=== PATIENT | male | born 1945 | race Caucasian/White ===

== ENCOUNTER 2016-12-09 11:00 | Emergency (ER) | payer MEDICARE, OTHER ==
--- NOTE | 2016-12-09 11:47 | EDM.PDOC ---
ED HPI GENERAL MEDICAL PROBLEM - General Chief Complaint: Chest Pain Stated Complaint: DIABETIC ISSUES Time Seen by Provider: 12/09/16 11:02 Source of Information: Reports: Patient, Provider History Limitations: Reports: No Limitations - History of Present Illness INITIAL COMMENTS - FREE TEXT/NARRATIVE: The patient presents from [facility] with chest pain. He says he woke up with the pain. It was sharp and in the middle of his chest to the left chest. He was short of breath with it. He took aspirin this morning. He went to see his doctor Dr Holguin and Dr Holguin did an EKG that showed a NSR with a nonspecific interventricular conduction delay but no acute changes. His CXR looked good. His WBC was elevated at 16. His glucose was elevated at 339. His creatinine was 1.3. His troponin was elevated at 0.29. He is pain free when he arrives. He denies fever, chills, cough, congestion, runny nose, abdominal pain, nausea or vomiting. He has no history of stents or PA. He had a stress test back in 2014 that was negative. Onset: Sudden Duration: Hour(s): (this morning) Location: Reports: Chest Quality: Reports: Sharp Severity: Moderate (Gone now) Improves with: Reports: None Worsens with: Reports: None Context: Reports: Activity (He woke up with it) Associated Symptoms: Reports: Chest Pain, Shortness of Breath. Denies: Cough, Fever/Chills, Headaches, Nausea/Vomiting Left Chest Pain Score (Numeric/FACES): 4 - Related Data Allergies Allergy/AdvReac Type Severity Reaction Status Date / Time No Known Allergies Allergy Verified 05/12/14 07:09 Home Meds: Home Meds Albuterol Sulfate [Proair Hfa] 2 puff IH Q4H PRN 12/09/16 [History] Allopurinol [Zyloprim] 150 mg PO DAILY 12/09/16 [History] Calcium Carbonate [Calcium] 600 mg PO DAILY 12/09/16 [History] Carisoprodol [Soma] 350 mg PO QID 12/09/16 [History] Cholecalciferol (Vitamin D3) [Vitamin D3] 5,000 unit PO DAILY 12/09/16 [History] Clopidogrel [Plavix] 75 mg PO DAILY 12/09/16 [History] Diltiazem HCl [Cartia Xt] 240 mg PO DAILY 12/09/16 [History] Hydrochlorothiazide 25 mg PO DAILY 12/09/16 [History] Insulin Glarg,Human.Rec.Analog [LantUS Solostar] 37 units SUBCUT BEDTIME [History] LORazepam [Ativan] 1 mg PO BEDTIME PRN 12/09/16 [History] Multivitamin [Daily Ottoniel] 1 each PO DAILY 12/09/16 [History] Nortriptyline HCl [Pamelor] 25 mg PO BEDTIME 12/09/16 [History] Saliva Substitution Combo No.9 [Biotene] 15 ml PO BID PRN 12/09/16 [History] Sertraline HCl [Zoloft] 50 mg PO BEDTIME 12/09/16 [History] Simvastatin [Zocor] 10 mg PO BEDTIME 12/09/16 [History] Tamsulosin [Flomax] 1 cap PO BID 12/09/16 [History] Zolpidem Tartrate [Ambien] 10 mg PO BEDTIME 12/09/16 [History] metFORMIN HCl [Glucophage] 1,000 mg PO DAILY 12/09/16 [History] prednisoLONE Acetate [Pred Forte 1% Ophth Susp] 1 drop EYERT QID PRN 12/09/16 [ History] Past Medical History HEENT History: Reports: Impaired Vision, Otitis Media Cardiovascular History: Reports: Arrhythmia, High Cholesterol, Hypertension Respiratory History: Reports: COPD Gastrointestinal History: Reports: GERD Musculoskeletal History: Reports: Arthritis Endocrine/Metabolic History: Reports: Diabetes, Type II - Past Surgical History GI Surgical History: Reports: Colonoscopy Musculoskeletal Surgical History: Reports: Knee Replacement Other Musculoskeletal Surgeries/Procedures:: Left knee Social & Family History - Family History Family Medical History: Noncontributory - Tobacco Use Smoking Status *Q: Unknown Ever Smoked - Caffeine Use Caffeine Use: Reports: Coffee - Recreational Drug Use Recreational Drug Use: No ED ROS GENERAL - Review of Systems Review Of Systems: See Below Constitutional: Reports: No Symptoms HEENT: Reports: No Symptoms Respiratory: Reports: Shortness of Breath Cardiovascular: Reports: Chest Pain Endocrine: Reports: No Symptoms GI/Abdominal: Reports: No Symptoms : Reports: No Symptoms Musculoskeletal: Reports: No Symptoms Skin: Reports: No Symptoms ED EXAM, GENERAL - Physical Exam Exam: See Below Exam Limited By: No Limitations General Appearance: Alert, No Apparent Distress Ears: Normal External Exam Nose: Normal Inspection Head: Atraumatic, Normocephalic Neck: Normal Inspection Respiratory/Chest: No Respiratory Distress, Lungs Clear, Normal Breath Sounds Cardiovascular: Regular Rate, Rhythm, No Edema, No Murmur GI/Abdominal: Soft, Non-Tender, No Organomegaly, No Mass Back Exam: Normal Inspection Extremities: Normal Inspection EKG INTERPRETATION EKG Date: 12/09/16 Time: 11:23 Rhythm: NSR Rate (Beats/Min): 94 [place]: LAD-Left [place] Deviation P-Wave: Present QRS: Wide (nonspecific IVCD) ST-T: Normal QT: Normal Course - Vital Signs Last Recorded V/S: Last Vital Signs Temp 98.2 F 12/09/16 11:16 Pulse 100 12/09/16 11:16 Resp 15 12/09/16 11:16 BP 145/77 H 12/09/16 11:16 Pulse Ox 94 L 12/09/16 11:16 - Re-Assessments/Exams Free Text/Narrative Re-Assessment/Exam: 12/09/16 11:49 I ordered an IV saline lock. His troponin is elevated at 0.29. He is having a noSTEMI. I ordered a heparin bolus of 5,000 units IV and a 1,000unit per hour drip. I also will start a nitro drip. I called [facility] in [place] and talked with Dr Lim the automotive quality manager watermelon inspector and Dr Dinero the automotive quality manager and they accepted the patient. Departure - Departure Time of Disposition: 12:00 Disposition: DC/Tfer to Acute Hospital 02 Reason for Transfer *Q: Other Condition: Serious Clinical Impression: Non-STEMI (non-ST elevated myocardial infarction) Referrals: Chano Holguin Jr, MD [Primary Care Provider] -
[2016-12-09] MEDS ORDERED: Heparin Sodium 5,000 Units/ML Vial IVPUSH ONE (11:57)
[2016-12-09] MEDS ORDERED: Nitroglycerin/D5W 25 MG/250 ML BOTTLE IV SCH (12:00)
[2016-12-09] MEDS ORDERED: Heparin Sodium/D5W 25,000 UNITS/500 ML BAG IV SCH (12:00)
== END 2016-12-09 12:50 ==
LOC: JD.ED 11:00
DX: I21.4 Non-ST elevation (NSTEMI) myocardial infarction (principal); E78.00 Pure hypercholesterolemia, unspecified; I10 Essential (primary) hypertension; E11.9 Type 2 diabetes mellitus without complications; Z79.899 Other long term (current) drug therapy; K21.9 Gastro-esophageal reflux disease without esophagitis; Z79.4 Long term (current) use of insulin
CPT/HCPCS: 96365; 96368; 96376; 99285; J1644; 93010

== ENCOUNTER 2017-07-10 11:09 | Emergency (ER) | payer MEDICARE, OTHER ==
[2017-07-10] MEDS ORDERED: HYDROmorphone 0.5 MG/0.5 ML SYRINGE IVPUSH ONE (11:24)
[2017-07-10] MEDS ORDERED: Sodium Chloride 0.9% 10 ML Syringe FLUSH PRN ×2 (11:24→12:26)
[2017-07-10] MEDS ORDERED: Sodium Chloride 0.9% 1,000 ML IV SCH (11:30)
--- NOTE | 2017-07-10 11:33 | EDM.PDOC ---
ED HPI GENERAL MEDICAL PROBLEM - General Chief Complaint: Trauma Stated Complaint: FELL OFF LADDER- SOB/RIGHT SIDE PAIN Time Seen by Provider: 07/10/17 11:18 Source of Information: Reports: Patient History Limitations: Reports: No Limitations - History of Present Illness INITIAL COMMENTS - FREE TEXT/NARRATIVE: Patient is a 72-year-old male who presents to the ED complaining of some mild confusion and pain to the right lateral chest/ right mid thoracic back on the lower ribs. Patient states yesterday while working on a ladder he was standing on the third rung of a 6 foot ladder lost his balance and fell on the affected side. Does not believe he had any loss of consciousness. Developed pain to the affected area as listed above. Pain has worsened. He went to the clinic today and was advised to come to the ED for further evaluation. He is on Plavix for coronary disease. Patient had a stroke in the past but can't member when this occurred. States it happened some time ago. Does not have any permanent deficits noted. Currently patient is feeling mildly short of breath at rest which is chronic for the patient. Denies any vision changes, headache, slurred speech, difficult swallowing, chest pain, nausea vomiting, dysuria, pain to his pelvis, pain to his upper/lower extremities, N/T extremities, or any additional complaints. States he did walk into the clinic on his own accord. He lives at home by himself. Patient is a type II diabetic with history of COPD, CAD, NSTEMI with Stent Nov 2016, GERD, arthritis, arrhythmia, hypercholesteremia, and hypertension. Current medications include: See list. He's had a left knee replacement along with shoulder surgery of the right. Cardiac cath with stent placement. Right Flank Pain Score (Numeric/FACES): 7 - Related Data Allergies Allergy/AdvReac Type Severity Reaction Status Date / Time No Known Allergies Allergy Verified 07/10/17 11:24 Home Meds: Home Meds Albuterol Sulfate [Proair Hfa] 2 puff IH Q4H PRN 12/09/16 [History] Allopurinol [Zyloprim] 150 mg PO DAILY 12/09/16 [History] Calcium Carbonate [Calcium] 600 mg PO DAILY 12/09/16 [History] Carisoprodol [Soma] 350 mg PO QID 12/09/16 [History] Cholecalciferol (Vitamin D3) [Vitamin D3] 5,000 unit PO DAILY 12/09/16 [History] Clopidogrel [Plavix] 75 mg PO DAILY 12/09/16 [History] Diltiazem HCl [Cartia Xt] 240 mg PO DAILY 12/09/16 [History] Hydrochlorothiazide 25 mg PO DAILY 12/09/16 [History] Insulin Glarg,Human.Rec.Analog [LantUS Solostar] 32 units SUBCUT BEDTIME [History] LORazepam [Ativan] 1 mg PO BEDTIME PRN 12/09/16 [History] Multivitamin [Daily Ottoniel] 1 each PO DAILY 12/09/16 [History] Saliva Substitution Combo No.9 [Biotene] 15 ml PO BID PRN 12/09/16 [History] Sertraline HCl [Zoloft] 50 mg PO BEDTIME 12/09/16 [History] Tamsulosin [Flomax] 0.4 mg PO BID 12/09/16 [History] metFORMIN HCl [Glucophage] 1,500 mg PO DAILY 12/09/16 [History] prednisoLONE Acetate [Pred Forte 1% Ophth Susp] 1 drop EYEBOTH TID PRN 12/09/16 [History] Diclofenac Sodium 1 applic TOP QID 07/10/17 [History] Lisinopril [Prinivil] 10 mg PO DAILY 07/10/17 [History] Metoprolol Succinate 50 mg PO DAILY 07/10/17 [History] Nitroglycerin 0.4 mg PO ASDIRECTED PRN 07/10/17 [History] Simvastatin [Zocor] 10 mg PO DAILY 07/10/17 [History] Past Medical History HEENT History: Reports: Impaired Vision, Otitis Media Cardiovascular History: Reports: Arrhythmia, High Cholesterol, Hypertension Respiratory History: Reports: COPD Gastrointestinal History: Reports: GERD Musculoskeletal History: Reports: Arthritis Endocrine/Metabolic History: Reports: Diabetes, Type II - Past Surgical History GI Surgical History: Reports: Colonoscopy Musculoskeletal Surgical History: Reports: Knee Replacement Other Musculoskeletal Surgeries/Procedures:: Left knee Social & Family History - Family History Family Medical History: Noncontributory - Tobacco Use Smoking Status *Q: Never Smoker - Caffeine Use Caffeine Use: Reports: Coffee - Recreational Drug Use Recreational Drug Use: No Review of Systems - Review of Systems Review Of Systems: ROS reveals no pertinent complaints other than HPI. ED EXAM, GENERAL - Physical Exam Exam: See Below Exam Limited By: No Limitations General Appearance: Alert, WD/WN, No Apparent Distress Eye Exam: Bilateral Eye: EOMI, Normal Inspection, Nystagmus, PERRL Ears: Normal External Exam, Hearing Grossly Normal Nose: Normal Inspection, Normal Mucosa Throat/Mouth: Normal Oropharynx, Normal Voice, No Airway Compromise Head: Atraumatic, Normocephalic Neck: Normal Inspection, Supple, Non-Tender, Full Range of Motion Respiratory/Chest: No Respiratory Distress, Lungs Clear, Normal Breath Sounds, No Accessory Muscle Use, Other (tenderness to the right lateral chest and right mid thoracic spine with faint abrasion and bruising present. No bony abnormalities noted. ) Cardiovascular: Normal Peripheral Pulses, Regular Rate, Rhythm, No Edema GI/Abdominal: Normal Bowel Sounds, Soft, No Organomegaly, No Distention, Tender (Tenderness to the RUQ. ) Back Exam: Decreased Range of Motion. No: Muscle Spasm, Paraspinal Tenderness, Vertebral Tenderness Extremities: Normal Inspection, Normal Range of Motion, Non-Tender, No Pedal Edema Neurological: Alert, Oriented, CN II-XII Intact, Normal Cognition, Normal Gait, No Motor/Sensory Deficits, Other (Patients state he feels somewhat confused. ) Psychiatric: Normal Affect, Normal Mood Skin Exam: Warm, Dry, Intact Course - Vital Signs Last Recorded V/S: Last Vital Signs Temp 97.4 F 07/10/17 11:19 Pulse 69 07/10/17 11:19 Resp 20 07/10/17 11:19 BP 136/73 07/10/17 11:19 Pulse Ox 95 07/10/17 11:19 - Orders/Labs/Meds Orders: Active Orders 24 hr Category Date Time Status EKG 12 Lead [EKG Documentation Completion] [RC] STAT Care 07/10/17 11:27 Active Peripheral IV Care [RC] . DIRECTED Care 07/10/17 11:25 Active Peripheral IV Insertion Adult [OM.PC] Routine Oth 07/10/17 11:24 Ordered Labs: Laboratory Tests 07/10/17 07/10/17 07/10/17 Range/Units 11:25 11:25 11:25 WBC 7.07 (4.23-9.07) K/mm3 RBC 4.79 (4.63-6.08) M/mm3 Hgb 13.9 (13.7-17.5) gm/L Hct 41.7 (40.1-51.0) % MCV 87.1 (79.0-92.2) fl MCH 29.0 (25.7-32.2) pg MCHC 33.3 (32.2-35.5) g/dl RDW Std Deviation 45.2 H (35.1-43.9) fL Plt Count 196 (163-337) K/mm3 MPV 9.6 (9.4-12.3) fl Neutrophils % (Manual) 76 H (40-60) % Band Neutrophils % 1 (0-10) % Lymphocytes % (Manual) 16 L (20-40) % Atypical Lymphs % 0 % Monocytes % (Manual) 4 (2-10) % Eosinophils % (Manual) 3 (0.8-7.0) % Basophils % (Manual) 0 L (0.2-1.2) Platelet Estimate Adequate RBC Morph Comment Normal PT (9.5-12.1) SECONDS INR APTT (24-31) SECONDS Sodium 138 (136-145) mEq/L Potassium 4.2 (3.5-5.1) mEq/L Chloride 103 (98-107) mEq/L Carbon Dioxide 23 (21-32) mEq/L Anion Gap 16.2 H (5-15) BUN 29 H (7-18) mg/dL Creatinine 1.6 H (0.7-1.3) mg/dL Est Cr Clr Drug Dosing 39.78 mL/min Estimated GFR (MDRD) 43 (>60) mL/min BUN/Creatinine Ratio 18.1 H (14-18) Glucose 199 H (83-115) mg/dL Calcium 9.5 (8.5-10.1) mg/dL Total Bilirubin 0.6 (0.2-1.0) mg/dL AST 27 (15-37) U/L ALT 40 (16-63) U/L Alkaline Phosphatase 64 (46-116) U/L CK-MB (CK-2) (0-3.6) ng/ml Troponin I 0.092 H* (0.00-0.056) ng/mL Total Protein 7.3 (6.4-8.2) g/dl Albumin 4.1 (3.4-5.0) g/dl Globulin 3.2 gm/dL Albumin/Globulin Ratio 1.3 (1-2) Lipase 183 (73-393) U/L Urine Color (Yellow) Urine Appearance (Clear) Urine pH (5.0-8.0) Ur Specific [place] (1.005-1.030) Urine Protein (Negative) Urine Glucose (UA) (Negative) Urine Ketones (Negative) Urine Occult Blood (Negative) Urine Nitrite (Negative) Urine Bilirubin (Negative) Urine Urobilinogen (0.2-1.0) Ur Leukocyte Esterase (Negative) Urine RBC (0-5) /hpf Urine WBC (0-5) /hpf Ur Epithelial Cells (0-5) /hpf Urine Bacteria (FEW) /hpf Urine Mucus (FEW) /hpf 07/10/17 07/10/17 07/10/17 Range/Units 11:25 11:25 11:25 WBC (4.23-9.07) K/mm3 RBC (4.63-6.08) M/mm3 Hgb (13.7-17.5) gm/L Hct (40.1-51.0) % MCV (79.0-92.2) fl MCH (25.7-32.2) pg MCHC (32.2-35.5) g/dl RDW Std Deviation (35.1-43.9) fL Plt Count (163-337) K/mm3 MPV (9.4-12.3) fl Neutrophils % (Manual) (40-60) % Band Neutrophils % (0-10) % Lymphocytes % (Manual) (20-40) % Atypical Lymphs % % Monocytes % (Manual) (2-10) % Eosinophils % (Manual) (0.8-7.0) % Basophils % (Manual) (0.2-1.2) Platelet Estimate RBC Morph Comment PT 11.4 (9.5-12.1) SECONDS INR 1.05 APTT 30 (24-31) SECONDS Sodium (136-145) mEq/L Potassium (3.5-5.1) mEq/L Chloride (98-107) mEq/L Carbon Dioxide (21-32) mEq/L Anion Gap (5-15) BUN (7-18) mg/dL Creatinine (0.7-1.3) mg/dL Est Cr Clr Drug Dosing mL/min Estimated GFR (MDRD) (>60) mL/min BUN/Creatinine Ratio (14-18) Glucose (83-115) mg/dL Calcium (8.5-10.1) mg/dL Total Bilirubin (0.2-1.0) mg/dL AST (15-37) U/L ALT (16-63) U/L Alkaline Phosphatase (46-116) U/L CK-MB (CK-2) 3.9 H (0-3.6) ng/ml Troponin I 0.090 H* (0.00-0.056) ng/mL Total Protein (6.4-8.2) g/dl Albumin (3.4-5.0) g/dl Globulin gm/dL Albumin/Globulin Ratio (1-2) Lipase (73-393) U/L Urine Color (Yellow) Urine Appearance (Clear) Urine pH (5.0-8.0) Ur Specific [place] (1.005-1.030) Urine Protein (Negative) Urine Glucose (UA) (Negative) Urine Ketones (Negative) Urine Occult Blood (Negative) Urine Nitrite (Negative) Urine Bilirubin (Negative) Urine Urobilinogen (0.2-1.0) Ur Leukocyte Esterase (Negative) Urine RBC (0-5) /hpf Urine WBC (0-5) /hpf Ur Epithelial Cells (0-5) /hpf Urine Bacteria (FEW) /hpf Urine Mucus (FEW) /hpf //18 Range/Units 15:05 WBC (4.23-9.07) K/mm3 RBC (4.63-6.08) M/mm3 Hgb (13.7-17.5) gm/L Hct (40.1-51.0) % MCV (79.0-92.2) fl MCH (25.7-32.2) pg MCHC (32.2-35.5) g/dl RDW Std Deviation (35.1-43.9) fL Plt Count (163-337) K/mm3 MPV (9.4-12.3) fl Neutrophils % (Manual) (40-60) % Band Neutrophils % (0-10) % Lymphocytes % (Manual) (20-40) % Atypical Lymphs % % Monocytes % (Manual) (2-10) % Eosinophils % (Manual) (0.8-7.0) % Basophils % (Manual) (0.2-1.2) Platelet Estimate RBC Morph Comment PT (9.5-12.1) SECONDS INR APTT (24-31) SECONDS Sodium (136-145) mEq/L Potassium (3.5-5.1) mEq/L Chloride (98-107) mEq/L Carbon Dioxide (21-32) mEq/L Anion Gap (5-15) BUN (7-18) mg/dL Creatinine (0.7-1.3) mg/dL Est Cr Clr Drug Dosing mL/min Estimated GFR (MDRD) (>60) mL/min BUN/Creatinine Ratio (14-18) Glucose (83-115) mg/dL Calcium (8.5-10.1) mg/dL Total Bilirubin (0.2-1.0) mg/dL AST (15-37) U/L ALT (16-63) U/L Alkaline Phosphatase (46-116) U/L CK-MB (CK-2) (0-3.6) ng/ml Troponin I (0.00-0.056) ng/mL Total Protein (6.4-8.2) g/dl Albumin (3.4-5.0) g/dl Globulin gm/dL Albumin/Globulin Ratio (1-2) Lipase (73-393) U/L Urine Color Yellow (Yellow) Urine Appearance Clear (Clear) Urine pH 6.0 (5.0-8.0) Ur Specific [place] 1.020 (1.005-1.030) Urine Protein Negative (Negative) Urine Glucose (UA) Negative (Negative) Urine Ketones Negative (Negative) Urine Occult Blood Negative (Negative) Urine Nitrite Negative (Negative) Urine Bilirubin Negative (Negative) Urine Urobilinogen 0.2 (0.2-1.0) Ur Leukocyte Esterase Negative (Negative) Urine RBC Not seen (0-5) /hpf Urine WBC Not seen (0-5) /hpf Ur Epithelial Cells 0-5 (0-5) /hpf Urine Bacteria Not seen (FEW) /hpf Urine Mucus Not seen (FEW) /hpf Meds: Medications Discontinued Medications Generic Name Dose Route Start Last Admin Trade Name Freq PRN Reason Stop Dose Admin Aspirin 324 mg 07/10/17 12:25 07/10/17 12:49 Aspirin PO 07/10/17 12:26 324 mg ONETIME ONE Administration Hydromorphone HCl 0.5 mg 07/10/17 11:24 07/10/17 11:31 Dilaudid IVPUSH 07/10/17 11:25 0.5 mg ONETIME ONE Administration Sodium Chloride 1,000 mls @ 150 mls/hr 07/10/17 11:30 07/10/17 11:33 Normal Saline IV 150 mls/hr ASDIRECTED SRAVANI Administration Sodium Chloride 250 mls @ 80 mls/hr 07/10/17 12:30 07/10/17 12:33 Normal Saline IV 80 mls/hr ASDIRECTED SRAVANI Administration Sodium Chloride 250 mls @ 999 mls/hr 07/10/17 12:47 Normal Saline IV 07/10/17 13:02 .BOLUS ONE Iopamidol 100 ml 07/10/17 12:26 07/10/17 12:33 Isovue-370 (76%) IVPUSH 07/10/17 12:27 100 ml ONETIME ONE Administration Sodium Chloride 10 ml 07/10/17 11:24 07/10/17 11:31 Saline Flush FLUSH 10 ml ASDIRECTED PRN Administration Keep Vein Open Sodium Chloride 10 ml 07/10/17 12:26 07/10/17 12:33 Saline Flush FLUSH 10 ml ONETIME PRN Administration IV FLUSH - Re-Assessments/Exams Free Text/Narrative Re-Assessment/Exam: Discussed patient with Dr. Gentile. He has evaluated the patient within 20 minutes of arrival. Reviewed all labs and studies to be ordered with Dr. Gentile. Peripheral IV stared with NS 150ml/hr. Ordered dilaudid 0.5mg IVP. Initial labs and studies include: CBC, C14, Lipase, UA, EKG, CT of the chest/ abdomen/pelvis, PT/INR, PTT, and CT of the head. I will await for Cr prior to study. EKG: SR rateof 66 with LBBB. HI 161 and QTc 432. LBBB was present prior. Labs reviewed: CBC essentially normal. Sodium 130, potassium 4.2, AG 16.2, creatinine 1.6, glucose 199, GFR 43, AST ALT within normal limits, lipase 183, troponin 0.092. Ordered ASA 324 mg PO. WIll await for CT of the head prior to giving. Patient has a history of coronary disease and is on Plavix. Preliminary Reading of the head: No intracranial hemorrhage noted. Final interpretation is pending. 07/10/17 12:52 Discussed results of labs. Patient does not want to go to [place] for Cardiologists Consult. States he is not able to get a ride home and or does not want to ride in a ambulance. We have come to the shared decision to obtain 2nd troponin in 3 hrs from previous draw. If continuing to rise will discuss transfer at that time. Patient is in agreement, but states he does not want to go to [place]. I have ordered a CKMB and 2nd troponin. Patient is resting comfortably in bed. NO chest pain. Patient is on metoprolol , lisinopril, diltiazem, zocor, and hydrochlorothiazide. Discussed with Dr. Gentile about starting heparin and/or nitro. He agrees not to at this point if patient is going to leave. 07/10/17 13:[address] impression: Old right-sided infarct. No acute findings noted. CT chest Technique: Multiple axial sections were obtained from above the lung apices inferiorly through the lung bases. Intravenous contrast was utilized. Comparison: No prior chest imaging. Findings: Mediastinum and hilar regions appear unremarkable. No aneurysm is seen within the aorta. No dissection is seen within the aorta. No pericardial thickening is seen. Soft tissue density is seen next to the distal esophagus. This finding measures up to 6.8 cm. This finding is nonspecific but most likely is a congenital or developmental anomaly and is benign. Lungs are clear with no acute parenchymal densities. No lung contusions are seen. No pleural effusions or pneumothorax is seen. Bone window settings shows scattered degenerative change within the spine. No rib fracture is appreciated. No compression deformity is seen within the spine. Impression: 1. Soft tissue abnormality next to the distal esophagus measuring up to 6.8 cm. As noted above, this is felt to most likely be a developmental or congenital anomaly and is benign. 2. Nothing acute is seen on CT study of the chest. Head CT Technique: Multiple axial sections through the brain were obtained. Intravenous contrast was not utilized. Comparison: No prior intracranial imaging. Findings: Ventricles along with basal cisterns and sulci the convexities are mildly prominent. Old infarct is noted within the right temporal lobe extending into the white matter adjacent to the frontal horn. This causes some ex vacuole enlargement of the frontal horn of the lateral ventricle. No other abnormal parenchymal densities are seen. No evidence of intracranial hemorrhage. No midline shift or mass effect is seen. Atherosclerotic calcification is seen within the vertebral vessels. No acute calvarial abnormality is seen. Slight mucosal thickening is seen within the posterior right ethmoid sinus. Impression: 1. Old right-sided infarct. Nothing acute is appreciated on noncontrast head CT. 2. Incidental sinus findings. CKMB: 3.9 which is the upper limits of normal 3.6. 1402 2nd troponin: Second troponin 0.090. This is slightly trended downward. I did discuss results with the patient. Patient is adamant about not being transferred to [place] and/or admitted to the hospital here. [address] Wisdom on-call Specialty Molder at [facility]. He reviewed previous admission in November when the patient received a stent to the LAD. There is small vessel disease noted to the marginal and circumflex. Right coronary was normal. Patient also able to walk up 2 flights of stairs and 200 yards without getting short of breath. This is unchanged. Dr. Wisdom is not to concerned about the numbers if functional capacity is unchanged. Does recommend admission to the hospital for observation with 3rd troponin and echocardiogram obtained tomorrow. I discussed this with the patient. Patient again refuses to be admitted to the hospital. He wants to go home and eat [employer]. I instructed him that this is related to his heart and could potentially be quite serious. Patient again states he does not want to be admitted to the hospital. He will sign out AMA. Departure - Departure Time of Disposition: 14:47 Disposition: Against Medical Advice 07 Condition: Fair Clinical Impression: Discomfort of chest wall, Mid back pain on right side, Elevated troponin, Elevated CK-MB level, Renal insufficiency, History of heart artery stent Contusion of back Qualifiers: Encounter type: initial encounter Laterality: right Qualified Code(s): S20.221A - Contusion of right back wall of thorax, initial encounter Coronary artery disease Qualifiers: Coronary Disease-Associated Artery/Lesion type: unspecified vessel or lesion type [place] vs. transplanted heart: [place] heart Associated angina: without angina Qualified Code(s): I25.10 - Atherosclerotic heart disease of [place] coronary artery without angina pectoris - Discharge Information Instructions: Coronary Artery Disease, Male, Cardiac-Specific Troponin I and T Test, Contusion, [id number], Blunt Chest Trauma, Chest Wall Pain Referrals: Chano Holguin Jr, MD [Primary Care Provider] - Forms: ED Department Discharge, Refusal of Care AMA Additional Instructions: As discussed you have a contusion to the right lateral chest and mid right back secondary to the fall. CT of the head, chest/abdomen/pelvis did not reveal any concerning findings. Labs indicated a heart enzymes specifically. Your heart call troponin was elevated. Second testing indicated that this was decreased. You do have renal disease which may have contributed to the elevation. I did speak to Dr. Wisdom try out person Cardiologists and he suggested admission to the hospital with repeat cardiac labs and echocardiogram tomorrow. Since you do not want to be admitted I will have you sign out AMA. Outpatient order for echocardiogram has been placed. They will call you and make an appointment. Please continue taking all your home medications as prescribed. Refrain from working on any ladders. Please return to the ED if you develop any new or worsening symptoms as discussed. Please follow up with your PCP in the next 1-2 days for reevaluation. - My Orders Last 24 Hours: My Active Orders 07/10/17 11:24 Peripheral IV Insertion Adult [OM.PC] Routine 07/10/17 11:25 Peripheral IV Care [RC] . DIRECTED 07/10/17 11:27 EKG 12 Lead [EKG Documentation Completion] [RC] STAT - Assessment/Plan Last 24 Hours: My Active Orders 07/10/17 11:24 Peripheral IV Insertion Adult [OM.PC] Routine 07/10/17 11:25 Peripheral IV Care [RC] . DIRECTED 07/10/17 11:27 EKG 12 Lead [EKG Documentation Completion] [RC] STAT
[2017-07-10] MEDS ORDERED: Aspirin 81 MG Tab.Chew PO ONE (12:25)
[2017-07-10] MEDS ORDERED: Iopamidol 755 Mg/ML 100 ML Bottle IVPUSH ONE (12:26)
[2017-07-10] MEDS ORDERED: Sodium Chloride 0.9% 250 ML IV SCH (12:30)
[2017-07-10] MEDS ORDERED: Sodium Chloride 0.9% 250 ML IV ONE (12:47)
--- NOTE | 2017-07-10 12:54 | CT ---
Head CT Technique: Multiple axial sections through the brain were obtained. Intravenous contrast was not utilized. Comparison: No prior intracranial imaging. Findings: Ventricles along with basal cisterns and sulci the convexities are mildly prominent. Old infarct is noted within the right temporal lobe extending into the white matter adjacent to the frontal horn. This causes some ex vacuole enlargement of the frontal horn of the lateral ventricle. No other abnormal parenchymal densities are seen. No evidence of intracranial hemorrhage. No midline shift or mass effect is seen. Atherosclerotic calcification is seen within the vertebral vessels. No acute calvarial abnormality is seen. Slight mucosal thickening is seen within the posterior right ethmoid sinus. Impression: 1. Old right-sided infarct. Nothing acute is appreciated on noncontrast head CT. 2. Incidental sinus findings. Diagnostic code #2
--- NOTE | 2017-07-10 13:06 | CT ---
CT chest Technique: Multiple axial sections were obtained from above the lung apices inferiorly through the lung bases. Intravenous contrast was utilized. Comparison: No prior chest imaging. Findings: Mediastinum and hilar regions appear unremarkable. No aneurysm is seen within the aorta. No dissection is seen within the aorta. No pericardial thickening is seen. Soft tissue density is seen next to the distal esophagus. This finding measures up to 6.8 cm. This finding is nonspecific but most likely is a congenital or developmental anomaly and is benign. Lungs are clear with no acute parenchymal densities. No lung contusions are seen. No pleural effusions or pneumothorax is seen. Bone window settings shows scattered degenerative change within the spine. No rib fracture is appreciated. No compression deformity is seen within the spine. Impression: 1. Soft tissue abnormality next to the distal esophagus measuring up to 6.8 cm. As noted above, this is felt to most likely be a developmental or congenital anomaly and is benign. 2. Nothing acute is seen on CT study of the chest. Diagnostic code #3 CT abdomen and pelvis Technique: Multiple axial sections were obtained from above the dome of the diaphragm inferiorly through the pubic symphysis. Intravenous contrast was utilized. No oral contrast has been given. Findings: Liver shows no focal parenchymal abnormality. Spleen appears within normal limits. Adrenal glands show no nodule. Pancreas is normal. Gallbladder contains no calcified gallstones. Adrenal glands show no nodule. Kidneys show symmetric contrast enhancement without hydronephrosis or mass. Aorta shows atherosclerotic change without aneurysmal dilatation. No retroperitoneal adenopathy or mesenteric abnormalities are seen. No pelvic mass or adenopathy is seen. Delayed images shows contrast within distal ureters and within the bladder. No free fluid or inflammatory change is seen. No bowel dilatation is identified. Bone window settings were reviewed which shows disc space narrowing and vacuum phenomena within the L1-L2 through L4-L5 disc. Small amount of epidural air is seen posterior to L4 compatible with annular rupture. Vacuum phenomenon is also noted within the apophyseal joints at L4-L5. Old ununited fracture is identified within L2 on the right side involving the transverse process. Impression: 1. Incidental findings. Nothing acute is seen on CT study of the abdomen and pelvis. Diagnostic code #2
== END 2017-07-10 15:46 | disposition left against medical advice (07) ==
LOC: JD.ED 11:09
DX: S20.221A Contusion of right back wall of thorax, initial encounter (principal); M54.9 Dorsalgia, unspecified; R79.89 Other specified abnormal findings of blood chemistry; N28.9 Disorder of kidney and ureter, unspecified; I25.10 Atherosclerotic heart disease of native coronary artery without angina pectoris; E11.9 Type 2 diabetes mellitus without complications; J44.9 Chronic obstructive pulmonary disease, unspecified; I10 Essential (primary) hypertension; I25.2 Old myocardial infarction; Z79.84 Long term (current) use of oral hypoglycemic drugs; Z79.899 Other long term (current) drug therapy; Z95.5 Presence of coronary angioplasty implant and graft; W11.XXXA Fall on and from ladder, initial encounter
CPT/HCPCS: 36415; 70450; 71260; 74177; 80053; 81001; 82553; 83690; 84484; 85007; 85027; 85610; 85730; 93005; 96361; 96374; 99284; A9270; J1170; J7040; J7050; Q9967

== ENCOUNTER 2017-07-12 12:34 | Emergency (ER) | payer MEDICARE, OTHER ==
--- NOTE | 2017-07-12 13:10 | EDM.PDOC ---
ED HPI GENERAL MEDICAL PROBLEM - General Chief Complaint: Back Pain or Injury Stated Complaint: BACK PAIN NEEDS PAIN MEDS Time Seen by Provider: 07/12/17 12:50 Source of Information: Reports: Patient History Limitations: Reports: No Limitations - History of Present Illness INITIAL COMMENTS - FREE TEXT/NARRATIVE: The patient presents with right low back pain. He was seen here 2 days ago for a fall off of a ladder. He had CTs of his head, chest, abdomen and pelvis. He had no fractures or internal injuries. He has aleve at home for the pain but he says it is not cutting it. He would like something more. He has no numbness or weakness down his legs. Onset: Sudden Duration: Day(s): (2) Location: Reports: Back (low) Quality: Reports: Sharp Severity: Moderate Improves with: Reports: Immobilization Worsens with: Reports: Movement Context: Reports: Trauma (He fell 3 feet off of a ladder) Associated Symptoms: Reports: No Other Symptoms Treatments TOMBSTONE CARVER: Reports: Other (see below) Other Treatments TOMBSTONE CARVER: aleeve Right Lower Back Pain Score (Numeric/FACES): 8 - Related Data Allergies Allergy/AdvReac Type Severity Reaction Status Date / Time No Known Allergies Allergy Verified 07/10/17 11:24 Home Meds: Home Meds Albuterol Sulfate [Proair Hfa] 2 puff IH Q4H PRN 12/09/16 [History] Allopurinol [Zyloprim] 150 mg PO DAILY 12/09/16 [History] Calcium Carbonate [Calcium] 600 mg PO DAILY 12/09/16 [History] Carisoprodol [Soma] 350 mg PO QID 12/09/16 [History] Cholecalciferol (Vitamin D3) [Vitamin D3] 5,000 unit PO DAILY 12/09/16 [History] Clopidogrel [Plavix] 75 mg PO DAILY 12/09/16 [History] Diltiazem HCl [Cartia Xt] 240 mg PO DAILY 12/09/16 [History] Hydrochlorothiazide 25 mg PO DAILY 12/09/16 [History] Insulin Glarg,Human.Rec.Analog [LantUS Solostar] 32 units SUBCUT BEDTIME [History] LORazepam [Ativan] 1 mg PO BEDTIME PRN 12/09/16 [History] Multivitamin [Daily Ottoniel] 1 each PO DAILY 12/09/16 [History] Saliva Substitution Combo No.9 [Biotene] 15 ml PO BID PRN 12/09/16 [History] Sertraline HCl [Zoloft] 50 mg PO BEDTIME 12/09/16 [History] Tamsulosin [Flomax] 0.4 mg PO BID 12/09/16 [History] metFORMIN HCl [Glucophage] 1,500 mg PO DAILY 12/09/16 [History] prednisoLONE Acetate [Pred Forte 1% Ophth Susp] 1 drop EYEBOTH TID PRN 12/09/16 [History] Diclofenac Sodium 1 applic TOP QID 07/10/17 [History] Lisinopril [Prinivil] 10 mg PO DAILY 07/10/17 [History] Metoprolol Succinate 50 mg PO DAILY 07/10/17 [History] Nitroglycerin 0.4 mg PO ASDIRECTED PRN 07/10/17 [History] Simvastatin [Zocor] 10 mg PO DAILY 07/10/17 [History] Hydrocodone/Acetaminophen [Hydrocodon-Acetaminophen 5-325] 1 - 2 each PO Q6HR PRN #20 tablet 07/12/17 [Rx] Past Medical History HEENT History: Reports: Impaired Vision, Otitis Media Cardiovascular History: Reports: Arrhythmia, High Cholesterol, Hypertension Respiratory History: Reports: COPD Gastrointestinal History: Reports: GERD Musculoskeletal History: Reports: Arthritis Endocrine/Metabolic History: Reports: Diabetes, Type II - Past Surgical History GI Surgical History: Reports: Colonoscopy Musculoskeletal Surgical History: Reports: Knee Replacement Other Musculoskeletal Surgeries/Procedures:: Left knee Social & Family History - Family History Family Medical History: Noncontributory - Tobacco Use Smoking Status *Q: Never Smoker - Caffeine Use Caffeine Use: Reports: Coffee - Recreational Drug Use Recreational Drug Use: No ED ROS GENERAL - Review of Systems Review Of Systems: See Below Constitutional: Reports: No Symptoms HEENT: Reports: No Symptoms Respiratory: Reports: No Symptoms Cardiovascular: Reports: No Symptoms Endocrine: Reports: No Symptoms GI/Abdominal: Reports: No Symptoms : Reports: No Symptoms Musculoskeletal: Reports: Back Pain (Right lower) ED EXAM,LOWER BACK PAIN/INJURY - Physical Exam Exam: See Below Exam Limited By: No Limitations General Appearance: Alert, No Apparent Distress Ears: Normal External Exam Nose: Normal Inspection Head: Atraumatic, Normocephalic Neck: Normal Inspection, Supple, Non-Tender Respiratory/Chest: No Respiratory Distress, Lungs Clear, Normal Breath Sounds Cardiovascular: Regular Rate, Rhythm, No Edema, No Murmur GI/Abdominal: Soft, Non-Tender, No Organomegaly, No Mass Back Exam: Other (Pain upon palpation to the right lower back) Extremities: Normal Inspection Neurological: Alert, No Motor/Sensory Deficits, Oriented x 3 Course - Vital Signs Last Recorded V/S: Last Vital Signs Temp 97.4 F 07/12/17 12:47 Pulse 68 07/12/17 12:47 Resp 20 07/12/17 12:47 BP 170/79 H 07/12/17 12:47 Pulse Ox 96 07/12/17 12:47 Departure - Departure Time of Disposition: 13:10 Disposition: Home, Self-Care 01 Condition: Good Clinical Impression: Discomfort of chest wall, Mid back pain on right side Contusion of back Qualifiers: Encounter type: initial encounter Laterality: right Qualified Code(s): S20.221A - Contusion of right back wall of thorax, initial encounter Low back pain Qualifiers: Chronicity: acute Back pain laterality: right Sciatica presence: without sciatica Qualified Code(s): M54.5 - Low back pain - Discharge Information Prescriptions: Hydrocodone/Acetaminophen [Hydrocodon-Acetaminophen 5-325] 1 - 2 each PO Q6HR PRN #20 tablet PRN Reason: Pain Referrals: Chano Holguin Jr, MD [Primary Care Provider] - 1 Week Additional Instructions: Ice the areas that hurt for 15 minutes 3 times per day for 2 days. Take the hydrocodone as needed for pain. Please return if you are worse.
== END 2017-07-12 13:20 | disposition home or self-care (01) ==
LOC: JD.ED 12:34
DX: S20.221A Contusion of right back wall of thorax, initial encounter (principal); R07.89 Other chest pain; M54.5 Low back pain; E78.00 Pure hypercholesterolemia, unspecified; I10 Essential (primary) hypertension; J44.9 Chronic obstructive pulmonary disease, unspecified; E11.9 Type 2 diabetes mellitus without complications; Z79.899 Other long term (current) drug therapy; Z79.4 Long term (current) use of insulin; W11.XXXA Fall on and from ladder, initial encounter
CPT/HCPCS: 99283

== ENCOUNTER 2018-03-20 12:54 | Inpatient (IN) | payer MEDICARE, OTHER ==
[2018-03-20] MEDS ORDERED: Sodium Chloride 0.9% 10 ML Syringe FLUSH PRN (13:21)
[2018-03-20] MEDS ORDERED: Albuterol/Ipratropium 3.0-0.5 MG/3 ML Neb Soln NEB ONE (13:29)
[2018-03-20] MEDS ORDERED: Furosemide 40 MG/4 ML VIAL IVPUSH ONE (13:29)
[2018-03-20] MEDS ORDERED: Insulin Regular, Human 100 Units/ML 3 ML Vial IVPUSH ONE ×2 (14:17→16:12)
--- NOTE | 2018-03-20 14:25 | EDM.PDOC ---
ED HPI GENERAL MEDICAL PROBLEM - General Chief Complaint: Respiratory Problem Stated Complaint: SOB Time Seen by Provider: 03/20/18 13:20 Source of Information: Reports: Patient, RN Notes Reviewed - History of Present Illness INITIAL COMMENTS - FREE TEXT/NARRATIVE: 73-year-old male has come in with complaint of weak, dizzy, short of breath. He states this all started about a week ago. He denies chest discomfort. He has not been coughing any more than usual. He has had no fever chills nausea or vomiting. He is more short of breath with ambulation. He also is diabetic. He states "I take my insulin every night". He does not check blood sugars for himself. He states "I got out of the habit". He does not smoke. Back Pain Score (Numeric/FACES): 6 - Related Data Allergies Allergy/AdvReac Type Severity Reaction Status Date / Time No Known Allergies Allergy Verified 03/20/18 13:07 Home Meds: Home Meds Albuterol Sulfate [Proair Hfa] 2 puff IH Q4H PRN 12/09/16 [History] Allopurinol [Zyloprim] 150 mg PO DAILY 12/09/16 [History] Clopidogrel [Plavix] 75 mg PO DAILY 12/09/16 [History] Diltiazem HCl [Cartia Xt] 240 mg PO DAILY 12/09/16 [History] Hydrochlorothiazide 25 mg PO DAILY 12/09/16 [History] Insulin Glarg,Human.Rec.Analog [LantUS Solostar] 32 units SUBCUT BEDTIME [History] LORazepam [Ativan] 1 mg PO BEDTIME PRN 12/09/16 [History] Sertraline HCl [Zoloft] 50 mg PO BEDTIME 12/09/16 [History] Tamsulosin [Flomax] 0.4 mg PO BID 12/09/16 [History] metFORMIN HCl [Glucophage] 1,500 mg PO DAILY 12/09/16 [History] Metoprolol Succinate 50 mg PO DAILY 07/10/17 [History] Nitroglycerin 0.4 mg PO ASDIRECTED PRN 07/10/17 [History] Indomethacin 25 mg PO TID 03/20/18 [History] Past Medical History HEENT History: Reports: Impaired Vision, Otitis Media Cardiovascular History: Reports: Arrhythmia, High Cholesterol, Hypertension Respiratory History: Reports: COPD Gastrointestinal History: Reports: GERD Musculoskeletal History: Reports: Arthritis Endocrine/Metabolic History: Reports: Diabetes, Type II - Past Surgical History GI Surgical History: Reports: Colonoscopy Musculoskeletal Surgical History: Reports: Knee Replacement Other Musculoskeletal Surgeries/Procedures:: Left knee Social & Family History - Family History Family Medical History: Noncontributory - Tobacco Use Smoking Status *Q: Never Smoker Second Hand Smoke Exposure: No - Caffeine Use Caffeine Use: Reports: Coffee - Recreational Drug Use Recreational Drug Use: No ED ROS GENERAL - Review of Systems Review Of Systems: See Below Constitutional: Denies: Fever, Chills, Diaphoresis HEENT: Denies: Throat Pain Respiratory: Reports: Shortness of Breath, Cough. Denies: Sputum (Area occasional) Cardiovascular: Reports: Dyspnea on Exertion, Lightheadedness. Denies: Chest Pain Endocrine: Reports: Fatigue GI/Abdominal: Denies: Abdominal Pain, Diarrhea, Nausea, Vomiting Musculoskeletal: Reports: No Symptoms Skin: Reports: No Symptoms Neurological: Reports: Dizziness. Denies: Numbness, Tingling, Trouble Speaking ED EXAM, GENERAL - Physical Exam Exam: See Below General Appearance: Alert, Other (Moderately short of breath) Eye Exam: Bilateral Eye: PERRL Throat/Mouth: Normal Inspection Head: Atraumatic (On mucosa mildly dry). No: Facial Swelling Neck: Supple, Full Range of Motion, Other (No JVD) Respiratory/Chest: Respiratory Distress, Rales (Water tachypnea). No: Rhonchi ( mild bilateral), Wheezing Cardiovascular: Tachycardia GI/Abdominal: Soft, Non-Tender. No: Guarding Back Exam: No: CVA Tenderness (L), CVA Tenderness (R) Extremities: No: Pedal Edema, Leg Pain Neurological: Alert, Oriented, No Motor/Sensory Deficits Skin Exam: Warm, Dry, Normal Color EKG INTERPRETATION EKG Date: 03/20/18 Rhythm: Other (Sinus tach) P-Wave: Present QRS: Other (Borderline Q waves inferior and anterior leads, left anterior fascicular block) ST-T: Normal Course - Vital Signs Last Recorded V/S: Last Vital Signs Temp 97.9 F 03/22/18 11:22 Pulse 96 03/22/18 08:10 Resp 16 03/22/18 11:22 BP 149/68 H 03/22/18 11:22 Pulse Ox 95 03/22/18 11:22 - Orders/Labs/Meds Orders: Medication Orders Acetaminophen (Tylenol) 650 mg PO Q4H PRN PRN Reason: Pain (Mild 1-3)/fever Hydrocodone Bitart/Acetaminophen ([place] 325-5 Mg) 1 tab PO Q4H PRN PRN Reason: Pain (moderate 4-6) Last Admin: 03/21/18 20:38 Dose: 1 tab Albuterol (Proventil Neb Soln) 2.5 mg NEB Q2H PRN PRN Reason: Shortness Of Breath/wheezing Albuterol (Proventil Hfa) 0 gm INH Q4H PRN PRN Reason: Wheezing Last Admin: 03/21/18 18:19 Dose: 2 puff Albuterol/Ipratropium (Duoneb 3.0-0.5 Mg/3 Ml) 3 ml NEB Q4H PRN PRN Reason: Shortness Of Breath/wheezing Allopurinol (Zyloprim) 150 mg PO DAILY [facility] Last Admin: 03/22/18 08:11 Dose: 150 mg Bisacodyl (Dulcolax) 5 mg PO DAILY PRN PRN Reason: Constipation Clopidogrel Bisulfate (Plavix) 75 mg PO DAILY [facility] Last Admin: 03/22/18 08:10 Dose: 75 mg Dextrose/Water (Dextrose 50% In Water) 50 ml IVPUSH ASDIRECTED PRN PRN Reason: Hypoglycemia Diltiazem HCl (Dilacor Xr) 240 mg PO DAILY [facility] Last Admin: 03/22/18 08:11 Dose: 240 mg Admin: 03/21/18 11:52 Dose: 240 mg Docusate Sodium (Colace) 100 mg PO BID PRN PRN Reason: Constipation Enoxaparin Sodium (Lovenox) 80 mg SUBCUT DAILY [facility] Last Admin: 03/22/18 08:09 Dose: 80 mg Famotidine (Pepcid) 20 mg PO DAILY [facility] Last Admin: 03/22/18 08:10 Dose: 20 mg Doxycycline Hyclate 100 mg/ (Sodium Chloride) 100 mls @ 100 mls/hr IV Q12HR [facility] Last Admin: 03/22/18 08:35 Dose: 100 mls/hr Infusion: 03/21/18 22:31 Dose: 100 mls/hr Admin: 03/21/18 21:31 Dose: 100 mls/hr Insulin Human Lispro (Humalog) 0 unit SUBCUT QIDACANDBED [facility]; Protocol Last Admin: 03/22/18 11:34 Dose: 9 units Magnesium Hydroxide (Milk Of Magnesia) 30 ml PO Q12H PRN PRN Reason: Constipation Metoprolol Tartrate (Lopressor) 50 mg PO Q12H [facility] Last Admin: 03/22/18 08:10 Dose: 50 mg Admin: 03/21/18 20:40 Dose: 50 mg Nitroglycerin (Nitrostat) 0.4 mg SL ASDIRECTED PRN PRN Reason: Chest Pain Ondansetron HCl (Zofran Odt) 4 mg PO Q4H PRN PRN Reason: nausea, able to take PO Ondansetron HCl (Zofran) 4 mg IV Q4H PRN PRN Reason: Nausea/Vomiting Polyethylene Glycol (Miralax) 17 gm PO DAILY PRN PRN Reason: Constipation Senna/Docusate Sodium (Senna Plus) 1 tab PO BID PRN PRN Reason: Constipation Sertraline HCl (Zoloft) 50 mg PO BEDTIME [facility] Last Admin: 03/21/18 20:40 Dose: 50 mg Sodium Chloride (Saline Flush) 10 ml FLUSH ASDIRECTED PRN PRN Reason: Keep Vein Open Last Admin: 03/20/18 14:04 Dose: 10 ml Tamsulosin HCl (Flomax) 0.4 mg PO BID [facility] Last Admin: 03/22/18 08:11 Dose: 0.4 mg Admin: 03/21/18 20:40 Dose: 0.4 mg Temazepam (Restoril) 7.5 mg PO BEDTIME PRN PRN Reason: Sleep Last Admin: 03/21/18 20:40 Dose: 7.5 mg Admin: 03/20/18 21:19 Dose: 7.5 mg Labs: Laboratory Tests 03/20/18 03/20/18 03/20/18 Range/Units 13:35 13:35 13:35 WBC 13.46 H (4.23-9.07) K/mm3 RBC 5.21 (4.63-6.08) M/mm3 Hgb 15.1 (13.7-17.5) gm/L Hct 44.8 (40.1-51.0) % MCV 86.0 (79.0-92.2) fl MCH 29.0 (25.7-32.2) pg MCHC 33.7 (32.2-35.5) g/dl RDW Std Deviation 41.3 (35.1-43.9) fL Plt Count 228 (163-337) K/mm3 MPV 11.2 (9.4-12.3) fl Neut % (Auto) 83.2 H (34.0-67.9) % Lymph % (Auto) 9.1 L (21.8-53.1) % [place] % (Auto) 5.9 (5.3-12.2) % Eos % (Auto) 0.4 L (0.8-7.0) Baso % (Auto) 0.1 (0.1-1.2) % Neut # (Auto) 11.19 H (1.78-5.38) K/mm3 Lymph # (Auto) 1.23 L (1.32-3.57) K/mm3 [place] # (Auto) 0.80 (0.30-0.82) K/mm3 Eos # (Auto) 0.05 (0.04-0.54) K/mm3 Baso # (Auto) 0.02 (0.01-0.08) K/mm3 Manual Slide Review Abnormal smear Puncture Site ABG pH (7.35-7.45) ABG pCO2 (35.0-45.0) mmHg ABG pO2 (80.0-100.0) mmHg ABG HCO3 (22.0-26.0) meq/L ABG O2 Saturation (96.0-97.0) % ABG Base Excess (-2-2.0) Kaz Test A-a Gradient mmHg Sodium 130 L (136-145) mEq/L Potassium 4.9 (3.5-5.1) mEq/L Chloride 96 L (98-107) mEq/L Carbon Dioxide 21 (21-32) mEq/L Anion Gap 17.9 H (5-15) BUN 49 H (7-18) mg/dL Creatinine 2.7 H (0.7-1.3) mg/dL Est Cr Clr Drug Dosing 24.78 mL/min Estimated GFR (MDRD) 23 (>60) mL/min BUN/Creatinine Ratio 18.1 H (14-18) Glucose 663 H* (83-115) mg/dL Lactic Acid (0.4-2.0) mmol/L Calcium 8.9 (8.5-10.1) mg/dL Total Bilirubin 0.8 (0.2-1.0) mg/dL AST 27 (15-37) U/L ALT 42 (16-63) U/L Alkaline Phosphatase 59 (46-116) U/L Troponin I 0.182 H* (0.00-0.056) ng/mL C-Reactive Protein 0.5 (<1.0) mg/dL NT-Pro-B Natriuret Pep (0-125) pg/mL Total Protein 6.7 (6.4-8.2) g/dl Albumin 3.6 (3.4-5.0) g/dl Globulin 3.1 gm/dL Albumin/Globulin Ratio 1.2 (1-2) Mycoplasma pneumon IgM (NEGATIVE) 03/20/18 03/20/18 03/20/18 Range/Units 13:35 13:35 14:20 WBC (4.23-9.07) K/mm3 RBC (4.63-6.08) M/mm3 Hgb (13.7-17.5) gm/L Hct (40.1-51.0) % MCV (79.0-92.2) fl MCH (25.7-32.2) pg MCHC (32.2-35.5) g/dl RDW Std Deviation (35.1-43.9) fL Plt Count (163-337) K/mm3 MPV (9.4-12.3) fl Neut % (Auto) (34.0-67.9) % Lymph % (Auto) (21.8-53.1) % [place] % (Auto) (5.3-12.2) % Eos % (Auto) (0.8-7.0) Baso % (Auto) (0.1-1.2) % Neut # (Auto) (1.78-5.38) K/mm3 Lymph # (Auto) (1.32-3.57) K/mm3 [place] # (Auto) (0.30-0.82) K/mm3 Eos # (Auto) (0.04-0.54) K/mm3 Baso # (Auto) (0.01-0.08) K/mm3 Manual Slide Review Puncture Site Rt radial ABG pH 7.40 (7.35-7.45) ABG pCO2 31.8 L (35.0-45.0) mmHg ABG pO2 61.0 L (80.0-100.0) mmHg ABG HCO3 19.4 L (22.0-26.0) meq/L ABG O2 Saturation 89.2 L (96.0-97.0) % ABG Base Excess -3.8 L (-2-2.0) Kaz Test Positive A-a Gradient 33 mmHg Sodium (136-145) mEq/L Potassium (3.5-5.1) mEq/L Chloride (98-107) mEq/L Carbon Dioxide (21-32) mEq/L Anion Gap (5-15) BUN (7-18) mg/dL Creatinine (0.7-1.3) mg/dL Est Cr Clr Drug Dosing mL/min Estimated GFR (MDRD) (>60) mL/min BUN/Creatinine Ratio (14-18) Glucose (83-115) mg/dL Lactic Acid (0.4-2.0) mmol/L Calcium (8.5-10.1) mg/dL Total Bilirubin (0.2-1.0) mg/dL AST (15-37) U/L ALT (16-63) U/L Alkaline Phosphatase (46-116) U/L Troponin I (0.00-0.056) ng/mL C-Reactive Protein (<1.0) mg/dL NT-Pro-B Natriuret Pep 336 H (0-125) pg/mL Total Protein (6.4-8.2) g/dl Albumin (3.4-5.0) g/dl Globulin gm/dL Albumin/Globulin Ratio (1-2) Mycoplasma pneumon IgM Negative (NEGATIVE) 03/20/18 03/20/18 03/20/18 Range/Units 15:30 15:30 16:48 WBC (4.23-9.07) K/mm3 RBC (4.63-6.08) M/mm3 Hgb (13.7-17.5) gm/L Hct (40.1-51.0) % MCV (79.0-92.2) fl MCH (25.7-32.2) pg MCHC (32.2-35.5) g/dl RDW Std Deviation (35.1-43.9) fL Plt Count (163-337) K/mm3 MPV (9.4-12.3) fl Neut % (Auto) (34.0-67.9) % Lymph % (Auto) (21.8-53.1) % [place] % (Auto) (5.3-12.2) % Eos % (Auto) (0.8-7.0) Baso % (Auto) (0.1-1.2) % Neut # (Auto) (1.78-5.38) K/mm3 Lymph # (Auto) (1.32-3.57) K/mm3 [place] # (Auto) (0.30-0.82) K/mm3 Eos # (Auto) (0.04-0.54) K/mm3 Baso # (Auto) (0.01-0.08) K/mm3 Manual Slide Review Puncture Site ABG pH (7.35-7.45) ABG pCO2 (35.0-45.0) mmHg ABG pO2 (80.0-100.0) mmHg ABG HCO3 (22.0-26.0) meq/L ABG O2 Saturation (96.0-97.0) % ABG Base Excess (-2-2.0) Kaz Test A-a Gradient mmHg Sodium (136-145) mEq/L Potassium (3.5-5.1) mEq/L Chloride (98-107) mEq/L Carbon Dioxide (21-32) mEq/L Anion Gap (5-15) BUN (7-18) mg/dL Creatinine (0.7-1.3) mg/dL Est Cr Clr Drug Dosing mL/min Estimated GFR (MDRD) (>60) mL/min BUN/Creatinine Ratio (14-18) Glucose 630 H* 477 H (83-115) mg/dL Lactic Acid 2.3 H (0.4-2.0) mmol/L Calcium (8.5-10.1) mg/dL Total Bilirubin (0.2-1.0) mg/dL AST (15-37) U/L ALT (16-63) U/L Alkaline Phosphatase (46-116) U/L Troponin I (0.00-0.056) ng/mL C-Reactive Protein (<1.0) mg/dL NT-Pro-B Natriuret Pep (0-125) pg/mL Total Protein (6.4-8.2) g/dl Albumin (3.4-5.0) g/dl Globulin gm/dL Albumin/Globulin Ratio (1-2) Mycoplasma pneumon IgM (NEGATIVE) 03/20/18 03/20/18 Range/Units 16:48 17:45 WBC (4.23-9.07) K/mm3 RBC (4.63-6.08) M/mm3 Hgb (13.7-17.5) gm/L Hct (40.1-51.0) % MCV (79.0-92.2) fl MCH (25.7-32.2) pg MCHC (32.2-35.5) g/dl RDW Std Deviation (35.1-43.9) fL Plt Count (163-337) K/mm3 MPV (9.4-12.3) fl Neut % (Auto) (34.0-67.9) % Lymph % (Auto) (21.8-53.1) % [place] % (Auto) (5.3-12.2) % Eos % (Auto) (0.8-7.0) Baso % (Auto) (0.1-1.2) % Neut # (Auto) (1.78-5.38) K/mm3 Lymph # (Auto) (1.32-3.57) K/mm3 [place] # (Auto) (0.30-0.82) K/mm3 Eos # (Auto) (0.04-0.54) K/mm3 Baso # (Auto) (0.01-0.08) K/mm3 Manual Slide Review Puncture Site ABG pH (7.35-7.45) ABG pCO2 (35.0-45.0) mmHg ABG pO2 (80.0-100.0) mmHg ABG HCO3 (22.0-26.0) meq/L ABG O2 Saturation (96.0-97.0) % ABG Base Excess (-2-2.0) Kaz Test A-a Gradient mmHg Sodium (136-145) mEq/L Potassium (3.5-5.1) mEq/L Chloride (98-107) mEq/L Carbon Dioxide (21-32) mEq/L Anion Gap (5-15) BUN (7-18) mg/dL Creatinine (0.7-1.3) mg/dL Est Cr Clr Drug Dosing mL/min Estimated GFR (MDRD) (>60) mL/min BUN/Creatinine Ratio (14-18) Glucose 381 H (83-115) mg/dL Lactic Acid (0.4-2.0) mmol/L Calcium (8.5-10.1) mg/dL Total Bilirubin (0.2-1.0) mg/dL AST (15-37) U/L ALT (16-63) U/L Alkaline Phosphatase (46-116) U/L Troponin I 0.174 H* (0.00-0.056) ng/mL C-Reactive Protein (<1.0) mg/dL NT-Pro-B Natriuret Pep (0-125) pg/mL Total Protein (6.4-8.2) g/dl Albumin (3.4-5.0) g/dl Globulin gm/dL Albumin/Globulin Ratio (1-2) Mycoplasma pneumon IgM (NEGATIVE) Meds: Medications Generic Name Dose Route Start Last Admin Trade Name Freq PRN Reason Stop Dose Admin Acetaminophen 650 mg 03/20/18 19:13 Tylenol PO Q4H PRN Pain (Mild 1-3)/fever Hydrocodone Bitart/Acetaminophen 1 tab 03/20/18 19:13 03/21/18 20:38 Hadley 325-5 Mg PO 1 tab Q4H PRN Administration Pain (moderate 4-6) Albuterol 2.5 mg 03/20/18 19:13 Proventil Neb Soln NEB Q2H PRN Shortness Of Breath/wheezing Albuterol 0 gm 03/21/18 10:05 03/21/18 18:19 Proventil Hfa INH 2 puff Q4H PRN Administration Wheezing Albuterol/Ipratropium 3 ml 03/20/18 19:13 Duoneb 3.0-0.5 Mg/3 Ml NEB Q4H PRN Shortness Of Breath/wheezing Allopurinol 150 mg 03/22/18 09:00 03/22/18 08:11 Zyloprim PO 150 mg DAILY [facility] Administration Bisacodyl 5 mg 03/20/18 19:13 Dulcolax PO DAILY PRN Constipation Clopidogrel Bisulfate 75 mg 03/22/18 09:00 03/22/18 08:10 Plavix PO 75 mg DAILY [facility] Administration Dextrose/Water 50 ml 03/20/18 18:42 Dextrose 50% In Water IVPUSH ASDIRECTED PRN Hypoglycemia Diltiazem HCl 240 mg 03/21/18 10:15 03/22/18 08:11 Dilacor Xr PO 240 mg DAILY [facility] Administration Docusate Sodium 100 mg 03/20/18 19:13 Colace PO BID PRN Constipation Enoxaparin Sodium 80 mg 03/22/18 09:00 03/22/18 08:09 Lovenox SUBCUT 80 mg DAILY [facility] Administration Famotidine 20 mg 03/22/18 09:00 03/22/18 08:10 Pepcid PO 20 mg DAILY [facility] Administration Doxycycline Hyclate 100 mg/ 100 mls @ 100 mls/hr 03/21/18 21:00 03/22/18 08: 35 Sodium Chloride IV 100 mls/hr Q12HR [facility] Administration Insulin Human Lispro 0 unit 03/22/18 11:33 03/22/18 11:34 Humalog SUBCUT 9 units QIDACANDBED [facility] Administration Protocol Magnesium Hydroxide 30 ml 03/20/18 19:13 Milk Of Magnesia PO Q12H PRN Constipation Metoprolol Tartrate 50 mg 03/21/18 21:00 03/22/18 08:10 Lopressor PO 50 mg Q12H [facility] Administration Nitroglycerin 0.4 mg 03/21/18 10:03 Nitrostat SL ASDIRECTED PRN Chest Pain Ondansetron HCl 4 mg 03/20/18 19:13 Zofran Odt PO Q4H PRN nausea, able to take PO Ondansetron HCl 4 mg 03/20/18 19:13 Zofran IV Q4H PRN Nausea/Vomiting Polyethylene Glycol 17 gm 03/20/18 19:13 Miralax PO DAILY PRN Constipation Senna/Docusate Sodium 1 tab 03/20/18 19:13 Senna Plus PO BID PRN Constipation Sertraline HCl 50 mg 03/21/18 21:00 03/21/18 20:40 Zoloft PO 50 mg BEDTIME [facility] Administration Sodium Chloride 10 ml 03/20/18 13:21 03/20/18 14:04 Saline Flush FLUSH 10 ml ASDIRECTED PRN Administration Keep Vein Open Tamsulosin HCl 0.4 mg 03/21/18 21:00 03/22/18 08:11 Flomax PO 0.4 mg BID [facility] Administration Temazepam 7.5 mg 03/20/18 19:13 03/21/18 20:40 Restoril PO 7.5 mg BEDTIME PRN Administration Sleep Discontinued Medications Generic Name Dose Route Start Last Admin Trade Name Dutch PRN Reason Stop Dose Admin Albuterol/Ipratropium 3 ml 03/20/18 13:29 03/20/18 14:11 Duoneb 3.0-0.5 Mg/3 Ml NEB 03/20/18 13:30 3 ml ONETIME ONE Administration Enoxaparin Sodium 30 mg 03/21/18 09:00 03/21/18 08:21 Lovenox SUBCUT 30 mg DAILY [facility] Administration Enoxaparin Sodium 50 mg 03/21/18 10:30 03/21/18 11:51 Lovenox SUBCUT 03/21/18 10:31 50 mg ONETIME ONE Administration Famotidine 20 mg 03/21/18 09:00 03/21/18 20:40 Pepcid PO Not Given BID [facility] Furosemide 20 mg 03/20/18 13:29 03/20/18 14:04 Lasix IVPUSH 03/20/18 13:30 20 mg NOW ONE Administration Furosemide 20 mg 03/22/18 10:35 03/22/18 10:38 Lasix IVPUSH 03/22/18 10:36 20 mg NOW ONE Administration Sodium Chloride 1,000 mls @ 999 mls/hr 03/20/18 14:30 03/20/18 14:43 Normal Saline IV 999 mls/hr ONETIME [facility] Administration Sodium Chloride 1,000 mls @ 999 mls/hr 03/20/18 15:51 03/20/18 15:57 Normal Saline IV 03/20/18 16:51 999 mls/hr ONETIME ONE Administration Insulin Human Regular 100 unit 100 mls @ 0.5 mls/hr 03/20/18 17:00 03/20/18 19:05 / Sodium Chloride IV 6 units/hr TITRATE [facility] 6 mls/hr Titration Protocol 0.5 UNITS/HR Sodium Chloride Confirm 03/20/18 17:03 03/20/18 17:25 Normal Saline Administered 03/20/18 17:04 Not Given Dose 100 mls @ as directed .ROUTE .STK-MED ONE Sodium Chloride 1,000 mls @ 999 mls/hr 03/20/18 17:22 03/20/18 17:39 Normal Saline IV 03/20/18 18:22 999 mls/hr ONETIME ONE Administration Sodium Chloride 1,000 mls @ 100 mls/hr 03/20/18 18:45 03/21/18 06:45 Normal Saline IV 100 mls/hr ASDIRECTED [facility] Administration Magnesium Sulfate 2 gm/ Premix 50 mls @ 25 mls/hr 03/21/18 10:15 03/21/18 11: 52 IV 03/21/18 12:14 25 mls/hr ONETIME ONE Administration Insulin Human Lispro 0 unit 03/20/18 22:00 03/22/18 11:38 Humalog SUBCUT Not Given QIDACANDBED [facility] Protocol Insulin Human Lispro 0 unit 03/22/18 11:30 03/22/18 11:38 Humalog SUBCUT Not Given QIDACANDBED [facility] Protocol Insulin Human Regular 5 unit 03/20/18 14:17 03/20/18 14:45 Humulin R IVPUSH 03/20/18 14:18 5 units ONETIME ONE Administration Protocol Insulin Human Regular 5 unit 03/20/18 16:12 03/20/18 16:17 Humulin R IVPUSH 03/20/18 16:13 5 units ONETIME ONE Administration Protocol Metoprolol Succinate 50 mg 03/22/18 09:00 Toprol Xl PO DAILY [facility] Morphine Sulfate 2 mg 03/20/18 19:13 Morphine IVPUSH 03/21/18 19:14 Q2H PRN Pain (severe 7-10) - Re-Assessments/Exams Free Text/Narrative Re-Assessment/Exam: 03/20/18 14:25 Blood sugar has come back quite elevated at 663, chest x-ray is normal, no evidence for failure whatsoever. Have ordered insulin 5 units IV. Have ordered IV normal saline wide open. Will check ABGs. 16:05 repeat glucose came back at around 630 after IV insulin, over 1 liter over fluid, 2nd liter infusing. He is not a candidate to go home, has renal insufficiency, dehydration, failing to take care of himself, does not express any interest or concern about not checking blood sugars, managing his diabetes. Will admit for further treatment. Departure - Departure Time of Disposition: 17:20 Disposition: Admitted As Inpatient 65 Condition: Serious Clinical Impression: Hyperglycemia, Dehydration, Renal insufficiency - Discharge Information ED Communication - Discussed Case With (1) Discussed Case With (1): Admitting Provider (Dr Zarco, decison to admit at about 17:30)
[2018-03-20] MEDS ORDERED: Sodium Chloride 0.9% 1,000 ML IV SCH (14:30)
[2018-03-20] MEDS ORDERED: Sodium Chloride 0.9% 1,000 ML IV ONE ×2 (15:51→17:22)
[2018-03-20] MEDS ORDERED: Sodium Chloride 0.9% 100 ML ONE (17:03)
[2018-03-20] MEDS ORDERED: 50% Dextrose in Water 50 ML Syringe IVPUSH PRN (18:42)
[2018-03-20] MEDS ORDERED: Ondansetron 4 MG Tab.DIS PO PRN (19:13)
[2018-03-20] MEDS ORDERED: Acetaminophen/HYDROcodone 325-5 MG Tab PO PRN (19:13)
[2018-03-20] MEDS ORDERED: Acetaminophen 325 MG Tab PO PRN (19:13)
[2018-03-20] MEDS ORDERED: Bisacodyl 5 MG Tab PO PRN (19:13)
[2018-03-20] MEDS ORDERED: Morphine 2 MG/ML Syringe IVPUSH PRN (19:13)
[2018-03-20] MEDS ORDERED: Docusate Sodium 100 MG Cap PO PRN (19:13)
[2018-03-20] MEDS ORDERED: Albuterol/Ipratropium 3.0-0.5 MG/3 ML Neb Soln NEB PRN (19:13)
[2018-03-20] MEDS ORDERED: Albuterol 0.083% 2.5 MG/3 ML Neb Soln NEB PRN (19:13)
[2018-03-20] MEDS ORDERED: Polyethylene Glycol 3350 Powder 17 GM Packet PO PRN (19:13)
[2018-03-20] MEDS ORDERED: Ondansetron 4 MG/2 ML SDV IV PRN (19:13)
[2018-03-20] MEDS ORDERED: Magnesium Hydroxide 400 MG/5 ML Susp 30 ML Cup PO PRN (19:13)
--- NOTE | 2018-03-20 19:27 | PCM.HP ---
<Shira Acevedo - Last Filed: 03/20/18 20:21> H&P History of Present Illness - General Date of Service: 03/20/18 Admit Problem/Dx: Admission Diagnosis/Problem Admission Diagnosis/Problem Hyperglycemia Source of Information: Patient, Old Records, Provider History Limitations: Reports: No Limitations - History of Present Illness Initial Comments - Free Text/Narative: This is a 73 yo male with past medical h/o HTN, HLD, CHF, Arrhythmia, COPD, CKD III, GERD, Arthritis, DM2, overweight who comes in for Dehydration, Hyperglycemia, GRETA, persistent dry cough. He was seen in walk-in clinic 3x since mid January for cough/SOB and was given numerous Abx without relief. Pt currently c/o weakness, dizziness, shortness of breath, dyspnea with exertion x 1 week. He denies F/C, Chest Pain, Abdominal Pain, N/V/D, or other GI/ complaints. No recent sick contacts. His initial workup in the ED showed a CBC remarkable for WBC 13.46, Neut 83.2%, Lymph 9.1%, Eos 0.4%. His chemistry is remarkable for Na 130, Cl 96, AGap 17.9, BUN 49, Cr 2.7, GFR 23, Glu 630, Lactic Acid 2.3, Troponin 0.182, BNP 336. Mycoplasma negative. CXR pending formal read, but per ED nothing acute seen. EKG shows sinus tach, borderline Q waves inferior and anterior leads, left anterior fascicular block, no ST elevation. He is subsequently admitted to the medical floor. He is a Full Code. PCP is Dr. Chano Holguin. Back Pain Score (Numeric/FACES): 6 - Related Data Allergies/Adverse Reactions: Allergies Allergy/AdvReac Type Severity Reaction Status Date / Time No Known Allergies Allergy Verified 03/20/18 13:07 Home Medications: Home Meds Albuterol Sulfate [Proair Hfa] 2 puff IH Q4H PRN 12/09/16 [History] Allopurinol [Zyloprim] 150 mg PO DAILY 12/09/16 [History] Clopidogrel [Plavix] 75 mg PO DAILY 12/09/16 [History] Diltiazem HCl [Cartia Xt] 240 mg PO DAILY 12/09/16 [History] Hydrochlorothiazide 25 mg PO DAILY 12/09/16 [History] Insulin Glarg,Human.Rec.Analog [LantUS Solostar] 32 units SUBCUT BEDTIME [History] LORazepam [Ativan] 1 mg PO BEDTIME PRN 12/09/16 [History] Sertraline HCl [Zoloft] 50 mg PO BEDTIME 12/09/16 [History] Tamsulosin [Flomax] 0.4 mg PO BID 12/09/16 [History] metFORMIN HCl [Glucophage] 1,500 mg PO DAILY 12/09/16 [History] Metoprolol Succinate 50 mg PO DAILY 07/10/17 [History] Nitroglycerin 0.4 mg PO ASDIRECTED PRN 07/10/17 [History] Indomethacin 25 mg PO TID 03/20/18 [History] Past Medical History HEENT History: Reports: Impaired Vision, Otitis Media Cardiovascular History: Reports: Arrhythmia, High Cholesterol, Hypertension Respiratory History: Reports: COPD Gastrointestinal History: Reports: GERD Musculoskeletal History: Reports: Arthritis Endocrine/Metabolic History: Reports: Diabetes, Type II - Past Surgical History GI Surgical History: Reports: Colonoscopy Musculoskeletal Surgical History: Reports: Knee Replacement Other Musculoskeletal Surgeries/Procedures:: Left knee Social & Family History - Family History Family Medical History: Noncontributory - Tobacco Use Smoking Status *Q: Never Smoker Second Hand Smoke Exposure: No - Caffeine Use Caffeine Use: Reports: Coffee - Recreational Drug Use Recreational Drug Use: No H&P Review of Systems - Review of Systems: Review Of Systems: See Below General: Reports: Weakness. Denies: Fever, Chills, Decreased Appetite HEENT: Reports: Glasses Pulmonary: Reports: Shortness of Breath, Cough (chronic). Denies: Wheezing, Sputum Cardiovascular: Reports: Dyspnea on Exertion, Lightheadedness, Blood Pressure Problem. Denies: Chest Pain, Palpitations, Edema Gastrointestinal: Reports: No Symptoms. Denies: Abdominal Pain, Diarrhea, Nausea, Vomiting Genitourinary: Reports: No Symptoms Musculoskeletal: Reports: No Symptoms Skin: Reports: No Symptoms Psychiatric: Reports: No Symptoms Neurological: Reports: No Symptoms Hematologic/Lymphatic: Reports: No Symptoms Immunologic: Reports: No Symptoms Exam - Exam Exam: See Below - Vital Signs Vital Signs: Last Vital Signs Temp 99.1 F 03/20/18 18:26 Pulse 95 03/20/18 18:26 Resp 14 03/20/18 18:26 BP 148/86 H 03/20/18 18:26 Pulse Ox 99 03/20/18 18:26 Weight: 89.494 kg - Exam Quality Assessment: DVT Prophylaxis General: Alert, Oriented, Cooperative, Other (No distress) HEENT: Conjunctiva Clear, EACs Clear, EOMI, Hearing Intact, Mucosa Moist & [place] , Nares Patent, Normal Nasal Septum, Posterior Pharynx Clear, Glasses, PERRLA Neck: Supple, Trachea Midline, 2 Lungs: Clear to Auscultation, Normal Respiratory Effort Cardiovascular: Regular Rate, Regular Rhythm GI/Abdominal Exam: Normal Bowel Sounds, Soft, Non-Tender, No Organomegaly, No Distention, No Abnormal Bruit, No Mass, Pelvis Stable (Male) Exam: Deferred Rectal (Males) Exam: Deferred Back Exam: Normal Inspection Extremities: Normal Inspection, Normal Range of Motion, Non-Tender, No Pedal Edema, Normal Capillary Refill, Other (no hair LE bilaterally) Peripheral Pulses: 1+: Posterior Tibial (L), Posterior Tibial (R), Dorsalis Pedis (L), Dorsalis Pedis (R) Skin: Warm, Dry, Intact Neurological: Cranial Nerves Intact (grossly) Neuro Extensive - Mental Status: Alert, Oriented x3, Normal Mood/Affect, Memory Intact Psychiatric: Alert, Normal Affect, Normal Mood - Patient Data Lab Results Last 24 hrs: Laboratory Results - last 24 hr 03/20/18 03/20/18 03/20/18 Range/Units 13:35 13:35 13:35 WBC 13.46 H (4.23-9.07) K/mm3 RBC 5.21 (4.63-6.08) M/mm3 Hgb 15.1 (13.7-17.5) gm/L Hct 44.8 (40.1-51.0) % MCV 86.0 (79.0-92.2) fl MCH 29.0 (25.7-32.2) pg MCHC 33.7 (32.2-35.5) g/dl RDW Std Deviation 41.3 (35.1-43.9) fL Plt Count 228 (163-337) K/mm3 MPV 11.2 (9.4-12.3) fl Neut % (Auto) 83.2 H (34.0-67.9) % Lymph % (Auto) 9.1 L (21.8-53.1) % Alexander % (Auto) 5.9 (5.3-12.2) % Eos % (Auto) 0.4 L (0.8-7.0) Baso % (Auto) 0.1 (0.1-1.2) % Neut # (Auto) 11.19 H (1.78-5.38) K/mm3 Lymph # (Auto) 1.23 L (1.32-3.57) K/mm3 Alexander # (Auto) 0.80 (0.30-0.82) K/mm3 Eos # (Auto) 0.05 (0.04-0.54) K/mm3 Baso # (Auto) 0.02 (0.01-0.08) K/mm3 Manual Slide Review Abnormal smear Puncture Site ABG pH (7.35-7.45) ABG pCO2 (35.0-45.0) mmHg ABG pO2 (80.0-100.0) mmHg ABG HCO3 (22.0-26.0) meq/L ABG O2 Saturation (96.0-97.0) % ABG Base Excess (-2-2.0) Kaz Test A-a Gradient mmHg Sodium 130 L (136-145) mEq/L Potassium 4.9 (3.5-5.1) mEq/L Chloride 96 L (98-107) mEq/L Carbon Dioxide 21 (21-32) mEq/L Anion Gap 17.9 H (5-15) BUN 49 H (7-18) mg/dL Creatinine 2.7 H (0.7-1.3) mg/dL Est Cr Clr Drug Dosing 24.78 mL/min Estimated GFR (MDRD) 23 (>60) mL/min BUN/Creatinine Ratio 18.1 H (14-18) Glucose 663 H* (83-115) mg/dL POC Glucose (83-110) mg/dL Lactic Acid (0.4-2.0) mmol/L Calcium 8.9 (8.5-10.1) mg/dL Total Bilirubin 0.8 (0.2-1.0) mg/dL AST 27 (15-37) U/L ALT 42 (16-63) U/L Alkaline Phosphatase 59 (46-116) U/L Troponin I 0.182 H* (0.00-0.056) ng/mL NT-Pro-B Natriuret Pep 336 H (0-125) pg/mL Total Protein 6.7 (6.4-8.2) g/dl Albumin 3.6 (3.4-5.0) g/dl Globulin 3.1 gm/dL Albumin/Globulin Ratio 1.2 (1-2) Mycoplasma pneumon IgM (NEGATIVE) 03/20/18 03/20/18 03/20/18 Range/Units 13:35 14:20 15:30 WBC (4.23-9.07) K/mm3 RBC (4.63-6.08) M/mm3 Hgb (13.7-17.5) gm/L Hct (40.1-51.0) % MCV (79.0-92.2) fl MCH (25.7-32.2) pg MCHC (32.2-35.5) g/dl RDW Std Deviation (35.1-43.9) fL Plt Count (163-337) K/mm3 MPV (9.4-12.3) fl Neut % (Auto) (34.0-67.9) % Lymph % (Auto) (21.8-53.1) % Alexander % (Auto) (5.3-12.2) % Eos % (Auto) (0.8-7.0) Baso % (Auto) (0.1-1.2) % Neut # (Auto) (1.78-5.38) K/mm3 Lymph # (Auto) (1.32-3.57) K/mm3 Alexander # (Auto) (0.30-0.82) K/mm3 Eos # (Auto) (0.04-0.54) K/mm3 Baso # (Auto) (0.01-0.08) K/mm3 Manual Slide Review Puncture Site Rt radial ABG pH 7.40 (7.35-7.45) ABG pCO2 31.8 L (35.0-45.0) mmHg ABG pO2 61.0 L (80.0-100.0) mmHg ABG HCO3 19.4 L (22.0-26.0) meq/L ABG O2 Saturation 89.2 L (96.0-97.0) % ABG Base Excess -3.8 L (-2-2.0) Kaz Test Positive A-a Gradient 33 mmHg Sodium (136-145) mEq/L Potassium (3.5-5.1) mEq/L Chloride (98-107) mEq/L Carbon Dioxide (21-32) mEq/L Anion Gap (5-15) BUN (7-18) mg/dL Creatinine (0.7-1.3) mg/dL Est Cr Clr Drug Dosing mL/min Estimated GFR (MDRD) (>60) mL/min BUN/Creatinine Ratio (14-18) Glucose (83-115) mg/dL POC Glucose (83-110) mg/dL Lactic Acid 2.3 H (0.4-2.0) mmol/L Calcium (8.5-10.1) mg/dL Total Bilirubin (0.2-1.0) mg/dL AST (15-37) U/L ALT (16-63) U/L Alkaline Phosphatase (46-116) U/L Troponin I (0.00-0.056) ng/mL NT-Pro-B Natriuret Pep (0-125) pg/mL Total Protein (6.4-8.2) g/dl Albumin (3.4-5.0) g/dl Globulin gm/dL Albumin/Globulin Ratio (1-2) Mycoplasma pneumon IgM Negative (NEGATIVE) 03/20/18 03/20/18 03/20/18 Range/Units 15:30 16:48 16:48 WBC (4.23-9.07) K/mm3 RBC (4.63-6.08) M/mm3 Hgb (13.7-17.5) gm/L Hct (40.1-51.0) % MCV (79.0-92.2) fl MCH (25.7-32.2) pg MCHC (32.2-35.5) g/dl RDW Std Deviation (35.1-43.9) fL Plt Count (163-337) K/mm3 MPV (9.4-12.3) fl Neut % (Auto) (34.0-67.9) % Lymph % (Auto) (21.8-53.1) % Alexander % (Auto) (5.3-12.2) % Eos % (Auto) (0.8-7.0) Baso % (Auto) (0.1-1.2) % Neut # (Auto) (1.78-5.38) K/mm3 Lymph # (Auto) (1.32-3.57) K/mm3 Alexander # (Auto) (0.30-0.82) K/mm3 Eos # (Auto) (0.04-0.54) K/mm3 Baso # (Auto) (0.01-0.08) K/mm3 Manual Slide Review Puncture Site ABG pH (7.35-7.45) ABG pCO2 (35.0-45.0) mmHg ABG pO2 (80.0-100.0) mmHg ABG HCO3 (22.0-26.0) meq/L ABG O2 Saturation (96.0-97.0) % ABG Base Excess (-2-2.0) Kaz Test A-a Gradient mmHg Sodium (136-145) mEq/L Potassium (3.5-5.1) mEq/L Chloride (98-107) mEq/L Carbon Dioxide (21-32) mEq/L Anion Gap (5-15) BUN (7-18) mg/dL Creatinine (0.7-1.3) mg/dL Est Cr Clr Drug Dosing mL/min Estimated GFR (MDRD) (>60) mL/min BUN/Creatinine Ratio (14-18) Glucose 630 H* 477 H (83-115) mg/dL POC Glucose (83-110) mg/dL Lactic Acid (0.4-2.0) mmol/L Calcium (8.5-10.1) mg/dL Total Bilirubin (0.2-1.0) mg/dL AST (15-37) U/L ALT (16-63) U/L Alkaline Phosphatase (46-116) U/L Troponin I 0.174 H* (0.00-0.056) ng/mL NT-Pro-B Natriuret Pep (0-125) pg/mL Total Protein (6.4-8.2) g/dl Albumin (3.4-5.0) g/dl Globulin gm/dL Albumin/Globulin Ratio (1-2) Mycoplasma pneumon IgM (NEGATIVE) 03/20/18 03/20/18 Range/Units 17:45 18:57 WBC (4.23-9.07) K/mm3 RBC (4.63-6.08) M/mm3 Hgb (13.7-17.5) gm/L Hct (40.1-51.0) % MCV (79.0-92.2) fl MCH (25.7-32.2) pg MCHC (32.2-35.5) g/dl RDW Std Deviation (35.1-43.9) fL Plt Count (163-337) K/mm3 MPV (9.4-12.3) fl Neut % (Auto) (34.0-67.9) % Lymph % (Auto) (21.8-53.1) % Alexander % (Auto) (5.3-12.2) % Eos % (Auto) (0.8-7.0) Baso % (Auto) (0.1-1.2) % Neut # (Auto) (1.78-5.38) K/mm3 Lymph # (Auto) (1.32-3.57) K/mm3 Alexander # (Auto) (0.30-0.82) K/mm3 Eos # (Auto) (0.04-0.54) K/mm3 Baso # (Auto) (0.01-0.08) K/mm3 Manual Slide Review Puncture Site ABG pH (7.35-7.45) ABG pCO2 (35.0-45.0) mmHg ABG pO2 (80.0-100.0) mmHg ABG HCO3 (22.0-26.0) meq/L ABG O2 Saturation (96.0-97.0) % ABG Base Excess (-2-2.0) Kaz Test A-a Gradient mmHg Sodium (136-145) mEq/L Potassium (3.5-5.1) mEq/L Chloride (98-107) mEq/L Carbon Dioxide (21-32) mEq/L Anion Gap (5-15) BUN (7-18) mg/dL Creatinine (0.7-1.3) mg/dL Est Cr Clr Drug Dosing mL/min Estimated GFR (MDRD) (>60) mL/min BUN/Creatinine Ratio (14-18) Glucose 381 H (83-115) mg/dL POC Glucose 296 H (83-110) mg/dL Lactic Acid (0.4-2.0) mmol/L Calcium (8.5-10.1) mg/dL Total Bilirubin (0.2-1.0) mg/dL AST (15-37) U/L ALT (16-63) U/L Alkaline Phosphatase (46-116) U/L Troponin I (0.00-0.056) ng/mL NT-Pro-B Natriuret Pep (0-125) pg/mL Total Protein (6.4-8.2) g/dl Albumin (3.4-5.0) g/dl Globulin gm/dL Albumin/Globulin Ratio (1-2) Mycoplasma pneumon IgM (NEGATIVE) Result Diagrams: 03/20/18 13:35 03/20/18 13:35 - Problem List (1) GRETA (acute kidney injury) SNOMED Code(s): 24030761 ICD Code: N17.9 - ACUTE KIDNEY FAILURE, UNSPECIFIED Status: Acute Priority: High Current Visit: Yes (2) SOB (shortness of breath) SNOMED Code(s): 400849836 ICD Code: R06.02 - SHORTNESS OF BREATH Status: Acute Priority: High Current Visit: Yes (3) Dehydration SNOMED Code(s): 05640179 ICD Code: E86.0 - DEHYDRATION Status: Acute Priority: High Current Visit: Yes (4) Hyperglycemia SNOMED Code(s): 12303448 ICD Code: R73.9 - HYPERGLYCEMIA, UNSPECIFIED Status: Acute Priority: High Current Visit: Yes (5) Elevated troponin SNOMED Code(s): 119403737, 862245050, 160355665 ICD Code: R74.8 - ABNORMAL LEVELS OF OTHER SERUM ENZYMES Status: Acute Priority: High Current Visit: Yes Problem List Initiated/Reviewed/Updated: Yes Orders Last 24hrs: Active Orders 24 hr Category Date Time Status Patient Status [ADT] Routine ADT 03/20/18 17:54 Active Blood Glucose Check, Bedside [] QIDACANDBED Care 03/20/18 18:41 Active EKG 12 Lead [EKG Documentation Completion] [RC] STAT Care 03/20/18 13:21 Active Height and Weight [RC] DAILY Care 03/20/18 19:13 Ordered Intake and Output [RC] QSHIFT Care 03/20/18 19:13 Ordered May Shower [RC] ASDIRECTED Care 03/20/18 19:13 Ordered Oxygen Therapy [RC] PRN Care 03/20/18 19:13 Ordered Peripheral IV Care [RC] . DIRECTED Care 03/20/18 13:22 Active RT Aerosol Therapy [RC] ASDIRECTED Care 03/20/18 13:30 Active RT Aerosol Therapy [RC] ASDIRECTED Care 03/20/18 19:15 Ordered RT Incentive Spirometry [RC] ASDIRECTED Care 03/20/18 18:52 Active Up ad Kadie [RC] ASDIRECTED Care 03/20/18 19:13 Ordered VTE/DVT Education [RC] PER UNIT ROUTINE Care 03/20/18 19:13 Ordered Vital Signs [RC] Q6H Care 03/20/18 19:13 Ordered Consult to Diabetic Nurse Specialist [CONS] Routine Cons 03/20/18 19:13 Ordered Respiratory Care Assess and Treatment [CONS] Routine Cons 03/20/18 19:13 Ordered Clear Liquid Diet [DIET] Diet 03/21/18 Breakfast Ordered Nothing per Oral Now Diet [DIET] Diet 03/20/18 Dinner Ordered CTA Chest W WO Contrast [Ang Chest] [CT] Routine Exams 03/23/18 09:00 Stop Req Chest 1V Frontal [CR] Stat Exams 03/20/18 13:21 Taken Chest wo Cont [CT] Routine Exams 03/23/18 08:00 Stop Req Chest wo Cont [CT] Routine Exams 03/23/18 09:00 Ordered Echo Comp wo Cont [US] Routine Exams 03/23/18 08:00 Ordered BASIC METABOLIC PANEL,BMP [CHEM] AM Lab 03/21/18 05:11 Ordered BASIC METABOLIC PANEL,BMP [CHEM] AM Lab 03/22/18 05:11 Ordered BASIC METABOLIC PANEL,BMP [CHEM] AM Lab 03/23/18 05:11 Ordered BASIC METABOLIC PANEL,BMP [CHEM] AM Lab 03/24/18 05:11 Ordered BASIC METABOLIC PANEL,BMP [CHEM] AM Lab 03/25/18 05:11 Ordered C-REACTIVE PROTEIN [CHEM] AM Lab 03/21/18 05:11 Ordered C-REACTIVE PROTEIN [CHEM] AM Lab 03/22/18 05:11 Ordered C-REACTIVE PROTEIN [CHEM] AM Lab 03/23/18 05:11 Ordered C-REACTIVE PROTEIN [CHEM] AM Lab 03/24/18 05:11 Ordered C-REACTIVE PROTEIN [CHEM] AM Lab 03/25/18 05:11 Ordered CBC WITH AUTO DIFF [HEME] AM Lab 03/21/18 05:11 Ordered CBC WITH AUTO DIFF [HEME] AM Lab 03/22/18 05:11 Ordered CBC WITH AUTO DIFF [HEME] AM Lab 03/23/18 05:11 Ordered CBC WITH AUTO DIFF [HEME] AM Lab 03/24/18 05:11 Ordered CBC WITH AUTO DIFF [HEME] AM Lab 03/25/18 05:11 Ordered CRP [C-REACTIVE PROTEIN] [CHEM] Routine Lab 03/20/18 13:35 Received INFLUENZA A+B AG SCREEN [RM] Stat Lab 03/20/18 17:43 Ordered LIPID PANEL [CHEM] AM Lab 03/21/18 05:11 Ordered MAGNESIUM [CHEM] AM Lab 03/21/18 05:11 Ordered MAGNESIUM [CHEM] AM Lab 03/22/18 05:11 Ordered MAGNESIUM [CHEM] AM Lab 03/23/18 05:11 Ordered MAGNESIUM [CHEM] AM Lab 03/24/18 05:11 Ordered MAGNESIUM [CHEM] AM Lab 03/25/18 05:11 Ordered MICROALBUMIN,URINE RANDOM [URCHEM] Routine Lab 03/20/18 19:17 Ordered RESPIRATORY PANEL Routine Lab 03/20/18 18:52 Ordered STREP PNEUMONIAE ANTIGEN [MREF] Routine Lab 03/20/18 18:52 Ordered TROPONIN I [CHEM] AM Lab 03/21/18 05:11 Ordered TROPONIN I [CHEM] AM Lab 03/22/18 05:11 Ordered TROPONIN I [CHEM] AM Lab 03/23/18 05:11 Ordered UA W/MICROSCOPIC [URIN] Routine Lab 03/20/18 18:51 Ordered Acetaminophen [Tylenol] Med 03/20/18 19:13 Ordered 650 mg PO Q4H PRN Acetaminophen/HYDROcodone [[place] 325-5 MG] Med 03/20/18 19:13 Ordered 1 tab PO Q4H PRN Albuterol [Proventil Neb Soln] Med 03/20/18 19:13 Ordered 2.5 mg NEB Q2H PRN Albuterol/Ipratropium [DuoNeb 3.0-0.5 MG/3 ML] Med 03/20/18 19:13 Ordered 3 ml NEB Q4H PRN Bisacodyl [Dulcolax] Med 03/20/18 19:13 Ordered 5 mg PO DAILY PRN Dextrose 50% in Water Med 03/20/18 18:42 Active 50 ml IVPUSH ASDIRECTED PRN Docusate Sodium [Colace] Med 03/20/18 19:13 Ordered 100 mg PO BID PRN Docusate Sodium/Sennosides [Senna Plus] Med 03/20/18 19:13 Ordered 1 tab PO BID PRN Enoxaparin [Lovenox] Med 03/21/18 09:00 Ordered 30 mg SUBCUT DAILY Famotidine [Pepcid] Med 03/21/18 09:00 Ordered 20 mg PO BID Insulin Lispro [HumaLOG] Med 03/20/18 22:00 Active See Protocol SUBCUT QIDACANDBED Insulin Regular, Human [HumuLIN R] 100 unit Med 03/20/18 17:00 Active Sodium Chloride 0.9% [Normal Saline] 99 ml IV TITRATE Magnesium Hydroxide [Milk of Magnesia] Med 03/20/18 19:13 Ordered 30 ml PO Q12H PRN Morphine Med 03/20/18 19:13 Ordered 2 mg IVPUSH Q2H PRN Ondansetron [Zofran ODT] Med 03/20/18 19:13 Ordered 4 mg PO Q4H PRN Ondansetron [Zofran] Med 03/20/18 19:13 Ordered 4 mg IV Q4H PRN Polyethylene Glycol 3350 [MiraLAX] Med 03/20/18 19:13 Ordered 17 gm PO DAILY PRN Sodium Chloride 0.9% [Normal Saline] 1,000 ml Med 03/20/18 18:45 Active IV ASDIRECTED Sodium Chloride 0.9% [Normal Saline] 1,000 ml Med 03/20/18 14:30 Active IV ONETIME Sodium Chloride 0.9% [Saline Flush] Med 03/20/18 13:21 Active 10 ml FLUSH ASDIRECTED PRN Temazepam [Restoril] Med 03/20/18 19:13 Ordered 7.5 mg PO BEDTIME PRN Peripheral IV Insertion Adult [OM.PC] Stat Oth 03/20/18 13:22 Ordered RT Acapella [RESPCARE] Routine Oth 03/20/18 18:52 Active Resuscitation Status Routine Resus Stat 03/20/18 19:13 Ordered Medication Orders Acetaminophen (Tylenol) 650 mg PO Q4H PRN PRN Reason: Pain (Mild 1-3)/fever Hydrocodone Bitart/Acetaminophen ([place] 325-5 Mg) 1 tab PO Q4H PRN PRN Reason: Pain (moderate 4-6) Albuterol (Proventil Neb Soln) 2.5 mg NEB Q2H PRN PRN Reason: Shortness Of Breath/wheezing Albuterol/Ipratropium (Duoneb 3.0-0.5 Mg/3 Ml) 3 ml NEB Q4H PRN PRN Reason: Shortness Of Breath/wheezing Bisacodyl (Dulcolax) 5 mg PO DAILY PRN PRN Reason: Constipation Dextrose/Water (Dextrose 50% In Water) 50 ml IVPUSH ASDIRECTED PRN PRN Reason: Hypoglycemia Docusate Sodium (Colace) 100 mg PO BID PRN PRN Reason: Constipation Enoxaparin Sodium (Lovenox) 30 mg SUBCUT DAILY SRAVANI Sodium Chloride (Normal Saline) 1,000 mls @ 999 mls/hr IV ONETIME SRAVANI Last Admin: 03/20/18 14:43 Dose: 999 mls/hr Insulin Human Regular 100 unit (/ Sodium Chloride) 100 mls @ 0.5 mls/hr IV TITRATE SRAVANI; Protocol Last Titration: 03/20/18 19:05 Dose: 6 units/hr, 6 mls/hr Admin: 03/20/18 17:16 Dose: 0.5 units/hr, 0.5 mls/hr Sodium Chloride (Normal Saline) 1,000 mls @ 100 mls/hr IV ASDIRECTED SRAVANI Insulin Human Lispro (Humalog) 0 unit SUBCUT QIDACANDBED [facility]; Protocol Magnesium Hydroxide (Milk Of Magnesia) 30 ml PO Q12H PRN PRN Reason: Constipation Morphine Sulfate (Morphine) 2 mg IVPUSH Q2H PRN PRN Reason: Pain (severe 7-10) Stop: 03/21/18 19:14 Ondansetron HCl (Zofran Odt) 4 mg PO Q4H PRN PRN Reason: nausea, able to take PO Ondansetron HCl (Zofran) 4 mg IV Q4H PRN PRN Reason: Nausea/Vomiting Polyethylene Glycol (Miralax) 17 gm PO DAILY PRN PRN Reason: Constipation Senna/Docusate Sodium (Senna Plus) 1 tab PO BID PRN PRN Reason: Constipation Sodium Chloride (Saline Flush) 10 ml FLUSH ASDIRECTED PRN PRN Reason: Keep Vein Open Last Admin: 03/20/18 14:04 Dose: 10 ml Temazepam (Restoril) 7.5 mg PO BEDTIME PRN PRN Reason: Sleep Assessment/Plan Comment:: Assessment/Plan: Acute: SOB with persistent dry cough * Symptoms x 1 week; Was seen at walk-in clinic 3x and given numerous Abx without relief * Per SW, was reportedly given 2 Z-Paks and Amoxicillin * Risk factor: h/o COPD * No recent sick contacts * CXR in ED shows nothing acute; pending formal read * Mycoplasma negative * RVP, Strep pneumo pending * CT chest pending * RT/Duonebs/IS/Acapella Hyperglycemia * Risk factor: h/o DM2, medical non-compliance (pt states he does not check his BS at home consistently) * 630--> 381--> 296 * Insulin Sliding Scale * Blood Glucose Checks QIDACBED * Drill Doctor Dehydration * Pt unsure as to why he may be dehydrated * Anion Gap 17.9 * IVF * Monitor GRETA * Acute on Chronic (h/o CKD III) * Likely 2/2 above * GFR 23, BUN 49, Cr 2.7 * IVF * Avoid nephrotoxic drugs Elevated Troponin * Likely leak 2/2 CHF; asymptomatic * 0.182--> 0.174 * EKG in ED shows no ST elevation * Serial troponins * Lipid panel pending * ECHO 08/14/17: LVEF 45-50% * Repeat ECHO pending Chronic: HTN HLD CHF Arrhythmia COPD CKD III GERD Arthritis DM2 * Microalbumin pending Overweight * Dietary Consult * Recommend [facility] sleep study outpt Plan: Admit to Medical Floor on telemetry Respiratory droplet precautions Routine AM Labs NPO; advance to clear liquid in AM DVT/GI prophylaxis Code Status: Full; PCP: Dr. Chano Holguin <Twyla Zarco - Last Filed: 03/21/18 11:44> H&P History of Present Illness - General Admit Problem/Dx: Admission Diagnosis/Problem Admission Diagnosis/Problem Hyperglycemia Exam - Vital Signs Vital Signs: Last Vital Signs Temp 36.4 C 03/21/18 08:12 Pulse 95 03/20/18 18:26 Resp 16 03/21/18 08:12 BP 137/88 03/21/18 08:12 Pulse Ox 98 03/21/18 08:12 - Patient Data Lab Results Last 24 hrs: Laboratory Results - last 24 hr 03/20/18 03/20/18 03/20/18 Range/Units 13:35 13:35 13:35 WBC 13.46 H (4.23-9.07) K/mm3 RBC 5.21 (4.63-6.08) M/mm3 Hgb 15.1 (13.7-17.5) gm/L Hct 44.8 (40.1-51.0) % MCV 86.0 (79.0-92.2) fl MCH 29.0 (25.7-32.2) pg MCHC 33.7 (32.2-35.5) g/dl RDW Std Deviation 41.3 (35.1-43.9) fL Plt Count 228 (163-337) K/mm3 MPV 11.2 (9.4-12.3) fl Neut % (Auto) 83.2 H (34.0-67.9) % Lymph % (Auto) 9.1 L (21.8-53.1) % Alexander % (Auto) 5.9 (5.3-12.2) % Eos % (Auto) 0.4 L (0.8-7.0) Baso % (Auto) 0.1 (0.1-1.2) % Neut # (Auto) 11.19 H (1.78-5.38) K/mm3 Lymph # (Auto) 1.23 L (1.32-3.57) K/mm3 Alexander # (Auto) 0.80 (0.30-0.82) K/mm3 Eos # (Auto) 0.05 (0.04-0.54) K/mm3 Baso # (Auto) 0.02 (0.01-0.08) K/mm3 Manual Slide Review Abnormal smear Puncture Site ABG pH (7.35-7.45) ABG pCO2 (35.0-45.0) mmHg ABG pO2 (80.0-100.0) mmHg ABG HCO3 (22.0-26.0) meq/L ABG O2 Saturation (96.0-97.0) % ABG Base Excess (-2-2.0) Kaz Test A-a Gradient mmHg Sodium 130 L (136-145) mEq/L Potassium 4.9 (3.5-5.1) mEq/L Chloride 96 L (98-107) mEq/L Carbon Dioxide 21 (21-32) mEq/L Anion Gap 17.9 H (5-15) BUN 49 H (7-18) mg/dL Creatinine 2.7 H (0.7-1.3) mg/dL Est Cr Clr Drug Dosing 24.78 mL/min Estimated GFR (MDRD) 23 (>60) mL/min BUN/Creatinine Ratio 18.1 H (14-18) Glucose 663 H* (83-115) mg/dL POC Glucose (83-110) mg/dL Lactic Acid (0.4-2.0) mmol/L Calcium 8.9 (8.5-10.1) mg/dL Magnesium (1.8-2.4) mg/dl Total Bilirubin 0.8 (0.2-1.0) mg/dL AST 27 (15-37) U/L ALT 42 (16-63) U/L Alkaline Phosphatase 59 (46-116) U/L Troponin I 0.182 H* (0.00-0.056) ng/mL C-Reactive Protein 0.5 (<1.0) mg/dL NT-Pro-B Natriuret Pep (0-125) pg/mL Total Protein 6.7 (6.4-8.2) g/dl Albumin 3.6 (3.4-5.0) g/dl Globulin 3.1 gm/dL Albumin/Globulin Ratio 1.2 (1-2) Triglycerides (<150) mg/dL Cholesterol (<200) mg/dL LDL Cholesterol Direct (<100) mg/dL HDL Cholesterol (40-59) mg/dL Urine Color (Yellow) Urine Appearance (Clear) Urine pH (5.0-8.0) Ur Specific [place] (1.005-1.030) Urine Protein (Negative) Urine Glucose (UA) (Negative) Urine Ketones (Negative) Urine Occult Blood (Negative) Urine Nitrite (Negative) Urine Bilirubin (Negative) Urine Urobilinogen (0.2-1.0) Ur Leukocyte Esterase (Negative) Urine RBC (0-5) /hpf Urine WBC (0-5) /hpf Ur Epithelial Cells (0-5) /hpf Urine Bacteria (FEW) /hpf Urine Mucus (FEW) /hpf Ur Random Microalbumin (1.3-20.0) mg/L Mycoplasma pneumon IgM (NEGATIVE) 03/20/18 03/20/18 03/20/18 Range/Units 13:35 13:35 14:20 WBC (4.23-9.07) K/mm3 RBC (4.63-6.08) M/mm3 Hgb (13.7-17.5) gm/L Hct (40.1-51.0) % MCV (79.0-92.2) fl MCH (25.7-32.2) pg MCHC (32.2-35.5) g/dl RDW Std Deviation (35.1-43.9) fL Plt Count (163-337) K/mm3 MPV (9.4-12.3) fl Neut % (Auto) (34.0-67.9) % Lymph % (Auto) (21.8-53.1) % Alexander % (Auto) (5.3-12.2) % Eos % (Auto) (0.8-7.0) Baso % (Auto) (0.1-1.2) % Neut # (Auto) (1.78-5.38) K/mm3 Lymph # (Auto) (1.32-3.57) K/mm3 Alexander # (Auto) (0.30-0.82) K/mm3 Eos # (Auto) (0.04-0.54) K/mm3 Baso # (Auto) (0.01-0.08) K/mm3 Manual Slide Review Puncture Site Rt radial ABG pH 7.40 (7.35-7.45) ABG pCO2 31.8 L (35.0-45.0) mmHg ABG pO2 61.0 L (80.0-100.0) mmHg ABG HCO3 19.4 L (22.0-26.0) meq/L ABG O2 Saturation 89.2 L (96.0-97.0) % ABG Base Excess -3.8 L (-2-2.0) Kaz Test Positive A-a Gradient 33 mmHg Sodium (136-145) mEq/L Potassium (3.5-5.1) mEq/L Chloride (98-107) mEq/L Carbon Dioxide (21-32) mEq/L Anion Gap (5-15) BUN (7-18) mg/dL Creatinine (0.7-1.3) mg/dL Est Cr Clr Drug Dosing mL/min Estimated GFR (MDRD) (>60) mL/min BUN/Creatinine Ratio (14-18) Glucose (83-115) mg/dL POC Glucose (83-110) mg/dL Lactic Acid (0.4-2.0) mmol/L Calcium (8.5-10.1) mg/dL Magnesium (1.8-2.4) mg/dl Total Bilirubin (0.2-1.0) mg/dL AST (15-37) U/L ALT (16-63) U/L Alkaline Phosphatase (46-116) U/L Troponin I (0.00-0.056) ng/mL C-Reactive Protein (<1.0) mg/dL NT-Pro-B Natriuret Pep 336 H (0-125) pg/mL Total Protein (6.4-8.2) g/dl Albumin (3.4-5.0) g/dl Globulin gm/dL Albumin/Globulin Ratio (1-2) Triglycerides (<150) mg/dL Cholesterol (<200) mg/dL LDL Cholesterol Direct (<100) mg/dL HDL Cholesterol (40-59) mg/dL Urine Color (Yellow) Urine Appearance (Clear) Urine pH (5.0-8.0) Ur Specific [place] (1.005-1.030) Urine Protein (Negative) Urine Glucose (UA) (Negative) Urine Ketones (Negative) Urine Occult Blood (Negative) Urine Nitrite (Negative) Urine Bilirubin (Negative) Urine Urobilinogen (0.2-1.0) Ur Leukocyte Esterase (Negative) Urine RBC (0-5) /hpf Urine WBC (0-5) /hpf Ur Epithelial Cells (0-5) /hpf Urine Bacteria (FEW) /hpf Urine Mucus (FEW) /hpf Ur Random Microalbumin (1.3-20.0) mg/L Mycoplasma pneumon IgM Negative (NEGATIVE) 03/20/18 03/20/18 03/20/18 Range/Units 15:30 15:30 16:48 WBC (4.23-9.07) K/mm3 RBC (4.63-6.08) M/mm3 Hgb (13.7-17.5) gm/L Hct (40.1-51.0) % MCV (79.0-92.2) fl MCH (25.7-32.2) pg MCHC (32.2-35.5) g/dl RDW Std Deviation (35.1-43.9) fL Plt Count (163-337) K/mm3 MPV (9.4-12.3) fl Neut % (Auto) (34.0-67.9) % Lymph % (Auto) (21.8-53.1) % Alexander % (Auto) (5.3-12.2) % Eos % (Auto) (0.8-7.0) Baso % (Auto) (0.1-1.2) % Neut # (Auto) (1.78-5.38) K/mm3 Lymph # (Auto) (1.32-3.57) K/mm3 Alexander # (Auto) (0.30-0.82) K/mm3 Eos # (Auto) (0.04-0.54) K/mm3 Baso # (Auto) (0.01-0.08) K/mm3 Manual Slide Review Puncture Site ABG pH (7.35-7.45) ABG pCO2 (35.0-45.0) mmHg ABG pO2 (80.0-100.0) mmHg ABG HCO3 (22.0-26.0) meq/L ABG O2 Saturation (96.0-97.0) % ABG Base Excess (-2-2.0) Kaz Test A-a Gradient mmHg Sodium (136-145) mEq/L Potassium (3.5-5.1) mEq/L Chloride (98-107) mEq/L Carbon Dioxide (21-32) mEq/L Anion Gap (5-15) BUN (7-18) mg/dL Creatinine (0.7-1.3) mg/dL Est Cr Clr Drug Dosing mL/min Estimated GFR (MDRD) (>60) mL/min BUN/Creatinine Ratio (14-18) Glucose 630 H* 477 H (83-115) mg/dL POC Glucose (83-110) mg/dL Lactic Acid 2.3 H (0.4-2.0) mmol/L Calcium (8.5-10.1) mg/dL Magnesium (1.8-2.4) mg/dl Total Bilirubin (0.2-1.0) mg/dL AST (15-37) U/L ALT (16-63) U/L Alkaline Phosphatase (46-116) U/L Troponin I (0.00-0.056) ng/mL C-Reactive Protein (<1.0) mg/dL NT-Pro-B Natriuret Pep (0-125) pg/mL Total Protein (6.4-8.2) g/dl Albumin (3.4-5.0) g/dl Globulin gm/dL Albumin/Globulin Ratio (1-2) Triglycerides (<150) mg/dL Cholesterol (<200) mg/dL LDL Cholesterol Direct (<100) mg/dL HDL Cholesterol (40-59) mg/dL Urine Color (Yellow) Urine Appearance (Clear) Urine pH (5.0-8.0) Ur Specific [place] (1.005-1.030) Urine Protein (Negative) Urine Glucose (UA) (Negative) Urine Ketones (Negative) Urine Occult Blood (Negative) Urine Nitrite (Negative) Urine Bilirubin (Negative) Urine Urobilinogen (0.2-1.0) Ur Leukocyte Esterase (Negative) Urine RBC (0-5) /hpf Urine WBC (0-5) /hpf Ur Epithelial Cells (0-5) /hpf Urine Bacteria (FEW) /hpf Urine Mucus (FEW) /hpf Ur Random Microalbumin (1.3-20.0) mg/L Mycoplasma pneumon IgM (NEGATIVE) 03/20/18 03/20/18 03/20/18 Range/Units 16:48 17:45 18:57 WBC (4.23-9.07) K/mm3 RBC (4.63-6.08) M/mm3 Hgb (13.7-17.5) gm/L Hct (40.1-51.0) % MCV (79.0-92.2) fl MCH (25.7-32.2) pg MCHC (32.2-35.5) g/dl RDW Std Deviation (35.1-43.9) fL Plt Count (163-337) K/mm3 MPV (9.4-12.3) fl Neut % (Auto) (34.0-67.9) % Lymph % (Auto) (21.8-53.1) % Alexander % (Auto) (5.3-12.2) % Eos % (Auto) (0.8-7.0) Baso % (Auto) (0.1-1.2) % Neut # (Auto) (1.78-5.38) K/mm3 Lymph # (Auto) (1.32-3.57) K/mm3 Alexander # (Auto) (0.30-0.82) K/mm3 Eos # (Auto) (0.04-0.54) K/mm3 Baso # (Auto) (0.01-0.08) K/mm3 Manual Slide Review Puncture Site ABG pH (7.35-7.45) ABG pCO2 (35.0-45.0) mmHg ABG pO2 (80.0-100.0) mmHg ABG HCO3 (22.0-26.0) meq/L ABG O2 Saturation (96.0-97.0) % ABG Base Excess (-2-2.0) Kaz Test A-a Gradient mmHg Sodium (136-145) mEq/L Potassium (3.5-5.1) mEq/L Chloride (98-107) mEq/L Carbon Dioxide (21-32) mEq/L Anion Gap (5-15) BUN (7-18) mg/dL Creatinine (0.7-1.3) mg/dL Est Cr Clr Drug Dosing mL/min Estimated GFR (MDRD) (>60) mL/min BUN/Creatinine Ratio (14-18) Glucose 381 H (83-115) mg/dL POC Glucose 296 H (83-110) mg/dL Lactic Acid (0.4-2.0) mmol/L Calcium (8.5-10.1) mg/dL Magnesium (1.8-2.4) mg/dl Total Bilirubin (0.2-1.0) mg/dL AST (15-37) U/L ALT (16-63) U/L Alkaline Phosphatase (46-116) U/L Troponin I 0.174 H* (0.00-0.056) ng/mL C-Reactive Protein (<1.0) mg/dL NT-Pro-B Natriuret Pep (0-125) pg/mL Total Protein (6.4-8.2) g/dl Albumin (3.4-5.0) g/dl Globulin gm/dL Albumin/Globulin Ratio (1-2) Triglycerides (<150) mg/dL Cholesterol (<200) mg/dL LDL Cholesterol Direct (<100) mg/dL HDL Cholesterol (40-59) mg/dL Urine Color (Yellow) Urine Appearance (Clear) Urine pH (5.0-8.0) Ur Specific [place] (1.005-1.030) Urine Protein (Negative) Urine Glucose (UA) (Negative) Urine Ketones (Negative) Urine Occult Blood (Negative) Urine Nitrite (Negative) Urine Bilirubin (Negative) Urine Urobilinogen (0.2-1.0) Ur Leukocyte Esterase (Negative) Urine RBC (0-5) /hpf Urine WBC (0-5) /hpf Ur Epithelial Cells (0-5) /hpf Urine Bacteria (FEW) /hpf Urine Mucus (FEW) /hpf Ur Random Microalbumin (1.3-20.0) mg/L Mycoplasma pneumon IgM (NEGATIVE) 03/20/18 03/20/18 03/20/18 Range/Units 20:11 20:15 20:15 WBC (4.23-9.07) K/mm3 RBC (4.63-6.08) M/mm3 Hgb (13.7-17.5) gm/L Hct (40.1-51.0) % MCV (79.0-92.2) fl MCH (25.7-32.2) pg MCHC (32.2-35.5) g/dl RDW Std Deviation (35.1-43.9) fL Plt Count (163-337) K/mm3 MPV (9.4-12.3) fl Neut % (Auto) (34.0-67.9) % Lymph % (Auto) (21.8-53.1) % Alexander % (Auto) (5.3-12.2) % Eos % (Auto) (0.8-7.0) Baso % (Auto) (0.1-1.2) % Neut # (Auto) (1.78-5.38) K/mm3 Lymph # (Auto) (1.32-3.57) K/mm3 Alexander # (Auto) (0.30-0.82) K/mm3 Eos # (Auto) (0.04-0.54) K/mm3 Baso # (Auto) (0.01-0.08) K/mm3 Manual Slide Review Puncture Site ABG pH (7.35-7.45) ABG pCO2 (35.0-45.0) mmHg ABG pO2 (80.0-100.0) mmHg ABG HCO3 (22.0-26.0) meq/L ABG O2 Saturation (96.0-97.0) % ABG Base Excess (-2-2.0) Kaz Test A-a Gradient mmHg Sodium (136-145) mEq/L Potassium (3.5-5.1) mEq/L Chloride (98-107) mEq/L Carbon Dioxide (21-32) mEq/L Anion Gap (5-15) BUN (7-18) mg/dL Creatinine (0.7-1.3) mg/dL Est Cr Clr Drug Dosing mL/min Estimated GFR (MDRD) (>60) mL/min BUN/Creatinine Ratio (14-18) Glucose (83-115) mg/dL POC Glucose 196 H (83-110) mg/dL Lactic Acid (0.4-2.0) mmol/L Calcium (8.5-10.1) mg/dL Magnesium (1.8-2.4) mg/dl Total Bilirubin (0.2-1.0) mg/dL AST (15-37) U/L ALT (16-63) U/L Alkaline Phosphatase (46-116) U/L Troponin I (0.00-0.056) ng/mL C-Reactive Protein (<1.0) mg/dL NT-Pro-B Natriuret Pep (0-125) pg/mL Total Protein (6.4-8.2) g/dl Albumin (3.4-5.0) g/dl Globulin gm/dL Albumin/Globulin Ratio (1-2) Triglycerides (<150) mg/dL Cholesterol (<200) mg/dL LDL Cholesterol Direct (<100) mg/dL HDL Cholesterol (40-59) mg/dL Urine Color Light yellow (Yellow) Urine Appearance Clear (Clear) Urine pH 6.0 (5.0-8.0) Ur Specific [place] 1.020 (1.005-1.030) Urine Protein Negative (Negative) Urine Glucose (UA) 1+ H (Negative) Urine Ketones Negative (Negative) Urine Occult Blood Negative (Negative) Urine Nitrite Negative (Negative) Urine Bilirubin Negative (Negative) Urine Urobilinogen 0.2 (0.2-1.0) Ur Leukocyte Esterase Negative (Negative) Urine RBC 0-5 (0-5) /hpf Urine WBC 0-5 (0-5) /hpf Ur Epithelial Cells 0-5 (0-5) /hpf Urine Bacteria Occasional (FEW) /hpf Urine Mucus Not seen (FEW) /hpf Ur Random Microalbumin 3.7 (1.3-20.0) mg/L Mycoplasma pneumon IgM (NEGATIVE) 03/20/18 03/21/18 03/21/18 Range/Units 21:17 03:55 05:43 WBC (4.23-9.07) K/mm3 RBC (4.63-6.08) M/mm3 Hgb (13.7-17.5) gm/L Hct (40.1-51.0) % MCV (79.0-92.2) fl MCH (25.7-32.2) pg MCHC (32.2-35.5) g/dl RDW Std Deviation (35.1-43.9) fL Plt Count (163-337) K/mm3 MPV (9.4-12.3) fl Neut % (Auto) (34.0-67.9) % Lymph % (Auto) (21.8-53.1) % Alexander % (Auto) (5.3-12.2) % Eos % (Auto) (0.8-7.0) Baso % (Auto) (0.1-1.2) % Neut # (Auto) (1.78-5.38) K/mm3 Lymph # (Auto) (1.32-3.57) K/mm3 Alexander # (Auto) (0.30-0.82) K/mm3 Eos # (Auto) (0.04-0.54) K/mm3 Baso # (Auto) (0.01-0.08) K/mm3 Manual Slide Review Puncture Site ABG pH (7.35-7.45) ABG pCO2 (35.0-45.0) mmHg ABG pO2 (80.0-100.0) mmHg ABG HCO3 (22.0-26.0) meq/L ABG O2 Saturation (96.0-97.0) % ABG Base Excess (-2-2.0) Kaz Test A-a Gradient mmHg Sodium 139 (136-145) mEq/L Potassium 4.5 (3.5-5.1) mEq/L Chloride 105 (98-107) mEq/L Carbon Dioxide 26 (21-32) mEq/L Anion Gap 12.5 (5-15) BUN 35 H (7-18) mg/dL Creatinine 1.7 H (0.7-1.3) mg/dL Est Cr Clr Drug Dosing 39.36 mL/min Estimated GFR (MDRD) 40 (>60) mL/min BUN/Creatinine Ratio 20.6 H (14-18) Glucose 167 H (83-115) mg/dL POC Glucose 129 H 166 H (83-110) mg/dL Lactic Acid (0.4-2.0) mmol/L Calcium 8.4 L (8.5-10.1) mg/dL Magnesium 1.8 (1.8-2.4) mg/dl Total Bilirubin (0.2-1.0) mg/dL AST (15-37) U/L ALT (16-63) U/L Alkaline Phosphatase (46-116) U/L Troponin I 0.197 H* (0.00-0.056) ng/mL C-Reactive Protein 0.6 (<1.0) mg/dL NT-Pro-B Natriuret Pep (0-125) pg/mL Total Protein (6.4-8.2) g/dl Albumin (3.4-5.0) g/dl Globulin gm/dL Albumin/Globulin Ratio (1-2) Triglycerides 84 (<150) mg/dL Cholesterol 152 (<200) mg/dL LDL Cholesterol Direct 105 H* (<100) mg/dL HDL Cholesterol 41.0 (40-59) mg/dL Urine Color (Yellow) Urine Appearance (Clear) Urine pH (5.0-8.0) Ur Specific [place] (1.005-1.030) Urine Protein (Negative) Urine Glucose (UA) (Negative) Urine Ketones (Negative) Urine Occult Blood (Negative) Urine Nitrite (Negative) Urine Bilirubin (Negative) Urine Urobilinogen (0.2-1.0) Ur Leukocyte Esterase (Negative) Urine RBC (0-5) /hpf Urine WBC (0-5) /hpf Ur Epithelial Cells (0-5) /hpf Urine Bacteria (FEW) /hpf Urine Mucus (FEW) /hpf Ur Random Microalbumin (1.3-20.0) mg/L Mycoplasma pneumon IgM (NEGATIVE) 03/21/18 03/21/18 Range/Units 05:43 06:43 WBC 10.70 H (4.23-9.07) K/mm3 RBC 4.83 (4.63-6.08) M/mm3 Hgb 14.0 (13.7-17.5) gm/L Hct 42.3 (40.1-51.0) % MCV 87.6 (79.0-92.2) fl MCH 29.0 (25.7-32.2) pg MCHC 33.1 (32.2-35.5) g/dl RDW Std Deviation 42.9 (35.1-43.9) fL Plt Count 214 (163-337) K/mm3 MPV 10.6 (9.4-12.3) fl Neut % (Auto) 66.6 (34.0-67.9) % Lymph % (Auto) 22.1 (21.8-53.1) % Alexander % (Auto) 7.3 (5.3-12.2) % Eos % (Auto) 2.4 (0.8-7.0) Baso % (Auto) 0.1 (0.1-1.2) % Neut # (Auto) 7.13 H (1.78-5.38) K/mm3 Lymph # (Auto) 2.36 (1.32-3.57) K/mm3 Alexander # (Auto) 0.78 (0.30-0.82) K/mm3 Eos # (Auto) 0.26 (0.04-0.54) K/mm3 Baso # (Auto) 0.01 (0.01-0.08) K/mm3 Manual Slide Review Abnormal smear Puncture Site ABG pH (7.35-7.45) ABG pCO2 (35.0-45.0) mmHg ABG pO2 (80.0-100.0) mmHg ABG HCO3 (22.0-26.0) meq/L ABG O2 Saturation (96.0-97.0) % ABG Base Excess (-2-2.0) Kaz Test A-a Gradient mmHg Sodium (136-145) mEq/L Potassium (3.5-5.1) mEq/L Chloride (98-107) mEq/L Carbon Dioxide (21-32) mEq/L Anion Gap (5-15) BUN (7-18) mg/dL Creatinine (0.7-1.3) mg/dL Est Cr Clr Drug Dosing mL/min Estimated GFR (MDRD) (>60) mL/min BUN/Creatinine Ratio (14-18) Glucose (83-115) mg/dL POC Glucose 172 H (83-110) mg/dL Lactic Acid (0.4-2.0) mmol/L Calcium (8.5-10.1) mg/dL Magnesium (1.8-2.4) mg/dl Total Bilirubin (0.2-1.0) mg/dL AST (15-37) U/L ALT (16-63) U/L Alkaline Phosphatase (46-116) U/L Troponin I (0.00-0.056) ng/mL C-Reactive Protein (<1.0) mg/dL NT-Pro-B Natriuret Pep (0-125) pg/mL Total Protein (6.4-8.2) g/dl Albumin (3.4-5.0) g/dl Globulin gm/dL Albumin/Globulin Ratio (1-2) Triglycerides (<150) mg/dL Cholesterol (<200) mg/dL LDL Cholesterol Direct (<100) mg/dL HDL Cholesterol (40-59) mg/dL Urine Color (Yellow) Urine Appearance (Clear) Urine pH (5.0-8.0) Ur Specific [place] (1.005-1.030) Urine Protein (Negative) Urine Glucose (UA) (Negative) Urine Ketones (Negative) Urine Occult Blood (Negative) Urine Nitrite (Negative) Urine Bilirubin (Negative) Urine Urobilinogen (0.2-1.0) Ur Leukocyte Esterase (Negative) Urine RBC (0-5) /hpf Urine WBC (0-5) /hpf Ur Epithelial Cells (0-5) /hpf Urine Bacteria (FEW) /hpf Urine Mucus (FEW) /hpf Ur Random Microalbumin (1.3-20.0) mg/L Mycoplasma pneumon IgM (NEGATIVE) Result Diagrams: 03/21/18 05:43 03/21/18 05:43 Clif Results Last 24 hrs: Microbiology 03/20/18 20:15 Influenza Type A Antigen Screen - Final Nasopharyngeal Swab NEGATIVE INFLUENZA A VIRUS AG Influenza Type B Antigen Screen - Final NEGATIVE INFLUENZA B VIRUS AG Orders Last 24hrs: Active Orders 24 hr Category Date Time Status Patient Status [ADT] Routine ADT 03/20/18 19:47 Active Blood Glucose Check, Bedside [RC] QIDACANDBED Care 03/20/18 18:41 Active EKG 12 Lead [EKG Documentation Completion] [RC] STAT Care 03/20/18 13:21 Active Height and Weight [RC] 04 Care 03/20/18 19:13 Active Intake and Output [RC] 04,16 Care 03/20/18 19:13 Active May Shower [RC] ASDIRECTED Care 03/20/18 19:13 Active Oxygen Therapy [RC] PRN Care 03/20/18 19:13 Active Peripheral IV Care [RC] Q2HR Care 03/20/18 13:22 Active RT Aerosol Therapy [RC] ASDIRECTED Care 03/20/18 19:15 Active RT Incentive Spirometry [RC] ASDIRECTED Care 03/20/18 18:52 Active Up ad Kadie [RC] ASDIRECTED Care 03/20/18 19:13 Active VTE/DVT Education [RC] BID Care 03/20/18 19:13 Active Vital Signs [RC] 03,09,15,21 Care 03/20/18 19:13 Active Consult to Diabetic Nurse Specialist [CONS] Routine Cons 03/20/18 19:13 Active Consult to Dietary [Consult to Chief Information Officer] [CONS] Cons 03/20/18 19:52 Active Routine Respiratory Care Assess and Treatment [CONS] Routine Cons 03/20/18 19:13 Active Clear Liquid Diet [DIET] Diet 03/21/18 Breakfast Active CTA Chest W WO Contrast [Ang Chest] [CT] Routine Exams 03/23/18 09:00 Stop Req Chest 1V Frontal [CR] Stat Exams 03/20/18 13:21 Taken Chest wo Cont [CT] Routine Exams 03/23/18 08:00 Stop Req Chest wo Cont [CT] Routine Exams 03/23/18 09:00 Ordered Echo Comp wo Cont [US] Routine Exams 03/23/18 08:00 Ordered BASIC METABOLIC PANEL,BMP [CHEM] AM Lab 03/22/18 05:11 Ordered BASIC METABOLIC PANEL,BMP [CHEM] AM Lab 03/23/18 05:11 Ordered BASIC METABOLIC PANEL,BMP [CHEM] AM Lab 03/24/18 05:11 Ordered BASIC METABOLIC PANEL,BMP [CHEM] AM Lab 03/25/18 05:11 Ordered C-REACTIVE PROTEIN [CHEM] AM Lab 03/22/18 05:11 Ordered C-REACTIVE PROTEIN [CHEM] AM Lab 03/23/18 05:11 Ordered C-REACTIVE PROTEIN [CHEM] AM Lab 03/24/18 05:11 Ordered C-REACTIVE PROTEIN [CHEM] AM Lab 03/25/18 05:11 Ordered CBC WITH AUTO DIFF [HEME] AM Lab 03/22/18 05:11 Ordered CBC WITH AUTO DIFF [HEME] AM Lab 03/23/18 05:11 Ordered CBC WITH AUTO DIFF [HEME] AM Lab 03/24/18 05:11 Ordered CBC WITH AUTO DIFF [HEME] AM Lab 03/25/18 05:11 Ordered CKMB [CHEM] Routine Lab 03/21/18 15:00 Ordered MAGNESIUM [CHEM] AM Lab 03/22/18 05:11 Ordered MAGNESIUM [CHEM] AM Lab 03/23/18 05:11 Ordered MAGNESIUM [CHEM] AM Lab 03/24/18 05:11 Ordered MAGNESIUM [CHEM] AM Lab 03/25/18 05:11 Ordered RESPIRATORY PANEL Routine Lab 03/20/18 20:15 Received STREP PNEUMONIAE ANTIGEN [MREF] Routine Lab 03/20/18 20:15 Received TROPONIN I [CHEM] AM Lab 03/22/18 05:11 Ordered TROPONIN I [CHEM] AM Lab 03/23/18 05:11 Ordered TROPONIN I [CHEM] Routine Lab 03/21/18 15:00 Ordered Acetaminophen [Tylenol] Med 03/20/18 19:13 Active 650 mg PO Q4H PRN Acetaminophen/HYDROcodone [[place] 325-5 MG] Med 03/20/18 19:13 Active 1 tab PO Q4H PRN Albuterol [Proventil HFA] Med 03/21/18 10:05 Active 0 gm INH Q4H PRN Albuterol [Proventil Neb Soln] Med 03/20/18 19:13 Active 2.5 mg NEB Q2H PRN Albuterol/Ipratropium [DuoNeb 3.0-0.5 MG/3 ML] Med 03/20/18 19:13 Active 3 ml NEB Q4H PRN Allopurinol [Zyloprim] Med 03/22/18 09:00 Active 150 mg PO DAILY Bisacodyl [Dulcolax] Med 03/20/18 19:13 Active 5 mg PO DAILY PRN Clopidogrel [Plavix] Med 03/22/18 09:00 Active 75 mg PO DAILY Dextrose 50% in Water Med 03/20/18 18:42 Active 50 ml IVPUSH ASDIRECTED PRN Diltiazem [Dilacor XR] Med 03/21/18 10:15 Active 240 mg PO DAILY Docusate Sodium [Colace] Med 03/20/18 19:13 Active 100 mg PO BID PRN Docusate Sodium/Sennosides [Senna Plus] Med 03/20/18 19:13 Active 1 tab PO BID PRN Enoxaparin [Lovenox] Med 03/22/18 09:00 Active 80 mg SUBCUT DAILY Famotidine [Pepcid] Med 03/21/18 09:00 Active 20 mg PO BID Insulin Lispro [HumaLOG] Med 03/20/18 22:00 Active See Protocol SUBCUT QIDACANDBED Magnesium Hydroxide [Milk of Magnesia] Med 03/20/18 19:13 Active 30 ml PO Q12H PRN Magnesium Sulfate/Water [Magnesium Sulfate 2 GM in Med 03/21/18 10:15 Active Water 50 ML] 2 gm Premix Bag 1 bag IV ONETIME Metoprolol Succinate [Toprol XL] Med 03/22/18 09:00 Active 50 mg PO DAILY Morphine Med 03/20/18 19:13 Active 2 mg IVPUSH Q2H PRN Nitroglycerin [Nitrostat] Med 03/21/18 10:03 Active 0.4 mg SL ASDIRECTED PRN Ondansetron [Zofran ODT] Med 03/20/18 19:13 Active 4 mg PO Q4H PRN Ondansetron [Zofran] Med 03/20/18 19:13 Active 4 mg IV Q4H PRN Polyethylene Glycol 3350 [MiraLAX] Med 03/20/18 19:13 Active 17 gm PO DAILY PRN Sertraline [Zoloft] Med 03/21/18 21:00 Active 50 mg PO BEDTIME Sodium Chloride 0.9% [Normal Saline] 1,000 ml Med 03/20/18 18:45 Active IV ASDIRECTED Sodium Chloride 0.9% [Saline Flush] Med 03/20/18 13:21 Active 10 ml FLUSH ASDIRECTED PRN Tamsulosin [Flomax] Med 03/21/18 21:00 Active 0.4 mg PO BID Temazepam [Restoril] Med 03/20/18 19:13 Active 7.5 mg PO BEDTIME PRN Peripheral IV Insertion Adult [OM.PC] Stat Oth 03/20/18 13:22 Ordered RT Acapella [RESPCARE] Routine Oth 03/20/18 18:52 Active Resuscitation Status Routine Resus Stat 03/20/18 19:13 Ordered Medication Orders Acetaminophen (Tylenol) 650 mg PO Q4H PRN PRN Reason: Pain (Mild 1-3)/fever Hydrocodone Bitart/Acetaminophen ([place] 325-5 Mg) 1 tab PO Q4H PRN PRN Reason: Pain (moderate 4-6) Albuterol (Proventil Neb Soln) 2.5 mg NEB Q2H PRN PRN Reason: Shortness Of Breath/wheezing Albuterol (Proventil Hfa) 0 gm INH Q4H PRN PRN Reason: Wheezing Albuterol/Ipratropium (Duoneb 3.0-0.5 Mg/3 Ml) 3 ml NEB Q4H PRN PRN Reason: Shortness Of Breath/wheezing Allopurinol (Zyloprim) 150 mg PO DAILY [facility] Bisacodyl (Dulcolax) 5 mg PO DAILY PRN PRN Reason: Constipation Clopidogrel Bisulfate (Plavix) 75 mg PO DAILY [facility] Dextrose/Water (Dextrose 50% In Water) 50 ml IVPUSH ASDIRECTED PRN PRN Reason: Hypoglycemia Diltiazem HCl (Dilacor Xr) 240 mg PO DAILY [facility] Docusate Sodium (Colace) 100 mg PO BID PRN PRN Reason: Constipation Enoxaparin Sodium (Lovenox) 80 mg SUBCUT DAILY [facility] Famotidine (Pepcid) 20 mg PO BID [facility] Last Admin: 03/21/18 08:21 Dose: 20 mg Sodium Chloride (Normal Saline) 1,000 mls @ 100 mls/hr IV ASDIRECTED [facility] Last Admin: 03/21/18 06:45 Dose: 100 mls/hr Infusion: 03/21/18 06:12 Dose: 100 mls/hr Admin: 03/20/18 20:12 Dose: 100 mls/hr Magnesium Sulfate 2 gm/ Premix 50 mls @ 25 mls/hr IV ONETIME ONE Stop: 03/21/18 12:14 Insulin Human Lispro (Humalog) 0 unit SUBCUT QIDACANDBED [facility]; Protocol Last Admin: 03/21/18 06:44 Dose: 2 unit Admin: 03/20/18 21:18 Dose: Not Given Magnesium Hydroxide (Milk Of Magnesia) 30 ml PO Q12H PRN PRN Reason: Constipation Metoprolol Succinate (Toprol Xl) 50 mg PO DAILY [facility] Morphine Sulfate (Morphine) 2 mg IVPUSH Q2H PRN PRN Reason: Pain (severe 7-10) Stop: 03/21/18 19:14 Nitroglycerin (Nitrostat) 0.4 mg SL ASDIRECTED PRN PRN Reason: Chest Pain Ondansetron HCl (Zofran Odt) 4 mg PO Q4H PRN PRN Reason: nausea, able to take PO Ondansetron HCl (Zofran) 4 mg IV Q4H PRN PRN Reason: Nausea/Vomiting Polyethylene Glycol (Miralax) 17 gm PO DAILY PRN PRN Reason: Constipation Senna/Docusate Sodium (Senna Plus) 1 tab PO BID PRN PRN Reason: Constipation Sertraline HCl (Zoloft) 50 mg PO BEDTIME [facility] Sodium Chloride (Saline Flush) 10 ml FLUSH ASDIRECTED PRN PRN Reason: Keep Vein Open Last Admin: 03/20/18 14:04 Dose: 10 ml Tamsulosin HCl (Flomax) 0.4 mg PO BID [facility] Temazepam (Restoril) 7.5 mg PO BEDTIME PRN PRN Reason: Sleep Last Admin: 03/20/18 21:19 Dose: 7.5 mg Assessment/Plan Comment:: Elevated Tn, query ARF component; doubt CHF; unable to perform CTA with poor renal function. Check D dimer
[2018-03-20] MEDS: Sodium Chloride 0.9% 1,000 ML IV SCH (20:12)
[2018-03-20] MEDS: Insulin Lispro 100 Unit/ML 3 ML KwikPen SUBCUT SCH (21:18)
[2018-03-20] MEDS: Temazepam 7.5 MG Cap PO PRN (21:19)
[2018-03-21] MEDS: Insulin Lispro 100 Unit/ML 3 ML KwikPen SUBCUT SCH ×4 (06:44→21:31)
[2018-03-21] MEDS: Sodium Chloride 0.9% 1,000 ML IV SCH (06:45)
[2018-03-21] MEDS: Famotidine 20 MG Tab PO SCH ×2 (08:21→20:40)
[2018-03-21] MEDS ORDERED: Enoxaparin 30 MG/0.3 ML Syringe SUBCUT SCH (09:00)
[2018-03-21] MEDS ORDERED: Nitroglycerin 0.4 MG Tab.SL SL PRN (10:03)
[2018-03-21] MEDS ORDERED: Albuterol 6.7 GM Inhaler INH PRN (10:05)
[2018-03-21] MEDS ORDERED: Magnesium Sulfate/Water 2 GM in Premix Bag 1 BAG IV ONE (10:15)
[2018-03-21] MEDS ORDERED: Enoxaparin 60 MG/0.6 ML Syringe SUBCUT ONE (10:30)
--- NOTE | 2018-03-21 11:44 | PCM.PN ---
- General Info Date of Service: 03/21/18 Subjective Update: Increase activity as tolerated; needs diabetic teaching, does not understand basic diabetic needs. Functional Status: Reports: Tolerating Diet, Ambulating, Urinating - Review of Systems General: Reports: No Symptoms HEENT: Reports: No Symptoms Pulmonary: Reports: Shortness of Breath Cardiovascular: Reports: No Symptoms Gastrointestinal: Reports: No Symptoms Genitourinary: Reports: No Symptoms Musculoskeletal: Reports: No Symptoms Skin: Reports: No Symptoms Neurological: Reports: No Symptoms Psychiatric: Reports: No Symptoms - Patient Data Vitals - Most Recent: Last Vital Signs Temp 36.4 C 03/21/18 08:12 Pulse 95 03/20/18 18:26 Resp 16 03/21/18 08:12 BP 137/88 03/21/18 08:12 Pulse Ox 98 03/21/18 08:12 Weight - Most Recent: 90.129 kg I&O - Last 24 Hours: Intake & Output 03/20/18 03/21/18 03/21/18 22:59 06:59 14:59 Intake Total 754 380 Output Total 800 350 Balance -46 30 Lab Results Last 24 Hours: Laboratory Results - last 24 hr 03/20/18 03/20/18 03/20/18 Range/Units 13:35 13:35 13:35 WBC 13.46 H (4.23-9.07) K/mm3 RBC 5.21 (4.63-6.08) M/mm3 Hgb 15.1 (13.7-17.5) gm/L Hct 44.8 (40.1-51.0) % MCV 86.0 (79.0-92.2) fl MCH 29.0 (25.7-32.2) pg MCHC 33.7 (32.2-35.5) g/dl RDW Std Deviation 41.3 (35.1-43.9) fL Plt Count 228 (163-337) K/mm3 MPV 11.2 (9.4-12.3) fl Neut % (Auto) 83.2 H (34.0-67.9) % Lymph % (Auto) 9.1 L (21.8-53.1) % [place] % (Auto) 5.9 (5.3-12.2) % Eos % (Auto) 0.4 L (0.8-7.0) Baso % (Auto) 0.1 (0.1-1.2) % Neut # (Auto) 11.19 H (1.78-5.38) K/mm3 Lymph # (Auto) 1.23 L (1.32-3.57) K/mm3 [place] # (Auto) 0.80 (0.30-0.82) K/mm3 Eos # (Auto) 0.05 (0.04-0.54) K/mm3 Baso # (Auto) 0.02 (0.01-0.08) K/mm3 Manual Slide Review Abnormal smear Puncture Site ABG pH (7.35-7.45) ABG pCO2 (35.0-45.0) mmHg ABG pO2 (80.0-100.0) mmHg ABG HCO3 (22.0-26.0) meq/L ABG O2 Saturation (96.0-97.0) % ABG Base Excess (-2-2.0) Kaz Test A-a Gradient mmHg Sodium 130 L (136-145) mEq/L Potassium 4.9 (3.5-5.1) mEq/L Chloride 96 L (98-107) mEq/L Carbon Dioxide 21 (21-32) mEq/L Anion Gap 17.9 H (5-15) BUN 49 H (7-18) mg/dL Creatinine 2.7 H (0.7-1.3) mg/dL Est Cr Clr Drug Dosing 24.78 mL/min Estimated GFR (MDRD) 23 (>60) mL/min BUN/Creatinine Ratio 18.1 H (14-18) Glucose 663 H* (83-115) mg/dL POC Glucose (83-110) mg/dL Lactic Acid (0.4-2.0) mmol/L Calcium 8.9 (8.5-10.1) mg/dL Magnesium (1.8-2.4) mg/dl Total Bilirubin 0.8 (0.2-1.0) mg/dL AST 27 (15-37) U/L ALT 42 (16-63) U/L Alkaline Phosphatase 59 (46-116) U/L Troponin I 0.182 H* (0.00-0.056) ng/mL C-Reactive Protein 0.5 (<1.0) mg/dL NT-Pro-B Natriuret Pep (0-125) pg/mL Total Protein 6.7 (6.4-8.2) g/dl Albumin 3.6 (3.4-5.0) g/dl Globulin 3.1 gm/dL Albumin/Globulin Ratio 1.2 (1-2) Triglycerides (<150) mg/dL Cholesterol (<200) mg/dL LDL Cholesterol Direct (<100) mg/dL HDL Cholesterol (40-59) mg/dL Urine Color (Yellow) Urine Appearance (Clear) Urine pH (5.0-8.0) Ur Specific [place] (1.005-1.030) Urine Protein (Negative) Urine Glucose (UA) (Negative) Urine Ketones (Negative) Urine Occult Blood (Negative) Urine Nitrite (Negative) Urine Bilirubin (Negative) Urine Urobilinogen (0.2-1.0) Ur Leukocyte Esterase (Negative) Urine RBC (0-5) /hpf Urine WBC (0-5) /hpf Ur Epithelial Cells (0-5) /hpf Urine Bacteria (FEW) /hpf Urine Mucus (FEW) /hpf Ur Random Microalbumin (1.3-20.0) mg/L Mycoplasma pneumon IgM (NEGATIVE) 03/20/18 03/20/18 03/20/18 Range/Units 13:35 13:35 14:20 WBC (4.23-9.07) K/mm3 RBC (4.63-6.08) M/mm3 Hgb (13.7-17.5) gm/L Hct (40.1-51.0) % MCV (79.0-92.2) fl MCH (25.7-32.2) pg MCHC (32.2-35.5) g/dl RDW Std Deviation (35.1-43.9) fL Plt Count (163-337) K/mm3 MPV (9.4-12.3) fl Neut % (Auto) (34.0-67.9) % Lymph % (Auto) (21.8-53.1) % [place] % (Auto) (5.3-12.2) % Eos % (Auto) (0.8-7.0) Baso % (Auto) (0.1-1.2) % Neut # (Auto) (1.78-5.38) K/mm3 Lymph # (Auto) (1.32-3.57) K/mm3 [place] # (Auto) (0.30-0.82) K/mm3 Eos # (Auto) (0.04-0.54) K/mm3 Baso # (Auto) (0.01-0.08) K/mm3 Manual Slide Review Puncture Site Rt radial ABG pH 7.40 (7.35-7.45) ABG pCO2 31.8 L (35.0-45.0) mmHg ABG pO2 61.0 L (80.0-100.0) mmHg ABG HCO3 19.4 L (22.0-26.0) meq/L ABG O2 Saturation 89.2 L (96.0-97.0) % ABG Base Excess -3.8 L (-2-2.0) Kaz Test Positive A-a Gradient 33 mmHg Sodium (136-145) mEq/L Potassium (3.5-5.1) mEq/L Chloride (98-107) mEq/L Carbon Dioxide (21-32) mEq/L Anion Gap (5-15) BUN (7-18) mg/dL Creatinine (0.7-1.3) mg/dL Est Cr Clr Drug Dosing mL/min Estimated GFR (MDRD) (>60) mL/min BUN/Creatinine Ratio (14-18) Glucose (83-115) mg/dL POC Glucose (83-110) mg/dL Lactic Acid (0.4-2.0) mmol/L Calcium (8.5-10.1) mg/dL Magnesium (1.8-2.4) mg/dl Total Bilirubin (0.2-1.0) mg/dL AST (15-37) U/L ALT (16-63) U/L Alkaline Phosphatase (46-116) U/L Troponin I (0.00-0.056) ng/mL C-Reactive Protein (<1.0) mg/dL NT-Pro-B Natriuret Pep 336 H (0-125) pg/mL Total Protein (6.4-8.2) g/dl Albumin (3.4-5.0) g/dl Globulin gm/dL Albumin/Globulin Ratio (1-2) Triglycerides (<150) mg/dL Cholesterol (<200) mg/dL LDL Cholesterol Direct (<100) mg/dL HDL Cholesterol (40-59) mg/dL Urine Color (Yellow) Urine Appearance (Clear) Urine pH (5.0-8.0) Ur Specific [place] (1.005-1.030) Urine Protein (Negative) Urine Glucose (UA) (Negative) Urine Ketones (Negative) Urine Occult Blood (Negative) Urine Nitrite (Negative) Urine Bilirubin (Negative) Urine Urobilinogen (0.2-1.0) Ur Leukocyte Esterase (Negative) Urine RBC (0-5) /hpf Urine WBC (0-5) /hpf Ur Epithelial Cells (0-5) /hpf Urine Bacteria (FEW) /hpf Urine Mucus (FEW) /hpf Ur Random Microalbumin (1.3-20.0) mg/L Mycoplasma pneumon IgM Negative (NEGATIVE) 03/20/18 03/20/18 03/20/18 Range/Units 15:30 15:30 16:48 WBC (4.23-9.07) K/mm3 RBC (4.63-6.08) M/mm3 Hgb (13.7-17.5) gm/L Hct (40.1-51.0) % MCV (79.0-92.2) fl MCH (25.7-32.2) pg MCHC (32.2-35.5) g/dl RDW Std Deviation (35.1-43.9) fL Plt Count (163-337) K/mm3 MPV (9.4-12.3) fl Neut % (Auto) (34.0-67.9) % Lymph % (Auto) (21.8-53.1) % [place] % (Auto) (5.3-12.2) % Eos % (Auto) (0.8-7.0) Baso % (Auto) (0.1-1.2) % Neut # (Auto) (1.78-5.38) K/mm3 Lymph # (Auto) (1.32-3.57) K/mm3 [place] # (Auto) (0.30-0.82) K/mm3 Eos # (Auto) (0.04-0.54) K/mm3 Baso # (Auto) (0.01-0.08) K/mm3 Manual Slide Review Puncture Site ABG pH (7.35-7.45) ABG pCO2 (35.0-45.0) mmHg ABG pO2 (80.0-100.0) mmHg ABG HCO3 (22.0-26.0) meq/L ABG O2 Saturation (96.0-97.0) % ABG Base Excess (-2-2.0) Kaz Test A-a Gradient mmHg Sodium (136-145) mEq/L Potassium (3.5-5.1) mEq/L Chloride (98-107) mEq/L Carbon Dioxide (21-32) mEq/L Anion Gap (5-15) BUN (7-18) mg/dL Creatinine (0.7-1.3) mg/dL Est Cr Clr Drug Dosing mL/min Estimated GFR (MDRD) (>60) mL/min BUN/Creatinine Ratio (14-18) Glucose 630 H* 477 H (83-115) mg/dL POC Glucose (83-110) mg/dL Lactic Acid 2.3 H (0.4-2.0) mmol/L Calcium (8.5-10.1) mg/dL Magnesium (1.8-2.4) mg/dl Total Bilirubin (0.2-1.0) mg/dL AST (15-37) U/L ALT (16-63) U/L Alkaline Phosphatase (46-116) U/L Troponin I (0.00-0.056) ng/mL C-Reactive Protein (<1.0) mg/dL NT-Pro-B Natriuret Pep (0-125) pg/mL Total Protein (6.4-8.2) g/dl Albumin (3.4-5.0) g/dl Globulin gm/dL Albumin/Globulin Ratio (1-2) Triglycerides (<150) mg/dL Cholesterol (<200) mg/dL LDL Cholesterol Direct (<100) mg/dL HDL Cholesterol (40-59) mg/dL Urine Color (Yellow) Urine Appearance (Clear) Urine pH (5.0-8.0) Ur Specific [place] (1.005-1.030) Urine Protein (Negative) Urine Glucose (UA) (Negative) Urine Ketones (Negative) Urine Occult Blood (Negative) Urine Nitrite (Negative) Urine Bilirubin (Negative) Urine Urobilinogen (0.2-1.0) Ur Leukocyte Esterase (Negative) Urine RBC (0-5) /hpf Urine WBC (0-5) /hpf Ur Epithelial Cells (0-5) /hpf Urine Bacteria (FEW) /hpf Urine Mucus (FEW) /hpf Ur Random Microalbumin (1.3-20.0) mg/L Mycoplasma pneumon IgM (NEGATIVE) 03/20/18 03/20/18 03/20/18 Range/Units 16:48 17:45 18:57 WBC (4.23-9.07) K/mm3 RBC (4.63-6.08) M/mm3 Hgb (13.7-17.5) gm/L Hct (40.1-51.0) % MCV (79.0-92.2) fl MCH (25.7-32.2) pg MCHC (32.2-35.5) g/dl RDW Std Deviation (35.1-43.9) fL Plt Count (163-337) K/mm3 MPV (9.4-12.3) fl Neut % (Auto) (34.0-67.9) % Lymph % (Auto) (21.8-53.1) % [place] % (Auto) (5.3-12.2) % Eos % (Auto) (0.8-7.0) Baso % (Auto) (0.1-1.2) % Neut # (Auto) (1.78-5.38) K/mm3 Lymph # (Auto) (1.32-3.57) K/mm3 [place] # (Auto) (0.30-0.82) K/mm3 Eos # (Auto) (0.04-0.54) K/mm3 Baso # (Auto) (0.01-0.08) K/mm3 Manual Slide Review Puncture Site ABG pH (7.35-7.45) ABG pCO2 (35.0-45.0) mmHg ABG pO2 (80.0-100.0) mmHg ABG HCO3 (22.0-26.0) meq/L ABG O2 Saturation (96.0-97.0) % ABG Base Excess (-2-2.0) Kaz Test A-a Gradient mmHg Sodium (136-145) mEq/L Potassium (3.5-5.1) mEq/L Chloride (98-107) mEq/L Carbon Dioxide (21-32) mEq/L Anion Gap (5-15) BUN (7-18) mg/dL Creatinine (0.7-1.3) mg/dL Est Cr Clr Drug Dosing mL/min Estimated GFR (MDRD) (>60) mL/min BUN/Creatinine Ratio (14-18) Glucose 381 H (83-115) mg/dL POC Glucose 296 H (83-110) mg/dL Lactic Acid (0.4-2.0) mmol/L Calcium (8.5-10.1) mg/dL Magnesium (1.8-2.4) mg/dl Total Bilirubin (0.2-1.0) mg/dL AST (15-37) U/L ALT (16-63) U/L Alkaline Phosphatase (46-116) U/L Troponin I 0.174 H* (0.00-0.056) ng/mL C-Reactive Protein (<1.0) mg/dL NT-Pro-B Natriuret Pep (0-125) pg/mL Total Protein (6.4-8.2) g/dl Albumin (3.4-5.0) g/dl Globulin gm/dL Albumin/Globulin Ratio (1-2) Triglycerides (<150) mg/dL Cholesterol (<200) mg/dL LDL Cholesterol Direct (<100) mg/dL HDL Cholesterol (40-59) mg/dL Urine Color (Yellow) Urine Appearance (Clear) Urine pH (5.0-8.0) Ur Specific [place] (1.005-1.030) Urine Protein (Negative) Urine Glucose (UA) (Negative) Urine Ketones (Negative) Urine Occult Blood (Negative) Urine Nitrite (Negative) Urine Bilirubin (Negative) Urine Urobilinogen (0.2-1.0) Ur Leukocyte Esterase (Negative) Urine RBC (0-5) /hpf Urine WBC (0-5) /hpf Ur Epithelial Cells (0-5) /hpf Urine Bacteria (FEW) /hpf Urine Mucus (FEW) /hpf Ur Random Microalbumin (1.3-20.0) mg/L Mycoplasma pneumon IgM (NEGATIVE) 03/20/18 03/20/18 03/20/18 Range/Units 20:11 20:15 20:15 WBC (4.23-9.07) K/mm3 RBC (4.63-6.08) M/mm3 Hgb (13.7-17.5) gm/L Hct (40.1-51.0) % MCV (79.0-92.2) fl MCH (25.7-32.2) pg MCHC (32.2-35.5) g/dl RDW Std Deviation (35.1-43.9) fL Plt Count (163-337) K/mm3 MPV (9.4-12.3) fl Neut % (Auto) (34.0-67.9) % Lymph % (Auto) (21.8-53.1) % [place] % (Auto) (5.3-12.2) % Eos % (Auto) (0.8-7.0) Baso % (Auto) (0.1-1.2) % Neut # (Auto) (1.78-5.38) K/mm3 Lymph # (Auto) (1.32-3.57) K/mm3 [place] # (Auto) (0.30-0.82) K/mm3 Eos # (Auto) (0.04-0.54) K/mm3 Baso # (Auto) (0.01-0.08) K/mm3 Manual Slide Review Puncture Site ABG pH (7.35-7.45) ABG pCO2 (35.0-45.0) mmHg ABG pO2 (80.0-100.0) mmHg ABG HCO3 (22.0-26.0) meq/L ABG O2 Saturation (96.0-97.0) % ABG Base Excess (-2-2.0) Kaz Test A-a Gradient mmHg Sodium (136-145) mEq/L Potassium (3.5-5.1) mEq/L Chloride (98-107) mEq/L Carbon Dioxide (21-32) mEq/L Anion Gap (5-15) BUN (7-18) mg/dL Creatinine (0.7-1.3) mg/dL Est Cr Clr Drug Dosing mL/min Estimated GFR (MDRD) (>60) mL/min BUN/Creatinine Ratio (14-18) Glucose (83-115) mg/dL POC Glucose 196 H (83-110) mg/dL Lactic Acid (0.4-2.0) mmol/L Calcium (8.5-10.1) mg/dL Magnesium (1.8-2.4) mg/dl Total Bilirubin (0.2-1.0) mg/dL AST (15-37) U/L ALT (16-63) U/L Alkaline Phosphatase (46-116) U/L Troponin I (0.00-0.056) ng/mL C-Reactive Protein (<1.0) mg/dL NT-Pro-B Natriuret Pep (0-125) pg/mL Total Protein (6.4-8.2) g/dl Albumin (3.4-5.0) g/dl Globulin gm/dL Albumin/Globulin Ratio (1-2) Triglycerides (<150) mg/dL Cholesterol (<200) mg/dL LDL Cholesterol Direct (<100) mg/dL HDL Cholesterol (40-59) mg/dL Urine Color Light yellow (Yellow) Urine Appearance Clear (Clear) Urine pH 6.0 (5.0-8.0) Ur Specific [place] 1.020 (1.005-1.030) Urine Protein Negative (Negative) Urine Glucose (UA) 1+ H (Negative) Urine Ketones Negative (Negative) Urine Occult Blood Negative (Negative) Urine Nitrite Negative (Negative) Urine Bilirubin Negative (Negative) Urine Urobilinogen 0.2 (0.2-1.0) Ur Leukocyte Esterase Negative (Negative) Urine RBC 0-5 (0-5) /hpf Urine WBC 0-5 (0-5) /hpf Ur Epithelial Cells 0-5 (0-5) /hpf Urine Bacteria Occasional (FEW) /hpf Urine Mucus Not seen (FEW) /hpf Ur Random Microalbumin 3.7 (1.3-20.0) mg/L Mycoplasma pneumon IgM (NEGATIVE) 03/20/18 03/21/18 03/21/18 Range/Units 21:17 03:55 05:43 WBC (4.23-9.07) K/mm3 RBC (4.63-6.08) M/mm3 Hgb (13.7-17.5) gm/L Hct (40.1-51.0) % MCV (79.0-92.2) fl MCH (25.7-32.2) pg MCHC (32.2-35.5) g/dl RDW Std Deviation (35.1-43.9) fL Plt Count (163-337) K/mm3 MPV (9.4-12.3) fl Neut % (Auto) (34.0-67.9) % Lymph % (Auto) (21.8-53.1) % [place] % (Auto) (5.3-12.2) % Eos % (Auto) (0.8-7.0) Baso % (Auto) (0.1-1.2) % Neut # (Auto) (1.78-5.38) K/mm3 Lymph # (Auto) (1.32-3.57) K/mm3 [place] # (Auto) (0.30-0.82) K/mm3 Eos # (Auto) (0.04-0.54) K/mm3 Baso # (Auto) (0.01-0.08) K/mm3 Manual Slide Review Puncture Site ABG pH (7.35-7.45) ABG pCO2 (35.0-45.0) mmHg ABG pO2 (80.0-100.0) mmHg ABG HCO3 (22.0-26.0) meq/L ABG O2 Saturation (96.0-97.0) % ABG Base Excess (-2-2.0) Kaz Test A-a Gradient mmHg Sodium 139 (136-145) mEq/L Potassium 4.5 (3.5-5.1) mEq/L Chloride 105 (98-107) mEq/L Carbon Dioxide 26 (21-32) mEq/L Anion Gap 12.5 (5-15) BUN 35 H (7-18) mg/dL Creatinine 1.7 H (0.7-1.3) mg/dL Est Cr Clr Drug Dosing 39.36 mL/min Estimated GFR (MDRD) 40 (>60) mL/min BUN/Creatinine Ratio 20.6 H (14-18) Glucose 167 H (83-115) mg/dL POC Glucose 129 H 166 H (83-110) mg/dL Lactic Acid (0.4-2.0) mmol/L Calcium 8.4 L (8.5-10.1) mg/dL Magnesium 1.8 (1.8-2.4) mg/dl Total Bilirubin (0.2-1.0) mg/dL AST (15-37) U/L ALT (16-63) U/L Alkaline Phosphatase (46-116) U/L Troponin I 0.197 H* (0.00-0.056) ng/mL C-Reactive Protein 0.6 (<1.0) mg/dL NT-Pro-B Natriuret Pep (0-125) pg/mL Total Protein (6.4-8.2) g/dl Albumin (3.4-5.0) g/dl Globulin gm/dL Albumin/Globulin Ratio (1-2) Triglycerides 84 (<150) mg/dL Cholesterol 152 (<200) mg/dL LDL Cholesterol Direct 105 H* (<100) mg/dL HDL Cholesterol 41.0 (40-59) mg/dL Urine Color (Yellow) Urine Appearance (Clear) Urine pH (5.0-8.0) Ur Specific [place] (1.005-1.030) Urine Protein (Negative) Urine Glucose (UA) (Negative) Urine Ketones (Negative) Urine Occult Blood (Negative) Urine Nitrite (Negative) Urine Bilirubin (Negative) Urine Urobilinogen (0.2-1.0) Ur Leukocyte Esterase (Negative) Urine RBC (0-5) /hpf Urine WBC (0-5) /hpf Ur Epithelial Cells (0-5) /hpf Urine Bacteria (FEW) /hpf Urine Mucus (FEW) /hpf Ur Random Microalbumin (1.3-20.0) mg/L Mycoplasma pneumon IgM (NEGATIVE) 03/21/18 03/21/18 Range/Units 05:43 06:43 WBC 10.70 H (4.23-9.07) K/mm3 RBC 4.83 (4.63-6.08) M/mm3 Hgb 14.0 (13.7-17.5) gm/L Hct 42.3 (40.1-51.0) % MCV 87.6 (79.0-92.2) fl MCH 29.0 (25.7-32.2) pg MCHC 33.1 (32.2-35.5) g/dl RDW Std Deviation 42.9 (35.1-43.9) fL Plt Count 214 (163-337) K/mm3 MPV 10.6 (9.4-12.3) fl Neut % (Auto) 66.6 (34.0-67.9) % Lymph % (Auto) 22.1 (21.8-53.1) % [place] % (Auto) 7.3 (5.3-12.2) % Eos % (Auto) 2.4 (0.8-7.0) Baso % (Auto) 0.1 (0.1-1.2) % Neut # (Auto) 7.13 H (1.78-5.38) K/mm3 Lymph # (Auto) 2.36 (1.32-3.57) K/mm3 [place] # (Auto) 0.78 (0.30-0.82) K/mm3 Eos # (Auto) 0.26 (0.04-0.54) K/mm3 Baso # (Auto) 0.01 (0.01-0.08) K/mm3 Manual Slide Review Abnormal smear Puncture Site ABG pH (7.35-7.45) ABG pCO2 (35.0-45.0) mmHg ABG pO2 (80.0-100.0) mmHg ABG HCO3 (22.0-26.0) meq/L ABG O2 Saturation (96.0-97.0) % ABG Base Excess (-2-2.0) Kaz Test A-a Gradient mmHg Sodium (136-145) mEq/L Potassium (3.5-5.1) mEq/L Chloride (98-107) mEq/L Carbon Dioxide (21-32) mEq/L Anion Gap (5-15) BUN (7-18) mg/dL Creatinine (0.7-1.3) mg/dL Est Cr Clr Drug Dosing mL/min Estimated GFR (MDRD) (>60) mL/min BUN/Creatinine Ratio (14-18) Glucose (83-115) mg/dL POC Glucose 172 H (83-110) mg/dL Lactic Acid (0.4-2.0) mmol/L Calcium (8.5-10.1) mg/dL Magnesium (1.8-2.4) mg/dl Total Bilirubin (0.2-1.0) mg/dL AST (15-37) U/L ALT (16-63) U/L Alkaline Phosphatase (46-116) U/L Troponin I (0.00-0.056) ng/mL C-Reactive Protein (<1.0) mg/dL NT-Pro-B Natriuret Pep (0-125) pg/mL Total Protein (6.4-8.2) g/dl Albumin (3.4-5.0) g/dl Globulin gm/dL Albumin/Globulin Ratio (1-2) Triglycerides (<150) mg/dL Cholesterol (<200) mg/dL LDL Cholesterol Direct (<100) mg/dL HDL Cholesterol (40-59) mg/dL Urine Color (Yellow) Urine Appearance (Clear) Urine pH (5.0-8.0) Ur Specific [place] (1.005-1.030) Urine Protein (Negative) Urine Glucose (UA) (Negative) Urine Ketones (Negative) Urine Occult Blood (Negative) Urine Nitrite (Negative) Urine Bilirubin (Negative) Urine Urobilinogen (0.2-1.0) Ur Leukocyte Esterase (Negative) Urine RBC (0-5) /hpf Urine WBC (0-5) /hpf Ur Epithelial Cells (0-5) /hpf Urine Bacteria (FEW) /hpf Urine Mucus (FEW) /hpf Ur Random Microalbumin (1.3-20.0) mg/L Mycoplasma pneumon IgM (NEGATIVE) Clif Results Last 24 Hours: Microbiology 03/20/18 20:15 Influenza Type A Antigen Screen - Final Nasopharyngeal Swab NEGATIVE INFLUENZA A VIRUS AG Influenza Type B Antigen Screen - Final NEGATIVE INFLUENZA B VIRUS AG Med Orders - Current: Current Medications Acetaminophen (Tylenol) 650 mg PO Q4H PRN PRN Reason: Pain (Mild 1-3)/fever Hydrocodone Bitart/Acetaminophen ([place] 325-5 Mg) 1 tab PO Q4H PRN PRN Reason: Pain (moderate 4-6) Albuterol (Proventil Neb Soln) 2.5 mg NEB Q2H PRN PRN Reason: Shortness Of Breath/wheezing Albuterol (Proventil Hfa) 0 gm INH Q4H PRN PRN Reason: Wheezing Albuterol/Ipratropium (Duoneb 3.0-0.5 Mg/3 Ml) 3 ml NEB Q4H PRN PRN Reason: Shortness Of Breath/wheezing Allopurinol (Zyloprim) 150 mg PO DAILY [facility] Bisacodyl (Dulcolax) 5 mg PO DAILY PRN PRN Reason: Constipation Clopidogrel Bisulfate (Plavix) 75 mg PO DAILY [facility] Dextrose/Water (Dextrose 50% In Water) 50 ml IVPUSH ASDIRECTED PRN PRN Reason: Hypoglycemia Diltiazem HCl (Dilacor Xr) 240 mg PO DAILY [facility] Docusate Sodium (Colace) 100 mg PO BID PRN PRN Reason: Constipation Enoxaparin Sodium (Lovenox) 80 mg SUBCUT DAILY [facility] Famotidine (Pepcid) 20 mg PO BID [facility] Last Admin: 03/21/18 08:21 Dose: 20 mg Sodium Chloride (Normal Saline) 1,000 mls @ 100 mls/hr IV ASDIRECTED [facility] Last Admin: 03/21/18 06:45 Dose: 100 mls/hr Magnesium Sulfate 2 gm/ Premix 50 mls @ 25 mls/hr IV ONETIME ONE Stop: 03/21/18 12:14 Insulin Human Lispro (Humalog) 0 unit SUBCUT QIDACANDBED [facility]; Protocol Last Admin: 03/21/18 06:44 Dose: 2 unit Magnesium Hydroxide (Milk Of Magnesia) 30 ml PO Q12H PRN PRN Reason: Constipation Metoprolol Succinate (Toprol Xl) 50 mg PO DAILY [facility] Morphine Sulfate (Morphine) 2 mg IVPUSH Q2H PRN PRN Reason: Pain (severe 7-10) Stop: 03/21/18 19:14 Nitroglycerin (Nitrostat) 0.4 mg SL ASDIRECTED PRN PRN Reason: Chest Pain Ondansetron HCl (Zofran Odt) 4 mg PO Q4H PRN PRN Reason: nausea, able to take PO Ondansetron HCl (Zofran) 4 mg IV Q4H PRN PRN Reason: Nausea/Vomiting Polyethylene Glycol (Miralax) 17 gm PO DAILY PRN PRN Reason: Constipation Senna/Docusate Sodium (Senna Plus) 1 tab PO BID PRN PRN Reason: Constipation Sertraline HCl (Zoloft) 50 mg PO BEDTIME [facility] Sodium Chloride (Saline Flush) 10 ml FLUSH ASDIRECTED PRN PRN Reason: Keep Vein Open Last Admin: 03/20/18 14:04 Dose: 10 ml Tamsulosin HCl (Flomax) 0.4 mg PO BID [facility] Temazepam (Restoril) 7.5 mg PO BEDTIME PRN PRN Reason: Sleep Last Admin: 03/20/18 21:19 Dose: 7.5 mg Discontinued Medications Albuterol/Ipratropium (Duoneb 3.0-0.5 Mg/3 Ml) 3 ml NEB ONETIME ONE Stop: 03/20/18 13:30 Last Admin: 03/20/18 14:11 Dose: 3 ml Enoxaparin Sodium (Lovenox) 30 mg SUBCUT DAILY [facility] Last Admin: 03/21/18 08:21 Dose: 30 mg Enoxaparin Sodium (Lovenox) 50 mg SUBCUT ONETIME ONE Stop: 03/21/18 10:31 Furosemide (Lasix) 20 mg IVPUSH NOW ONE Stop: 03/20/18 13:30 Last Admin: 03/20/18 14:04 Dose: 20 mg Sodium Chloride (Normal Saline) 1,000 mls @ 999 mls/hr IV ONETIME [facility] Last Admin: 03/20/18 14:43 Dose: 999 mls/hr Sodium Chloride (Normal Saline) 1,000 mls @ 999 mls/hr IV ONETIME ONE Stop: 03/20/18 16:51 Last Admin: 03/20/18 15:57 Dose: 999 mls/hr Insulin Human Regular 100 unit (/ Sodium Chloride) 100 mls @ 0.5 mls/hr IV TITRATE [facility]; Protocol Last Titration: 03/20/18 19:05 Dose: 6 units/hr, 6 mls/hr Sodium Chloride (Normal Saline) Confirm Administered Dose 100 mls @ as directed .ROUTE .STK-MED ONE Stop: 03/20/18 17:04 Last Admin: 03/20/18 17:25 Dose: Not Given Sodium Chloride (Normal Saline) 1,000 mls @ 999 mls/hr IV ONETIME ONE Stop: 03/20/18 18:22 Last Admin: 03/20/18 17:39 Dose: 999 mls/hr Insulin Human Regular (Humulin R) 5 unit IVPUSH ONETIME ONE; Protocol Stop: 03/20/18 14:18 Last Admin: 03/20/18 14:45 Dose: 5 units Insulin Human Regular (Humulin R) 5 unit IVPUSH ONETIME ONE; Protocol Stop: 03/20/18 16:13 Last Admin: 03/20/18 16:17 Dose: 5 units - Exam Quality Assessment: Supplemental Oxygen, DVT Prophylaxis General: Alert, Oriented, Cooperative, No Acute Distress HEENT: Pupils Equal, Pupils Reactive, EOMI Neck: Trachea Midline, No JVD Lungs: Normal Respiratory Effort, Decreased Breath Sounds, Rhonchi Cardiovascular: Regular Rate GI/Abdominal Exam: Normal Bowel Sounds, Soft, Non-Tender, No Organomegaly, No Distention (Male) Exam: Deferred Back Exam: Normal Inspection Extremities: Normal Inspection, Normal Capillary Refill Skin: Warm Neurological: No New Focal Deficit Psy/Mental Status: Alert, Normal Affect, Normal Mood - Problem List Review Problem List Initiated/Reviewed/Updated: Yes - My Orders Last 24 Hours: My Active Orders 03/20/18 19:47 Patient Status [ADT] Routine 03/21/18 10:03 Nitroglycerin [Nitrostat] 0.4 mg SL ASDIRECTED PRN 03/21/18 10:05 Albuterol [Proventil HFA] 0 gm INH Q4H PRN 03/21/18 10:15 Diltiazem [Dilacor XR] 240 mg PO DAILY Magnesium Sulfate/Water [Magnesium Sulfate 2 GM in Water 50 ML] 2 gm Premix Bag 1 bag IV ONETIME 03/21/18 15:00 CKMB [CHEM] Routine TROPONIN I [CHEM] Routine 03/21/18 21:00 Sertraline [Zoloft] 50 mg PO BEDTIME Tamsulosin [Flomax] 0.4 mg PO BID 03/22/18 09:00 Allopurinol [Zyloprim] 150 mg PO DAILY Clopidogrel [Plavix] 75 mg PO DAILY Enoxaparin [Lovenox] 80 mg SUBCUT DAILY Metoprolol Succinate [Toprol XL] 50 mg PO DAILY - Plan Plan:: Assessment/Plan: Acute: SOB with persistent dry cough * Symptoms x 1 week; Was seen at walk-in clinic 3x and given numerous Abx without relief * Per SW, was reportedly given 2 Z-Paks and Amoxicillin * Risk factor: h/o COPD * No recent sick contacts * CXR in ED shows nothing acute; pending formal read * Mycoplasma negative * RVP, Strep pneumo pending * CT chest pending * RT/Duonebs/IS/Acapella Hyperglycemia * Risk factor: h/o DM2, medical non-compliance (pt states he does not check his BS at home consistently) * 630--> 381--> 296 * Insulin Sliding Scale * Blood Glucose Checks QIDACBED * [employer]nament [employer] Hand Dehydration * Pt unsure as to why he may be dehydrated * Anion Gap 17.9 * IVF * Monitor GRETA * Acute on Chronic (h/o CKD III) * Likely 2/2 above * GFR 23, BUN 49, Cr 2.7 * IVF * Avoid nephrotoxic drugs Elevated Troponin * Likely leak 2/2 CHF; asymptomatic * 0.182--> 0.174 * EKG in ED shows no ST elevation * Serial troponins * Lipid panel pending * ECHO 08/14/17: LVEF 45-50% * Repeat ECHO pending Chronic: HTN HLD CHF Arrhythmia COPD CKD III GERD Arthritis DM2 * Microalbumin pending Overweight * Dietary Consult * Recommend [facility] sleep study outpt Plan: Medical Floor on telemetry Respiratory droplet precautions Routine AM Labs NPO; advance to clear liquid in AM DVT/GI prophylaxis Code Status: Full; PCP: Dr. Chano Holguin Elevated Tn, query ARF component; doubt CHF; unable to perform CTA with poor renal function. Check D dimer; serial TnI/CkMb
[2018-03-21] MEDS: Diltiazem 240 MG Cap.ER PO SCH (11:52)
--- NOTE | 2018-03-21 15:30 | CR ---
Chest: Portable view of the chest was obtained. Comparison: No prior chest x-ray, prior chest CT of 07/10/17 is available. Heart size and mediastinum are within normal limits for portable technique. Lungs are clear. Detached bony density compatible with old fracture is noted off the distal right clavicle. Inferior spurring is noted off the acromion process within the right acromioclavicular joint. Mild scoliosis is noted within the spine. Impression: 1. Incidental findings. Nothing acute is seen on portable chest x-ray. Diagnostic code #2
[2018-03-21] MEDS: Temazepam 7.5 MG Cap PO PRN (20:40)
[2018-03-21] MEDS: Metoprolol Tartrate 50 MG Tab PO SCH (20:40)
[2018-03-21] MEDS: Tamsulosin 0.4 MG Cap.ER PO SCH (20:40)
[2018-03-21] MEDS: Sertraline 50 MG Tab PO SCH (20:40)
[2018-03-21] MEDS: Doxycycline 100 MG in Sodium Chloride 0.9% 100 ML IV SCH (21:31)
[2018-03-22] MEDS: Insulin Lispro 100 Unit/ML 3 ML KwikPen SUBCUT SCH ×5 (07:33→21:28)
[2018-03-22] MEDS: Enoxaparin 80 MG/0.8 ML Syringe SUBCUT SCH (08:09)
[2018-03-22] MEDS: Metoprolol Tartrate 50 MG Tab PO SCH ×2 (08:10→21:14)
[2018-03-22] MEDS: Famotidine 20 MG Tab PO SCH (08:10)
[2018-03-22] MEDS: Clopidogrel 75 MG Tab PO SCH (08:10)
[2018-03-22] MEDS: Allopurinol 300 MG Tab PO SCH (08:11)
[2018-03-22] MEDS: Diltiazem 240 MG Cap.ER PO SCH (08:11)
[2018-03-22] MEDS: Tamsulosin 0.4 MG Cap.ER PO SCH ×2 (08:11→21:14)
[2018-03-22] MEDS: Doxycycline 100 MG in Sodium Chloride 0.9% 100 ML IV SCH ×2 (08:35→21:14)
[2018-03-22] MEDS ORDERED: Metoprolol Succinate 50 MG Tab.ER PO SCH (09:00)
--- NOTE | 2018-03-22 10:22 | PCM.PN ---
- General Info Date of Service: 03/22/18 Subjective Update: Less shortness of breath, patient has been updated on the plan. Possible DC on 03/23/18. Functional Status: Reports: Tolerating Diet, Ambulating, Urinating - Review of Systems General: Reports: Fatigue (less) HEENT: Reports: No Symptoms Pulmonary: Reports: Shortness of Breath (less) Cardiovascular: Reports: No Symptoms Gastrointestinal: Reports: No Symptoms Genitourinary: Reports: No Symptoms Musculoskeletal: Reports: No Symptoms Skin: Reports: No Symptoms Neurological: Reports: No Symptoms Psychiatric: Reports: No Symptoms - Patient Data Vitals - Most Recent: Last Vital Signs Temp 37.1 C 03/22/18 07:37 Pulse 96 03/22/18 08:10 Resp 16 03/22/18 07:37 BP 152/74 H 03/22/18 08:10 Pulse Ox 92 L 03/22/18 07:37 Weight - Most Recent: 89.403 kg I&O - Last 24 Hours: Intake & Output 03/21/18 03/22/18 03/22/18 22:59 06:59 14:59 Intake Total 2000 300 Output Total 400 600 550 Balance 1600 -300 -550 Lab Results Last 24 Hours: Laboratory Results - last 24 hr 03/21/18 03/21/18 03/21/18 Range/Units 11:54 14:28 14:28 WBC (4.23-9.07) K/mm3 RBC (4.63-6.08) M/mm3 Hgb (13.7-17.5) gm/L Hct (40.1-51.0) % MCV (79.0-92.2) fl MCH (25.7-32.2) pg MCHC (32.2-35.5) g/dl RDW Std Deviation (35.1-43.9) fL Plt Count (163-337) K/mm3 MPV (9.4-12.3) fl Neut % (Auto) (34.0-67.9) % Lymph % (Auto) (21.8-53.1) % Harlan % (Auto) (5.3-12.2) % Eos % (Auto) (0.8-7.0) Baso % (Auto) (0.1-1.2) % Neut # (Auto) (1.78-5.38) K/mm3 Lymph # (Auto) (1.32-3.57) K/mm3 Harlan # (Auto) (0.30-0.82) K/mm3 Eos # (Auto) (0.04-0.54) K/mm3 Baso # (Auto) (0.01-0.08) K/mm3 Manual Slide Review D-Dimer, Quantitative 1.58 H (0.19-0.50) mg/L Sodium (136-145) mEq/L Potassium (3.5-5.1) mEq/L Chloride (98-107) mEq/L Carbon Dioxide (21-32) mEq/L Anion Gap (5-15) BUN (7-18) mg/dL Creatinine (0.7-1.3) mg/dL Est Cr Clr Drug Dosing mL/min Estimated GFR (MDRD) (>60) mL/min BUN/Creatinine Ratio (14-18) Glucose (83-115) mg/dL POC Glucose 221 H (83-110) mg/dL Calcium (8.5-10.1) mg/dL Magnesium (1.8-2.4) mg/dl CK-MB (CK-2) 4.1 H (0-3.6) ng/ml Troponin I (0.00-0.056) ng/mL C-Reactive Protein (<1.0) mg/dL 03/21/18 03/21/18 03/21/18 Range/Units 14:28 16:43 20:39 WBC (4.23-9.07) K/mm3 RBC (4.63-6.08) M/mm3 Hgb (13.7-17.5) gm/L Hct (40.1-51.0) % MCV (79.0-92.2) fl MCH (25.7-32.2) pg MCHC (32.2-35.5) g/dl RDW Std Deviation (35.1-43.9) fL Plt Count (163-337) K/mm3 MPV (9.4-12.3) fl Neut % (Auto) (34.0-67.9) % Lymph % (Auto) (21.8-53.1) % Harlan % (Auto) (5.3-12.2) % Eos % (Auto) (0.8-7.0) Baso % (Auto) (0.1-1.2) % Neut # (Auto) (1.78-5.38) K/mm3 Lymph # (Auto) (1.32-3.57) K/mm3 Harlan # (Auto) (0.30-0.82) K/mm3 Eos # (Auto) (0.04-0.54) K/mm3 Baso # (Auto) (0.01-0.08) K/mm3 Manual Slide Review D-Dimer, Quantitative (0.19-0.50) mg/L Sodium (136-145) mEq/L Potassium (3.5-5.1) mEq/L Chloride (98-107) mEq/L Carbon Dioxide (21-32) mEq/L Anion Gap (5-15) BUN (7-18) mg/dL Creatinine (0.7-1.3) mg/dL Est Cr Clr Drug Dosing mL/min Estimated GFR (MDRD) (>60) mL/min BUN/Creatinine Ratio (14-18) Glucose (83-115) mg/dL POC Glucose 307 H 318 H (83-110) mg/dL Calcium (8.5-10.1) mg/dL Magnesium (1.8-2.4) mg/dl CK-MB (CK-2) (0-3.6) ng/ml Troponin I 0.196 H* (0.00-0.056) ng/mL C-Reactive Protein (<1.0) mg/dL 03/22/18 03/22/18 03/22/18 Range/Units 05:48 05:48 06:33 WBC 8.51 (4.23-9.07) K/mm3 RBC 4.60 L (4.63-6.08) M/mm3 Hgb 13.4 L (13.7-17.5) gm/L Hct 40.7 (40.1-51.0) % MCV 88.5 (79.0-92.2) fl MCH 29.1 (25.7-32.2) pg MCHC 32.9 (32.2-35.5) g/dl RDW Std Deviation 42.9 (35.1-43.9) fL Plt Count 189 (163-337) K/mm3 MPV 10.7 (9.4-12.3) fl Neut % (Auto) 59.9 (34.0-67.9) % Lymph % (Auto) 27.0 (21.8-53.1) % Harlan % (Auto) 8.9 (5.3-12.2) % Eos % (Auto) 2.8 (0.8-7.0) Baso % (Auto) 0.1 (0.1-1.2) % Neut # (Auto) 5.09 (1.78-5.38) K/mm3 Lymph # (Auto) 2.30 (1.32-3.57) K/mm3 Harlan # (Auto) 0.76 (0.30-0.82) K/mm3 Eos # (Auto) 0.24 (0.04-0.54) K/mm3 Baso # (Auto) 0.01 (0.01-0.08) K/mm3 Manual Slide Review Abnormal smear D-Dimer, Quantitative (0.19-0.50) mg/L Sodium 137 (136-145) mEq/L Potassium 4.4 (3.5-5.1) mEq/L Chloride 104 (98-107) mEq/L Carbon Dioxide 23 (21-32) mEq/L Anion Gap 14.4 (5-15) BUN 26 H (7-18) mg/dL Creatinine 1.6 H (0.7-1.3) mg/dL Est Cr Clr Drug Dosing 41.82 mL/min Estimated GFR (MDRD) 42 (>60) mL/min BUN/Creatinine Ratio 16.3 (14-18) Glucose 202 H (83-115) mg/dL POC Glucose 224 H (83-110) mg/dL Calcium 8.6 (8.5-10.1) mg/dL Magnesium 2.0 (1.8-2.4) mg/dl CK-MB (CK-2) (0-3.6) ng/ml Troponin I 0.173 H* (0.00-0.056) ng/mL C-Reactive Protein 1.1 H* (<1.0) mg/dL Med Orders - Current: Current Medications Acetaminophen (Tylenol) 650 mg PO Q4H PRN PRN Reason: Pain (Mild 1-3)/fever Hydrocodone Bitart/Acetaminophen ([place] 325-5 Mg) 1 tab PO Q4H PRN PRN Reason: Pain (moderate 4-6) Last Admin: 03/21/18 20:38 Dose: 1 tab Albuterol (Proventil Neb Soln) 2.5 mg NEB Q2H PRN PRN Reason: Shortness Of Breath/wheezing Albuterol (Proventil Hfa) 0 gm INH Q4H PRN PRN Reason: Wheezing Last Admin: 03/21/18 18:19 Dose: 2 puff Albuterol/Ipratropium (Duoneb 3.0-0.5 Mg/3 Ml) 3 ml NEB Q4H PRN PRN Reason: Shortness Of Breath/wheezing Allopurinol (Zyloprim) 150 mg PO DAILY [facility] Last Admin: 03/22/18 08:11 Dose: 150 mg Bisacodyl (Dulcolax) 5 mg PO DAILY PRN PRN Reason: Constipation Clopidogrel Bisulfate (Plavix) 75 mg PO DAILY [facility] Last Admin: 03/22/18 08:10 Dose: 75 mg Dextrose/Water (Dextrose 50% In Water) 50 ml IVPUSH ASDIRECTED PRN PRN Reason: Hypoglycemia Diltiazem HCl (Dilacor Xr) 240 mg PO DAILY [facility] Last Admin: 03/22/18 08:11 Dose: 240 mg Docusate Sodium (Colace) 100 mg PO BID PRN PRN Reason: Constipation Enoxaparin Sodium (Lovenox) 80 mg SUBCUT DAILY [facility] Last Admin: 03/22/18 08:09 Dose: 80 mg Famotidine (Pepcid) 20 mg PO DAILY [facility] Last Admin: 03/22/18 08:10 Dose: 20 mg Doxycycline Hyclate 100 mg/ (Sodium Chloride) 100 mls @ 100 mls/hr IV Q12HR [facility] Last Admin: 03/22/18 08:35 Dose: 100 mls/hr Insulin Human Lispro (Humalog) 0 unit SUBCUT QIDACANDBED [facility]; Protocol Last Admin: 03/22/18 07:33 Dose: 4 unit Magnesium Hydroxide (Milk Of Magnesia) 30 ml PO Q12H PRN PRN Reason: Constipation Metoprolol Tartrate (Lopressor) 50 mg PO Q12H [facility] Last Admin: 03/22/18 08:10 Dose: 50 mg Nitroglycerin (Nitrostat) 0.4 mg SL ASDIRECTED PRN PRN Reason: Chest Pain Ondansetron HCl (Zofran Odt) 4 mg PO Q4H PRN PRN Reason: nausea, able to take PO Ondansetron HCl (Zofran) 4 mg IV Q4H PRN PRN Reason: Nausea/Vomiting Polyethylene Glycol (Miralax) 17 gm PO DAILY PRN PRN Reason: Constipation Senna/Docusate Sodium (Senna Plus) 1 tab PO BID PRN PRN Reason: Constipation Sertraline HCl (Zoloft) 50 mg PO BEDTIME [facility] Last Admin: 03/21/18 20:40 Dose: 50 mg Sodium Chloride (Saline Flush) 10 ml FLUSH ASDIRECTED PRN PRN Reason: Keep Vein Open Last Admin: 03/20/18 14:04 Dose: 10 ml Tamsulosin HCl (Flomax) 0.4 mg PO BID [facility] Last Admin: 03/22/18 08:11 Dose: 0.4 mg Temazepam (Restoril) 7.5 mg PO BEDTIME PRN PRN Reason: Sleep Last Admin: 03/21/18 20:40 Dose: 7.5 mg Discontinued Medications Albuterol/Ipratropium (Duoneb 3.0-0.5 Mg/3 Ml) 3 ml NEB ONETIME ONE Stop: 03/20/18 13:30 Last Admin: 03/20/18 14:11 Dose: 3 ml Enoxaparin Sodium (Lovenox) 30 mg SUBCUT DAILY [facility] Last Admin: 03/21/18 08:21 Dose: 30 mg Enoxaparin Sodium (Lovenox) 50 mg SUBCUT ONETIME ONE Stop: 03/21/18 10:31 Last Admin: 03/21/18 11:51 Dose: 50 mg Famotidine (Pepcid) 20 mg PO BID [facility] Last Admin: 03/21/18 20:40 Dose: Not Given Furosemide (Lasix) 20 mg IVPUSH NOW ONE Stop: 03/20/18 13:30 Last Admin: 03/20/18 14:04 Dose: 20 mg Sodium Chloride (Normal Saline) 1,000 mls @ 999 mls/hr IV ONETIME [facility] Last Admin: 03/20/18 14:43 Dose: 999 mls/hr Sodium Chloride (Normal Saline) 1,000 mls @ 999 mls/hr IV ONETIME ONE Stop: 03/20/18 16:51 Last Admin: 03/20/18 15:57 Dose: 999 mls/hr Insulin Human Regular 100 unit (/ Sodium Chloride) 100 mls @ 0.5 mls/hr IV TITRATE [facility]; Protocol Last Titration: 03/20/18 19:05 Dose: 6 units/hr, 6 mls/hr Sodium Chloride (Normal Saline) Confirm Administered Dose 100 mls @ as directed .ROUTE .STK-MED ONE Stop: 03/20/18 17:04 Last Admin: 03/20/18 17:25 Dose: Not Given Sodium Chloride (Normal Saline) 1,000 mls @ 999 mls/hr IV ONETIME ONE Stop: 03/20/18 18:22 Last Admin: 03/20/18 17:39 Dose: 999 mls/hr Sodium Chloride (Normal Saline) 1,000 mls @ 100 mls/hr IV ASDIRECTED [facility] Last Admin: 03/21/18 06:45 Dose: 100 mls/hr Magnesium Sulfate 2 gm/ Premix 50 mls @ 25 mls/hr IV ONETIME ONE Stop: 03/21/18 12:14 Last Admin: 03/21/18 11:52 Dose: 25 mls/hr Insulin Human Regular (Humulin R) 5 unit IVPUSH ONETIME ONE; Protocol Stop: 03/20/18 14:18 Last Admin: 03/20/18 14:45 Dose: 5 units Insulin Human Regular (Humulin R) 5 unit IVPUSH ONETIME ONE; Protocol Stop: 03/20/18 16:13 Last Admin: 03/20/18 16:17 Dose: 5 units Metoprolol Succinate (Toprol Xl) 50 mg PO DAILY [facility] Morphine Sulfate (Morphine) 2 mg IVPUSH Q2H PRN PRN Reason: Pain (severe 7-10) Stop: 03/21/18 19:14 - Exam Quality Assessment: DVT Prophylaxis, Restraints General: Alert, Oriented, No Acute Distress HEENT: Pupils Equal, Pupils Reactive, EOMI Neck: Trachea Midline, No JVD Lungs: Normal Respiratory Effort Cardiovascular: Regular Rate GI/Abdominal Exam: Normal Bowel Sounds, Soft, Non-Tender, No Organomegaly, No Distention (Male) Exam: Deferred Back Exam: Normal Inspection Extremities: Normal Inspection, Non-Tender, Normal Capillary Refill Skin: Warm Neurological: No New Focal Deficit Psy/Mental Status: Alert, Normal Affect, Normal Mood - Problem List Review Problem List Initiated/Reviewed/Updated: Yes - My Orders Last 24 Hours: My Active Orders 03/21/18 10:03 Nitroglycerin [Nitrostat] 0.4 mg SL ASDIRECTED PRN 03/21/18 10:05 Albuterol [Proventil HFA] 0 gm INH Q4H PRN 03/21/18 10:15 Diltiazem [Dilacor XR] 240 mg PO DAILY 03/21/18 13:54 Blood Culture x2 Reflex Set [OM.PC] Stat 03/21/18 14:28 CULTURE BLOOD [BC] Stat 03/21/18 14:35 CULTURE BLOOD [BC] Stat 03/21/18 16:00 CXR [Chest 2V] [CR] Routine 03/21/18 17:23 Consult to Case Management/Day Worker [CONS] Routine 03/21/18 21:00 Doxycycline [Vibramycin] 100 mg Sodium Chloride 0.9% [Normal Saline] 100 ml IV Q12HR Metoprolol Tartrate [Lopressor] 50 mg PO Q12H Sertraline [Zoloft] 50 mg PO BEDTIME Tamsulosin [Flomax] 0.4 mg PO BID 03/21/18 Dinner ADA Diabetic [[employer] Diet] [DIET] 03/22/18 09:00 Allopurinol [Zyloprim] 150 mg PO DAILY Clopidogrel [Plavix] 75 mg PO DAILY Enoxaparin [Lovenox] 80 mg SUBCUT DAILY Famotidine [Pepcid] 20 mg PO DAILY - Plan Plan:: Assessment/Plan: Acute: SOB with persistent dry cough; started Doxycycline, day 2 * Symptoms x 1 week; Was seen at walk-in clinic 3x and given numerous Abx without relief * Per SW, was reportedly given 2 Z-Paks and Amoxicillin * Risk factor: h/o COPD * No recent sick contacts * CXR in ED shows nothing acute; pending formal read * Mycoplasma negative * RVP, Strep pneumo pending * CT chest pending * RT/Duonebs/IS/Acapella Hyperglycemia * Risk factor: h/o DM2, medical non-compliance (pt states he does not check his BS at home consistently) * 630--> 381--> 296 * Insulin Sliding Scale * Blood Glucose Checks QIDACBED * 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 * Pt unsure as to why he may be dehydrated * Anion Gap 17.9 * IVF * Monitor GRETA * Acute on Chronic (h/o CKD III) * Likely 2/2 above * GFR 23, BUN 49, Cr 2.7-->1.7 * IVF * Avoid nephrotoxic drugs Elevated Troponin * Likely leak 2/2 CHF; asymptomatic * 0.182--> 0.174 * EKG in ED shows no ST elevation * Serial troponins * Lipid panel pending * ECHO 08/14/17: LVEF 45-50% * Repeat ECHO pending Chronic: HTN HLD CHF Arrhythmia COPD CKD III GERD Arthritis DM2 * Microalbumin pending Overweight * Dietary Consult * Recommend [place] sleep study outpt Plan: Medical Floor on telemetry Respiratory droplet precautions Routine AM Labs NPO; advance to clear liquid in AM DVT/GI prophylaxis Code Status: Full; PCP: Dr. Chano Holguin Elevated Tn, query ARF component; doubt CHF; unable to perform CTA with poor renal function. Check D dimer; serial TnI/CkMb Venous doppler; Lovenox as scheduled
[2018-03-22] MEDS ORDERED: Furosemide 20 MG/2 ML VIAL IVPUSH ONE (10:35)
--- NOTE | 2018-03-22 10:49 | CR ---
Chest: 2 views of the chest were obtained. Comparison: Previous chest x-ray of 03/20/18. Heart size and mediastinum are within normal limits. Lungs are clear with no acute parenchymal change. Slight degenerative spurring is noted within the spine with mild scattered disc space narrowing. Impression: 1. Incidental findings. Nothing acute is seen. Diagnostic code #2
[2018-03-22] MEDS ORDERED: Insulin Lispro 100 UNIT/ML 10 ML VIAL SUBCUT SCH (11:30)
[2018-03-22] MEDS ORDERED: Acetaminophen/HYDROcodone 325-5 MG Tab PO PRN (14:22)
[2018-03-22] MEDS: Sertraline 50 MG Tab PO SCH (21:14)
[2018-03-22] MEDS: Temazepam 7.5 MG Cap PO PRN (21:14)
[2018-03-23 06:55] LABS: HEMOGLOBIN A1C 10.3 % (4.50-6.20)
[2018-03-23] MEDS: Insulin Lispro 100 Unit/ML 3 ML KwikPen SUBCUT SCH ×2 (07:38→11:43)
--- NOTE | 2018-03-23 08:14 | US ---
Bilateral lower extremity deep venous ultrasound: Duplex and color flow imaging was obtained of the right and left common femoral, proximal greater saphenous, superficial femoral, popliteal, posterior tibial and peroneal veins. Comparison: No prior venous exam. Findings: Normal phasic flow, augmentation and compression are seen. Impression: 1. No evidence of deep venous thrombosis within the right or left lower extremities. Diagnostic code #1
[2018-03-23] MEDS: Doxycycline 100 MG in Sodium Chloride 0.9% 100 ML IV SCH (08:45)
[2018-03-23] MEDS: Allopurinol 300 MG Tab PO SCH (08:50)
[2018-03-23] MEDS: Clopidogrel 75 MG Tab PO SCH (08:50)
[2018-03-23] MEDS: Famotidine 20 MG Tab PO SCH (08:51)
[2018-03-23] MEDS: Tamsulosin 0.4 MG Cap.ER PO SCH (08:51)
[2018-03-23] MEDS: Enoxaparin 80 MG/0.8 ML Syringe SUBCUT SCH (08:52)
[2018-03-23] MEDS: Metoprolol Tartrate 50 MG Tab PO SCH (08:56)
[2018-03-23] MEDS: Diltiazem 240 MG Cap.ER PO SCH (08:56)
--- NOTE | 2018-03-23 09:43 | CT ---
CT chest Technique: Multiple axial sections were obtained from above the dome of the diaphragm inferiorly through the lung bases. Intravenous contrast was not utilized. Comparison: Prior chest CT of 07/10/17. Findings: Mediastinum and hilar regions show no adenopathy or mass. Prominent coronary artery calcification or possibly stent is seen. No pericardial thickening is seen. Soft tissue abnormality is noted next to the lower esophagus within the lower chest which appears without change from prior chest CT and therefore felt to be incidental. Small portion of the visualized upper abdominal structures are within normal limits. Calcified granuloma is noted within the left upper chest. Lungs otherwise are clear. No pleural effusions or pneumothorax is seen. Mild degenerative change scattered throughout the thoracic spine. Impression: 1. Findings felt to be incidental as noted above. Nothing acute is appreciated on noncontrast CT study of the chest. Diagnostic code #2
[2018-03-23] MEDS ORDERED: Magnesium Sulfate/Water 4 GM in Premix Bag 1 BAG IV ONE (10:30)
--- NOTE | 2018-03-23 16:12 | PCM.DCSUM1 ---
Discharge Summary - Hospital Course HPI Initial Comments: 73-year-old male has come in with complaint of weak, dizzy, short of breath. He states this all started about a week ago. He denies chest discomfort. He has not been coughing any more than usual. He has had no fever chills nausea or vomiting. He is more short of breath with ambulation. He also is diabetic. He states "I take my insulin every night". He does not check blood sugars for himself. He states "I got out of the habit". He does not smoke. Diagnosis: Stroke: No Modified [place] Scale: No Symptoms at All Modified [place] Scale Score: 0 - Discharge Data Discharge Date: 03/23/18 (ADMIT 03/20/18) Discharge Disposition: Home, Self-Care 01 Condition: Good - Discharge Diagnosis/Problem(s) (1) GRETA (acute kidney injury) SNOMED Code(s): 12125118 ICD Code: N17.9 - ACUTE KIDNEY FAILURE, UNSPECIFIED Status: Acute Priority: High Current Visit: Yes (2) SOB (shortness of breath) SNOMED Code(s): 100604811 ICD Code: R06.02 - SHORTNESS OF BREATH Status: Acute Priority: High Current Visit: Yes (3) Dehydration SNOMED Code(s): 61345349 ICD Code: E86.0 - DEHYDRATION Status: Acute Priority: High Current Visit: Yes (4) Hyperglycemia SNOMED Code(s): 90371408 ICD Code: R73.9 - HYPERGLYCEMIA, UNSPECIFIED Status: Acute Priority: High Current Visit: Yes (5) Elevated troponin SNOMED Code(s): 417647468, 224611087, 744688160 ICD Code: R74.8 - ABNORMAL LEVELS OF OTHER SERUM ENZYMES Status: Acute Priority: High Current Visit: Yes (6) Cognitive impairment SNOMED Code(s): 600222859 ICD Code: R41.89 - OTH SYMPTOMS AND SIGNS W COGNITIVE FUNCTIONS AND AWARENESS Status: Acute Priority: High Current Visit: Yes - Patient Summary/Data Operative Procedure(s) Performed: none Complications: none Consults: Consultations 03/20/18 19:13 Consult to Diabetic Nurse Specialist [CONS] Routine Respiratory Care Assess and Treatment [CONS] Routine 03/20/18 19:52 Consult to Dietary [Consult to Nightclub Manager] [CONS] Routine 03/21/18 17:23 Consult to Case Management/Blueprint Reproducer [CONS] Routine 03/23/18 10:54 Consult to Speech Language Pathology [NEEDLE LOOM SETTER Evaluation and Treatment] [CONS] Routine Labs Pending at D/C: Respiratory Viral panel, Strep pneumo, ECHO Recommended Follow-up Testing/Procedures: Outpatient pulmonary function test on Friday, April 08 at 12:00 noon. F/U with PCP in 7 days -Recommend Outpt Obstructive Sleep Apnea sleep study F/U with Ehr Trainer outpt Planned Operative Procedure(s) after DC: none Hospital Course: Assessment/Plan: Acute: SOB with persistent dry cough; started Doxycycline, day 3, Improving * Symptoms x 1 week; Was seen at walk-in clinic 3x and given numerous Abx without relief * Per SW, was reportedly given 2 Z-Paks and Amoxicillin * Risk factor: h/o COPD * No recent sick contacts * CXR in ED shows nothing acute * Mycoplasma negative * RVP, Strep pneumo pending * CT chest shows nothing acute * RT/Duonebs/IS/Acapella Hyperglycemia 2/2 Uncontrolled DM2, Improving * Risk factor: h/o DM2, medical non-compliance (pt states he does not check his BS at home consistently) * 630--> 381--> 296 * A1C 10.3 * Insulin Sliding Scale * Blood Glucose Checks QIDACBED * Ehr Trainer Elevated Troponin, Improving --> Query ARF component; doubt CHF * Likely leak 2/2 CHF; asymptomatic * 0.182--> 0.174--> 0.143 * EKG in ED shows no ST elevation * Serial troponins * Lipid panel: * Elevated LDL 105 * F/u with PCP if want to start Statin * ECHO 08/14/17: LVEF 45-50% * Repeat ECHO pending; LVEF in preliminary report looks to be around 61% * Unable to perform CTA with poor renal function * D dimer 1.58: * Venous doppler--> No evidence of deep venous thrombosis within the right or left lower extremities. Cognitive Impairment * Daughter has been concerned; he is not remembering to check sugars or take medications * NEEDLE LOOM SETTER cog eval: * Borderline mild cognitive impairment/borderline dementia * Recommend clock with date to remember when to take medications * Recommend AL * CM/SW to provide community resources and information regarding condition Resolved: GRETA * Acute on Chronic (h/o CKD III) * Likely 2/2 above * GFR 23--> 46, BUN 49--> 27, Cr 2.7-->1.5 * IVF * Avoid nephrotoxic drugs Dehydration * Pt unsure as to why he may be dehydrated * Anion Gap 17.9--> 15.2 * IVF * Monitor Chronic: HTN HLD CHF Arrhythmia COPD CKD III GERD Arthritis DM2 Overweight * Dietary Consult * Recommend [place] sleep study outpt Plan: Medical Floor on telemetry Respiratory droplet precautions Routine AM Labs NPO; advance to clear liquid in AM DVT/GI prophylaxis Code Status: Full; PCP: Dr. Chano Mayo did OK here after being admitted for SOB with persistent dry cough as well as hyperglycemia. Workup for cough so far has been negative. Still awaiting RVP and strep pneumo. ECHO results pending. Cough, clinical symptoms and labs have all improved since being started on Doxycycline. Will send home with prescription of Doxycycline for 8 more days for completion of treatment for suspected Bronchitis, as well as Florastor for probiotic. His diabetes is also currently not controlled, as his A1C was found to be 10.3 and his sugars elevated in the 600's. Diabetic diet and blood sugar checks are recommended at home. Slightly elevated LDL here (105), recommend f/u with PCP regarding possible start on statin. It is recommended he f/u with PCP in 7 days ( recommend setting up outpt [place]ER[place] sleep study at that time), tobacco prevention health educator outpt, and have outpt PFT done. NEEDLE LOOM SETTER cognitive eval today showed that he does have borderline mild cognitive impairment/dementia. SW/CM to provide information to family and community resources. NEEDLE LOOM SETTER recommends Assisted living at this time, but pt and family would rather not at this time. He will be D/C'd home today. - Patient Instructions Diet: Diabetic Diet Activity: As Tolerated Driving: May Drive Today Showering/Bathing: May Shower Notify Provider of: Fever, Increased Pain, Nausea and/or Vomiting - Discharge Plan *PRESCRIPTION DRUG MONITORING PROGRAM REVIEWED*: Not Applicable *COPY OF PRESCRIPTION DRUG MONITORING REPORT IN PATIENT LEONID: Not Applicable Prescriptions/Med Rec: Doxycycline [Vibramycin] 100 mg PO BID 8 Days #16 cap Saccharomyces Boulardii [Florastor] 250 mg PO BID 18 Days #36 capsule Home Medications: Home Meds Albuterol Sulfate [Proair Hfa] 2 puff IH Q4H PRN 12/09/16 [History] Allopurinol [Zyloprim] 150 mg PO DAILY 12/09/16 [History] Clopidogrel [Plavix] 75 mg PO DAILY 12/09/16 [History] Diltiazem HCl [Cartia Xt] 240 mg PO DAILY 12/09/16 [History] Hydrochlorothiazide 25 mg PO DAILY 12/09/16 [History] Insulin Glarg,Human.Rec.Analog [LantUS Solostar] 32 units SUBCUT BEDTIME [History] LORazepam [Ativan] 1 mg PO BEDTIME PRN 12/09/16 [History] Sertraline HCl [Zoloft] 50 mg PO BEDTIME 12/09/16 [History] Tamsulosin [Flomax] 0.4 mg PO BID 12/09/16 [History] metFORMIN HCl [Glucophage] 1,500 mg PO DAILY 12/09/16 [History] Metoprolol Succinate 50 mg PO DAILY 07/10/17 [History] Nitroglycerin 0.4 mg PO ASDIRECTED PRN 07/10/17 [History] Indomethacin 25 mg PO TID 03/20/18 [History] Doxycycline [Vibramycin] 100 mg PO BID 8 Days #16 cap 03/23/18 [Rx] Saccharomyces Boulardii [Florastor] 250 mg PO BID 18 Days #36 capsule 03/23/18 [ Rx] Oxygen Therapy Mode: Room Air Patient Handouts: Hyperglycemia, [id number], Acute Bronchitis, Adult, Easy-to -Read, Mild Neurocognitive Disorder, Dementia, [id number] Forms: ED Department Discharge Referrals: Chhaya Sahu [Other] - 03/31/18 2:00 pm (Ehr Trainer) Chano Holguin Jr, MD [Primary Care Provider] - 03/31/18 1:30 pm (Hospital follow -up appointment.) - Discharge Summary/Plan Comment DC Time >30 min.: Yes (40) - General Info Date of Service: 03/23/18 Admission Dx/Problem (Free Text: Admission Diagnosis/Problem Admission Diagnosis/Problem Hyperglycemia Subjective Update: In to see Gael. He is sitting up in bed getting dressed for discharge. He states he is feeling much better today. Workup so far has been negative. Still awaiting RVP. Cough, clinical symptoms and labs have all improved since being started on Doxycycline. Will send home with prescription of Doxycycline for 8 more days for completion of treatment for suspected Bronchitis, as well as Florastor for probiotic. It is recommended he f/u with PCP in 7 days, tobacco prevention health educator outpt, and have outpt PFT done. NEEDLE LOOM SETTER cognitive eval today showed that he does have borderline mild cognitive impairment/dementia. SW/CM to provide information to family and community resources. NEEDLE LOOM SETTER recommends Assisted living at this time, but pt and family would rather not at this time. He will be D/C'd home today. Functional Status: Reports: Pain Controlled, Tolerating Diet, Ambulating, Urinating - Review of Systems General: Reports: No Symptoms HEENT: Reports: Glasses Pulmonary: Reports: Shortness of Breath, Cough (improving) Cardiovascular: Reports: Dyspnea on Exertion Gastrointestinal: Reports: No Symptoms. Denies: Abdominal Pain, Diarrhea, Nausea, Vomiting Genitourinary: Reports: No Symptoms Musculoskeletal: Reports: No Symptoms Skin: Reports: No Symptoms Neurological: Reports: No Symptoms Psychiatric: Reports: No Symptoms - Patient Data Vitals - Most Recent: Last Vital Signs Temp 98.1 F 03/23/18 14:54 Pulse 80 03/23/18 08:56 Resp 16 03/23/18 14:54 BP 138/69 03/23/18 14:54 Pulse Ox 95 03/23/18 14:54 Weight - Most Recent: 196 lb 12.801 oz I&O - Last 24 hours: Intake & Output 03/23/18 03/23/18 03/23/18 06:59 14:59 22:59 Intake Total 300 300 180 Output Total 500 Balance -200 300 180 Lab Results - Last 24 hrs: Laboratory Results - last 24 hr 03/22/18 03/22/18 03/22/18 Range/Units 16:51 17:55 17:55 WBC (4.23-9.07) K/mm3 RBC (4.63-6.08) M/mm3 Hgb (13.7-17.5) gm/L Hct (40.1-51.0) % MCV (79.0-92.2) fl MCH (25.7-32.2) pg MCHC (32.2-35.5) g/dl RDW Std Deviation (35.1-43.9) fL Plt Count (163-337) K/mm3 MPV (9.4-12.3) fl Neut % (Auto) (34.0-67.9) % Lymph % (Auto) (21.8-53.1) % Reagan % (Auto) (5.3-12.2) % Eos % (Auto) (0.8-7.0) Baso % (Auto) (0.1-1.2) % Neut # (Auto) (1.78-5.38) K/mm3 Lymph # (Auto) (1.32-3.57) K/mm3 Reagan # (Auto) (0.30-0.82) K/mm3 Eos # (Auto) (0.04-0.54) K/mm3 Baso # (Auto) (0.01-0.08) K/mm3 Sodium (136-145) mEq/L Potassium (3.5-5.1) mEq/L Chloride (98-107) mEq/L Carbon Dioxide (21-32) mEq/L Anion Gap (5-15) BUN (7-18) mg/dL Creatinine (0.7-1.3) mg/dL Est Cr Clr Drug Dosing mL/min Estimated GFR (MDRD) (>60) mL/min BUN/Creatinine Ratio (14-18) Glucose (83-115) mg/dL POC Glucose 248 H (83-110) mg/dL Hemoglobin A1c (4.50-6.20) % Calcium (8.5-10.1) mg/dL Magnesium (1.8-2.4) mg/dl Troponin I 0.159 H* (0.00-0.056) ng/mL C-Reactive Protein (<1.0) mg/dL NT-Pro-B Natriuret Pep 390 H (0-125) pg/mL TSH 3rd Generation (0.358-3.74) uIU/mL 03/22/18 03/23/18 03/23/18 Range/Units 21:19 05:45 05:45 WBC 8.31 (4.23-9.07) K/mm3 RBC 4.71 (4.63-6.08) M/mm3 Hgb 13.7 (13.7-17.5) gm/L Hct 41.5 (40.1-51.0) % MCV 88.1 (79.0-92.2) fl MCH 29.1 (25.7-32.2) pg MCHC 33.0 (32.2-35.5) g/dl RDW Std Deviation 42.5 (35.1-43.9) fL Plt Count 178 (163-337) K/mm3 MPV 10.9 (9.4-12.3) fl Neut % (Auto) 63.9 (34.0-67.9) % Lymph % (Auto) 25.4 (21.8-53.1) % Reagan % (Auto) 7.5 (5.3-12.2) % Eos % (Auto) 1.8 (0.8-7.0) Baso % (Auto) 0.2 (0.1-1.2) % Neut # (Auto) 5.31 (1.78-5.38) K/mm3 Lymph # (Auto) 2.11 (1.32-3.57) K/mm3 Reagan # (Auto) 0.62 (0.30-0.82) K/mm3 Eos # (Auto) 0.15 (0.04-0.54) K/mm3 Baso # (Auto) 0.02 (0.01-0.08) K/mm3 Sodium 138 (136-145) mEq/L Potassium 4.2 (3.5-5.1) mEq/L Chloride 103 (98-107) mEq/L Carbon Dioxide 24 (21-32) mEq/L Anion Gap 15.2 H (5-15) BUN 27 H (7-18) mg/dL Creatinine 1.5 H (0.7-1.3) mg/dL Est Cr Clr Drug Dosing 44.61 mL/min Estimated GFR (MDRD) 46 (>60) mL/min BUN/Creatinine Ratio 18.0 (14-18) Glucose 213 H (83-115) mg/dL POC Glucose 332 H (83-110) mg/dL Hemoglobin A1c (4.50-6.20) % Calcium 8.7 (8.5-10.1) mg/dL Magnesium 1.4 L (1.8-2.4) mg/dl Troponin I 0.143 H* (0.00-0.056) ng/mL C-Reactive Protein 0.7 (<1.0) mg/dL NT-Pro-B Natriuret Pep (0-125) pg/mL TSH 3rd Generation (0.358-3.74) uIU/mL 03/23/18 03/23/18 03/23/18 Range/Units 05:45 05:45 05:45 WBC (4.23-9.07) K/mm3 RBC (4.63-6.08) M/mm3 Hgb (13.7-17.5) gm/L Hct (40.1-51.0) % MCV (79.0-92.2) fl MCH (25.7-32.2) pg MCHC (32.2-35.5) g/dl RDW Std Deviation (35.1-43.9) fL Plt Count (163-337) K/mm3 MPV (9.4-12.3) fl Neut % (Auto) (34.0-67.9) % Lymph % (Auto) (21.8-53.1) % Reagan % (Auto) (5.3-12.2) % Eos % (Auto) (0.8-7.0) Baso % (Auto) (0.1-1.2) % Neut # (Auto) (1.78-5.38) K/mm3 Lymph # (Auto) (1.32-3.57) K/mm3 Reagan # (Auto) (0.30-0.82) K/mm3 Eos # (Auto) (0.04-0.54) K/mm3 Baso # (Auto) (0.01-0.08) K/mm3 Sodium (136-145) mEq/L Potassium (3.5-5.1) mEq/L Chloride (98-107) mEq/L Carbon Dioxide (21-32) mEq/L Anion Gap (5-15) BUN (7-18) mg/dL Creatinine (0.7-1.3) mg/dL Est Cr Clr Drug Dosing mL/min Estimated GFR (MDRD) (>60) mL/min BUN/Creatinine Ratio (14-18) Glucose (83-115) mg/dL POC Glucose 229 H (83-110) mg/dL Hemoglobin A1c 10.30 H (4.50-6.20) % Calcium (8.5-10.1) mg/dL Magnesium (1.8-2.4) mg/dl Troponin I (0.00-0.056) ng/mL C-Reactive Protein (<1.0) mg/dL NT-Pro-B Natriuret Pep (0-125) pg/mL TSH 3rd Generation 1.104 (0.358-3.74) uIU/mL 03/23/18 03/23/18 Range/Units 07:36 11:41 WBC (4.23-9.07) K/mm3 RBC (4.63-6.08) M/mm3 Hgb (13.7-17.5) gm/L Hct (40.1-51.0) % MCV (79.0-92.2) fl MCH (25.7-32.2) pg MCHC (32.2-35.5) g/dl RDW Std Deviation (35.1-43.9) fL Plt Count (163-337) K/mm3 MPV (9.4-12.3) fl Neut % (Auto) (34.0-67.9) % Lymph % (Auto) (21.8-53.1) % Reagan % (Auto) (5.3-12.2) % Eos % (Auto) (0.8-7.0) Baso % (Auto) (0.1-1.2) % Neut # (Auto) (1.78-5.38) K/mm3 Lymph # (Auto) (1.32-3.57) K/mm3 Reagan # (Auto) (0.30-0.82) K/mm3 Eos # (Auto) (0.04-0.54) K/mm3 Baso # (Auto) (0.01-0.08) K/mm3 Sodium (136-145) mEq/L Potassium (3.5-5.1) mEq/L Chloride (98-107) mEq/L Carbon Dioxide (21-32) mEq/L Anion Gap (5-15) BUN (7-18) mg/dL Creatinine (0.7-1.3) mg/dL Est Cr Clr Drug Dosing mL/min Estimated GFR (MDRD) (>60) mL/min BUN/Creatinine Ratio (14-18) Glucose (83-115) mg/dL POC Glucose 234 H 332 H (83-110) mg/dL Hemoglobin A1c (4.50-6.20) % Calcium (8.5-10.1) mg/dL Magnesium (1.8-2.4) mg/dl Troponin I (0.00-0.056) ng/mL C-Reactive Protein (<1.0) mg/dL NT-Pro-B Natriuret Pep (0-125) pg/mL TSH 3rd Generation (0.358-3.74) uIU/mL YESIKA Results - Last 24 hrs: Microbiology 03/21/18 14:35 Aerobic Blood Culture - Preliminary Blood - Venous - Lab Draw NO GROWTH AFTER 2 DAYS Anaerobic Blood Culture - Preliminary NO GROWTH AFTER 2 DAYS 03/21/18 14:28 Aerobic Blood Culture - Preliminary Blood - Venous NO GROWTH AFTER 2 DAYS Anaerobic Blood Culture - Preliminary NO GROWTH AFTER 2 DAYS Med Orders - Current: Current Medications Acetaminophen (Tylenol) 650 mg PO Q4H PRN PRN Reason: Pain (Mild 1-3)/fever Hydrocodone Bitart/Acetaminophen ([place] 325-5 Mg) 1 tab PO Q6H PRN PRN Reason: Pain (moderate 4-6) Albuterol (Proventil Neb Soln) 2.5 mg NEB Q2H PRN PRN Reason: Shortness Of Breath/wheezing Albuterol (Proventil Hfa) 0 gm INH Q4H PRN PRN Reason: Wheezing Last Admin: 03/21/18 18:19 Dose: 2 puff Albuterol/Ipratropium (Duoneb 3.0-0.5 Mg/3 Ml) 3 ml NEB Q4H PRN PRN Reason: Shortness Of Breath/wheezing Allopurinol (Zyloprim) 150 mg PO DAILY [facility] Last Admin: 03/23/18 08:50 Dose: 150 mg Bisacodyl (Dulcolax) 5 mg PO DAILY PRN PRN Reason: Constipation Clopidogrel Bisulfate (Plavix) 75 mg PO DAILY [facility] Last Admin: 03/23/18 08:50 Dose: 75 mg Dextrose/Water (Dextrose 50% In Water) 50 ml IVPUSH ASDIRECTED PRN PRN Reason: Hypoglycemia Diltiazem HCl (Dilacor Xr) 240 mg PO DAILY [facility] Last Admin: 03/23/18 08:56 Dose: 240 mg Docusate Sodium (Colace) 100 mg PO BID PRN PRN Reason: Constipation Doxycycline Hyclate (Vibramycin) 100 mg PO BID [facility] Enoxaparin Sodium (Lovenox) 90 mg SUBCUT BID [facility] Famotidine (Pepcid) 20 mg PO DAILY [facility] Last Admin: 03/23/18 08:51 Dose: 20 mg Insulin Human Lispro (Humalog) 0 unit SUBCUT QIDACANDBED [facility]; Protocol Last Admin: 03/23/18 11:43 Dose: 12 units Magnesium Hydroxide (Milk Of Magnesia) 30 ml PO Q12H PRN PRN Reason: Constipation Metoprolol Tartrate (Lopressor) 50 mg PO Q12H [facility] Last Admin: 03/23/18 08:56 Dose: 50 mg Nitroglycerin (Nitrostat) 0.4 mg SL ASDIRECTED PRN PRN Reason: Chest Pain Ondansetron HCl (Zofran Odt) 4 mg PO Q4H PRN PRN Reason: nausea, able to take PO Ondansetron HCl (Zofran) 4 mg IV Q4H PRN PRN Reason: Nausea/Vomiting Polyethylene Glycol (Miralax) 17 gm PO DAILY PRN PRN Reason: Constipation Senna/Docusate Sodium (Senna Plus) 1 tab PO BID PRN PRN Reason: Constipation Sertraline HCl (Zoloft) 50 mg PO BEDTIME [facility] Last Admin: 03/22/18 21:14 Dose: 50 mg Sodium Chloride (Saline Flush) 10 ml FLUSH ASDIRECTED PRN PRN Reason: Keep Vein Open Last Admin: 03/20/18 14:04 Dose: 10 ml Tamsulosin HCl (Flomax) 0.4 mg PO BID [facility] Last Admin: 03/23/18 08:51 Dose: 0.4 mg Temazepam (Restoril) 7.5 mg PO BEDTIME PRN PRN Reason: Sleep Last Admin: 03/22/18 21:14 Dose: 7.5 mg Discontinued Medications Hydrocodone Bitart/Acetaminophen ([place] 325-5 Mg) 1 tab PO Q4H PRN PRN Reason: Pain (moderate 4-6) Last Admin: 03/21/18 20:38 Dose: 1 tab Albuterol/Ipratropium (Duoneb 3.0-0.5 Mg/3 Ml) 3 ml NEB ONETIME ONE Stop: 03/20/18 13:30 Last Admin: 03/20/18 14:11 Dose: 3 ml Enoxaparin Sodium (Lovenox) 30 mg SUBCUT DAILY [facility] Last Admin: 03/21/18 08:21 Dose: 30 mg Enoxaparin Sodium (Lovenox) 80 mg SUBCUT DAILY [facility] Last Admin: 03/23/18 08:52 Dose: 80 mg Enoxaparin Sodium (Lovenox) 50 mg SUBCUT ONETIME ONE Stop: 03/21/18 10:31 Last Admin: 03/21/18 11:51 Dose: 50 mg Famotidine (Pepcid) 20 mg PO BID [facility] Last Admin: 03/21/18 20:40 Dose: Not Given Furosemide (Lasix) 20 mg IVPUSH NOW ONE Stop: 03/20/18 13:30 Last Admin: 03/20/18 14:04 Dose: 20 mg Furosemide (Lasix) 20 mg IVPUSH NOW ONE Stop: 03/22/18 10:36 Last Admin: 03/22/18 10:38 Dose: 20 mg Sodium Chloride (Normal Saline) 1,000 mls @ 999 mls/hr IV ONETIME [facility] Last Admin: 03/20/18 14:43 Dose: 999 mls/hr Sodium Chloride (Normal Saline) 1,000 mls @ 999 mls/hr IV ONETIME ONE Stop: 03/20/18 16:51 Last Admin: 03/20/18 15:57 Dose: 999 mls/hr Insulin Human Regular 100 unit (/ Sodium Chloride) 100 mls @ 0.5 mls/hr IV TITRATE SRAVANI; Protocol Last Titration: 03/20/18 19:05 Dose: 6 units/hr, 6 mls/hr Sodium Chloride (Normal Saline) Confirm Administered Dose 100 mls @ as directed .ROUTE .STK-MED ONE Stop: 03/20/18 17:04 Last Admin: 03/20/18 17:25 Dose: Not Given Sodium Chloride (Normal Saline) 1,000 mls @ 999 mls/hr IV ONETIME ONE Stop: 03/20/18 18:22 Last Admin: 03/20/18 17:39 Dose: 999 mls/hr Sodium Chloride (Normal Saline) 1,000 mls @ 100 mls/hr IV ASDIRECTED [facility] Last Admin: 03/21/18 06:45 Dose: 100 mls/hr Magnesium Sulfate 2 gm/ Premix 50 mls @ 25 mls/hr IV ONETIME ONE Stop: 03/21/18 12:14 Last Admin: 03/21/18 11:52 Dose: 25 mls/hr Doxycycline Hyclate 100 mg/ (Sodium Chloride) 100 mls @ 100 mls/hr IV Q12HR [facility] Last Admin: 03/23/18 08:45 Dose: 100 mls/hr Magnesium Sulfate 4 gm/ Premix 100 mls @ 25 mls/hr IV ONETIME ONE Stop: 03/23/18 14:29 Last Admin: 03/23/18 10:39 Dose: 25 mls/hr Insulin Human Lispro (Humalog) 0 unit SUBCUT QIDACANDBED [facility]; Protocol Last Admin: 03/22/18 11:38 Dose: Not Given Insulin Human Lispro (Humalog) 0 unit SUBCUT QIDACANDBED [facility]; Protocol Last Admin: 03/22/18 11:38 Dose: Not Given Insulin Human Regular (Humulin R) 5 unit IVPUSH ONETIME ONE; Protocol Stop: 03/20/18 14:18 Last Admin: 03/20/18 14:45 Dose: 5 units Insulin Human Regular (Humulin R) 5 unit IVPUSH ONETIME ONE; Protocol Stop: 03/20/18 16:13 Last Admin: 03/20/18 16:17 Dose: 5 units Metoprolol Succinate (Toprol Xl) 50 mg PO DAILY [facility] Morphine Sulfate (Morphine) 2 mg IVPUSH Q2H PRN PRN Reason: Pain (severe 7-10) Stop: 03/21/18 19:14 - Exam Quality Assessment: Reports: DVT Prophylaxis General: Reports: Alert, Oriented, Cooperative, No Acute Distress HEENT: Reports: Pupils Equal, Pupils Reactive, EOMI, Mucous Membr. Moist/[place] Neck: Reports: Supple Lungs: Reports: Clear to Auscultation, Normal Respiratory Effort Cardiovascular: Reports: Regular Rate, Regular Rhythm GI/Abdominal Exam: Normal Bowel Sounds, Soft, Non-Tender, No Organomegaly, No Distention, No Abnormal Bruit, No Mass, Pelvis Stable (Male) Exam: Deferred Rectal (Males) Exam: Deferred Back Exam: Reports: Normal Inspection Extremities: Normal Inspection, Normal Range of Motion, Non-Tender, No Pedal Edema, Normal Capillary Refill Skin: Reports: Warm, Dry, Intact Neurological: Reports: No New Focal Deficit Psy/Mental Status: Reports: Alert, Normal Affect, Normal Mood
[2018-03-23] MEDS ORDERED: Enoxaparin 100 MG/1 ML Syringe SUBCUT SCH (21:00)
[2018-03-23] MEDS ORDERED: Doxycycline 100 MG Cap PO SCH (21:00)
== END 2018-03-23 16:16 | disposition home or self-care (01) | DRG 638 ==
LOC: JD.ED 12:54 → JD.ICU 17:54
PROVIDERS: ADMIT Internal Medicine Cardiovascular Disease; ATTEND Internal Medicine Cardiovascular Disease
DX: E11.65 Type 2 diabetes mellitus with hyperglycemia (principal); I13.0 Hypertensive heart and chronic kidney disease with heart failure and stage 1 through stage 4 chronic kidney disease, or unspecified chronic kidney disease; N28.9 Disorder of kidney and ureter, unspecified; N17.9 Acute kidney failure, unspecified; I10 Essential (primary) hypertension; J44.9 Chronic obstructive pulmonary disease, unspecified; E86.0 Dehydration; E78.00 Pure hypercholesterolemia, unspecified; K21.9 Gastro-esophageal reflux disease without esophagitis; H54.7 Unspecified visual loss; I50.9 Heart failure, unspecified; R05 Cough; R06.02 Shortness of breath; R53.1 Weakness; R53.83 Other fatigue; E78.5 Hyperlipidemia, unspecified; E11.22 Type 2 diabetes mellitus with diabetic chronic kidney disease; N18.3 Chronic kidney disease, stage 3 (moderate); R74.8 Abnormal levels of other serum enzymes; F03.90 Unspecified dementia, unspecified severity, without behavioral disturbance, psychotic disturbance, mood disturbance, and anxiety; Z79.899 Other long term (current) drug therapy; Z91.19 Patient's noncompliance with other medical treatment and regimen; Z79.4 Long term (current) use of insulin; Z96.652 Presence of left artificial knee joint
CPT/HCPCS: 36415; 36600; 71045; 80053; 82803; 82947 ×3; 83605; 83880; 84484 ×2; 85025; 86140; 86738; 93005; 94640; 96361; 96365; 96375; 96376; 99285; J1815; J1940; J7040 ×3; 71046; 71046-26; 71250; 71250-26; 80048; 80061; 81001; 82044; 82553; 82962; 83036; 83735; 84443; 85379; 87040; 87486; 87581; 87632; 87798; 87804; 87899; 92523-GN; 93308; 93970; 93970-26; 94760; A9270-GY; J1650; J3475; J3490; J7030; J7620-GY

== ENCOUNTER 2021-01-03 14:07 | Emergency (ER) | payer MEDICARE, OTHER ==
[2021-01-03] MEDS ORDERED: Sodium Chloride 0.9% 10 ML Syringe FLUSH PRN (15:36)
[2021-01-03] MEDS ORDERED: methylPREDNISolone Sodium Succinate 125 MG/2 ML SDV IVPUSH PRN (15:36)
[2021-01-03] MEDS ORDERED: EPINEPHrine 1 MG/ML SDV IM PRN (15:36)
[2021-01-03] MEDS ORDERED: diphenhydrAMINE 50 MG/ML SDV IVPUSH PRN (15:36)
[2021-01-03] MEDS ORDERED: Famotidine 20 MG/2 ML SDV IVPUSH PRN (15:36)
[2021-01-03] MEDS ORDERED: Sodium Chloride 0.9% 10 ML Syringe FLUSH SCH (15:45)
--- NOTE | 2021-01-03 16:00 | EDM.PDOC ---
ED HPI GENERAL MEDICAL PROBLEM - General Chief Complaint: General Stated Complaint: SOB Time Seen by Provider: 01/03/21 14:55 Source of Information: Reports: Patient History Limitations: Reports: No Limitations - History of Present Illness INITIAL COMMENTS - FREE TEXT/NARRATIVE: 75-year-old male presents the emergency department today stating he has here for his infusion. He states he was diagnosed with Covid yesterday when he went to the walk-in clinic for complaints of a sinus infection. He was notified that he needed to come over to the hospital. Patient denies any recent fever, chills, nausea, vomiting or diarrhea. He states he is short of breath however he states this has been an issue for the past year or so. He states he has generalized body aches however he contributes this to arthritic pain and age. He does not know when his symptoms started for Covid. He denies smoking history. He tells me that he has no medical problems however then tells me he takes a lot of medications. He cannot remember the name of his primary care provider. 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 - Related Data Allergies Allergy/AdvReac Type Severity Reaction Status Date / Time No Known Allergies Allergy Verified 01/03/21 15:17 Home Meds: Home Meds Allopurinol [Zyloprim] 150 mg PO DAILY 12/09/16 [History] Clopidogrel [Plavix] 75 mg PO DAILY 12/09/16 [History] Hydrochlorothiazide 25 mg PO DAILY 12/09/16 [History] Insulin Glarg,Human.Rec.Analog [LantUS Solostar] 56 units SUBCUT BEDTIME 12/09/16 [History] LORazepam [Ativan] 1 mg PO BEDTIME PRN 12/09/16 [History] Sertraline HCl [Zoloft] 50 mg PO BEDTIME 12/09/16 [History] Tamsulosin [Flomax] 0.4 mg PO BID 12/09/16 [History] dilTIAZem HCL [Cartia Xt] 240 mg PO DAILY 12/09/16 [History] metFORMIN HCl [Glucophage] 1,000 mg PO BID 12/09/16 [History] Metoprolol Succinate 50 mg PO DAILY 07/10/17 [History] Nitroglycerin 0.4 mg PO ASDIRECTED PRN 07/10/17 [History] Indomethacin 25 mg PO TID 03/20/18 [History] Gabapentin [Neurontin] 100 mg PO TID 01/03/21 [History] Isosorbide Mononitrate [Isosorbide Mononitrate ER] 30 mg PO DAILY 01/03/21 [History] Rosuvastatin [Crestor] 20 mg PO BEDTIME 01/03/21 [History] Past Medical History HEENT History: Reports: Impaired Vision, Otitis Media Cardiovascular History: Reports: Arrhythmia, High Cholesterol, Hypertension Respiratory History: Reports: COPD Gastrointestinal History: Reports: GERD Musculoskeletal History: Reports: Arthritis Endocrine/Metabolic History: Reports: Diabetes, Type II - Infectious Disease History Infectious Disease History: Reports: Novel Coronavirus - Past Surgical History GI Surgical History: Reports: Colonoscopy Musculoskeletal Surgical History: Reports: Knee Replacement Other Musculoskeletal Surgeries/Procedures:: Left knee Social & Family History - Family History Family Medical History: No Pertinent Family History - Tobacco Use Tobacco Use Status *Q: Never Tobacco User Second Hand Smoke Exposure: No - Caffeine Use Caffeine Use: Reports: Coffee - Recreational Drug Use Recreational Drug Use: No ED ROS GENERAL - Review of Systems Review Of Systems: Comprehensive ROS is negative, except as noted in HPI. ED EXAM, GENERAL - Physical Exam Exam: See Below Exam Limited By: No Limitations General Appearance: Alert, WD/WN, No Apparent Distress Ears: Normal External Exam, Hearing Grossly Normal Nose: Normal Inspection Throat/Mouth: Normal Inspection, Normal Lips, Normal Voice, No Airway Compromise Head: Atraumatic Neck: Normal Inspection, Supple Respiratory/Chest: No Respiratory Distress, Lungs Clear, Normal Breath Sounds, No Accessory Muscle Use, Chest Non-Tender Cardiovascular: Normal Peripheral Pulses, Regular Rate, Rhythm, No Edema, No Murmur Peripheral Pulses: 2+: Radial (L), Radial (R) GI/Abdominal: Normal Bowel Sounds, Soft, Non-Tender, No Distention (Male) Exam: Deferred Rectal (Males) Exam: Deferred Back Exam: Normal Inspection Extremities: Normal Inspection, Normal Range of Motion, Non-Tender, No Pedal Edema, Normal Capillary Refill Neurological: Alert, Oriented, Normal Cognition Psychiatric: Normal Affect, Normal Mood Skin Exam: Warm, Dry, Intact, Normal Color, No Rash Lymphatic: No Adenopathy Course - Vital Signs Text/Narrative:: As stated above, patient presents as he was directed to come here from being diagnosed with Covid at [facility] yesterday. Physical exam is completely unremarkable and he is hemodynamically stable. O2 saturations are in the mid upper 90s on room air. I do not know when his Covid symptoms started so I have no idea which day of Covid he may be on. I do not know that he would benefit from monoclonal antibodies however he was directed to come here from the walk-in clinic so we will give him these. I have ordered lab studies as well. I spoke with the patient to provide information about Regeneron for himself. I offered her the fax sheet for patients and caregivers for Regeneron to read and review. I stated the therapy has been approved by an emergency use authorization process and has not fully been FDA reviewed or approved. I shared the potential risks from the therapy including risks/adverse reactions. I discussed there are other potential treatment options that are currently not FDA approved to treat COVID-19. Offered opportunity ask questions and all questions were answered. Patient voiced understanding and agreed to proceed with treatment for himself. Last Recorded V/S: Last Vital Signs Temp 96.8 F L 01/03/21 17:21 Pulse 87 01/03/21 18:30 Resp 16 01/03/21 18:30 BP 182/88 H 01/03/21 18:30 Pulse Ox 96 01/03/21 18:30 - Orders/Labs/Meds Orders: Active Orders 24 hr Category Date Time Status Vital Signs [RC] Q15M Care 01/03/21 15:37 Active EPINEPHrine [Adrenalin] Med 01/03/21 15:36 Active 0.3 mg IM ASDIRECTED PRN Famotidine [Pepcid] Med 01/03/21 15:36 Active 20 mg IVPUSH ASDIRECTED PRN Sodium Chloride 0.9% [Saline Flush] Med 01/03/21 15:36 Active 10 ml FLUSH ASDIRECTED PRN Sodium Chloride 0.9% [Saline Flush] Med 01/03/21 15:45 Active 30 ml FLUSH ASDIRECTED diphenhydrAMINE [Benadryl] Med 01/03/21 15:36 Active 50 mg IVPUSH ASDIRECTED PRN methylPREDNISolone Sod Succ [Solu-MEDROL] Med 01/03/21 15:36 Active 125 mg IVPUSH ASDIRECTED PRN Saline Lock Insert [OM.PC] Stat Oth 01/03/21 15:36 Ordered Medication Orders Diphenhydramine HCl (Diphenhydramine 50 Mg/Ml Sdv) 50 mg IVPUSH ASDIRECTED PRN PRN Reason: hypersensitivity reaction Epinephrine HCl (Epinephrine 1 Mg/Ml Sdv) 0.3 mg IM ASDIRECTED PRN PRN Reason: hypersensitivity reaction Famotidine (Famotidine 20 Mg/2 Ml Sdv) 20 mg IVPUSH ASDIRECTED PRN PRN Reason: hypersensitivity reaction Methylprednisolone Sodium Succinate (Methylprednisolone Sodium Succinate 125 Mg/2 Ml Sdv) 125 mg IVPUSH ASDIRECTED PRN PRN Reason: hypersensitivity reaction Sodium Chloride (Sodium Chloride 0.9% 10 Ml Syringe) 30 ml FLUSH ASDIRECTED SRAVANI Last Admin: 01/03/21 17:19 Dose: 30 ml Documented by: MAYE Sodium Chloride (Sodium Chloride 0.9% 10 Ml Syringe) 10 ml FLUSH ASDIRECTED PRN PRN Reason: Keep Vein Open Labs: Laboratory Tests 01/03/21 01/03/21 01/03/21 Range/Units 16:00 16:05 16:05 WBC 8.38 (4.23-9.07) K/mm3 RBC 4.78 (4.63-6.08) M/mm3 Hgb 13.9 (13.7-17.5) gm/dl Hct 41.5 (40.1-51.0) % MCV 86.8 (79.0-92.2) fl MCH 29.1 (25.7-32.2) pg MCHC 33.5 (32.2-35.5) g/dl RDW Std Deviation 40.3 (35.1-43.9) fL Plt Count 236 (163-337) K/mm3 MPV 9.8 (9.4-12.3) fl Neut % (Auto) 78.6 H (34.0-67.9) % Lymph % (Auto) 11.2 L (21.8-53.1) % [place] % (Auto) 8.6 (5.3-12.2) % Eos % (Auto) 1.0 (0.8-7.0) Baso % (Auto) 0.2 (0.1-1.2) % Neut # (Auto) 6.59 H (1.78-5.38) K/mm3 Lymph # (Auto) 0.94 L (1.32-3.57) K/mm3 [place] # (Auto) 0.72 (0.30-0.82) K/mm3 Eos # (Auto) 0.08 (0.04-0.54) K/mm3 Baso # (Auto) 0.02 (0.01-0.08) K/mm3 D-Dimer, Quantitative 1.33 H (0.19-0.50) mg/L Puncture Site ABG pH (7.35-7.45) ABG pCO2 (35.0-45.0) mmHg ABG pO2 (80.0-100.0) mmHg ABG HCO3 (22.0-26.0) meq/L ABG O2 Saturation (96.0-97.0) % ABG Base Excess (-2-2.0) Kaz Test O2 Delivery Device Sodium (136-145) mEq/L Potassium (3.5-5.1) mEq/L Chloride (98-107) mEq/L Carbon Dioxide (21-32) mEq/L Anion Gap (5-15) BUN (7-18) mg/dL Creatinine (0.7-1.3) mg/dL Est Cr Clr Drug Dosing mL/min Estimated GFR (MDRD) (>60) mL/min BUN/Creatinine Ratio (14-18) Glucose (70-99) mg/dL POC Glucose (70-99) mg/dL Hemoglobin A1c 11.9 H ( - 5.6) % Lactic Acid (0.4-2.0) mmol/L Calcium (8.5-10.1) mg/dL Magnesium (1.8-2.4) mg/dL Total Bilirubin (0.2-1.0) mg/dL AST (15-37) U/L ALT (16-63) U/L Alkaline Phosphatase (46-116) U/L C-Reactive Protein (<1.0) mg/dL Total Protein (6.4-8.2) g/dl Albumin (3.4-5.0) g/dl Globulin gm/dL Albumin/Globulin Ratio (1-2) Urine Color (Yellow) Urine Appearance (Clear) Urine pH (5.0-8.0) Ur Specific [place] (1.005-1.030) Urine Protein (Negative) Urine Glucose (UA) (Negative) Urine Ketones (Negative) Urine Occult Blood (Negative) Urine Nitrite (Negative) Urine Bilirubin (Negative) Urine Urobilinogen (0.2-1.0) Ur Leukocyte Esterase (Negative) Ketones (0.0-0.3) mM 01/03/21 01/03/21 01/03/21 Range/Units 16:05 17:47 18:16 WBC (4.23-9.07) K/mm3 RBC (4.63-6.08) M/mm3 Hgb (13.7-17.5) gm/dl Hct (40.1-51.0) % MCV (79.0-92.2) fl MCH (25.7-32.2) pg MCHC (32.2-35.5) g/dl RDW Std Deviation (35.1-43.9) fL Plt Count (163-337) K/mm3 MPV (9.4-12.3) fl Neut % (Auto) (34.0-67.9) % Lymph % (Auto) (21.8-53.1) % [place] % (Auto) (5.3-12.2) % Eos % (Auto) (0.8-7.0) Baso % (Auto) (0.1-1.2) % Neut # (Auto) (1.78-5.38) K/mm3 Lymph # (Auto) (1.32-3.57) K/mm3 [place] # (Auto) (0.30-0.82) K/mm3 Eos # (Auto) (0.04-0.54) K/mm3 Baso # (Auto) (0.01-0.08) K/mm3 D-Dimer, Quantitative (0.19-0.50) mg/L Puncture Site Lt radial ABG pH 7.42 (7.35-7.45) ABG pCO2 34.5 L (35.0-45.0) mmHg ABG pO2 76.0 L (80.0-100.0) mmHg ABG HCO3 22.0 (22.0-26.0) meq/L ABG O2 Saturation 95.8 L (96.0-97.0) % ABG Base Excess -1.4 (-2-2.0) Kaz Test Positive O2 Delivery Device Room air Sodium 134 L (136-145) mEq/L Potassium 5.0 (3.5-5.1) mEq/L Chloride 98 (98-107) mEq/L Carbon Dioxide 26 (21-32) mEq/L Anion Gap 15.0 (5-15) BUN 28 H (7-18) mg/dL Creatinine 2.0 H (0.7-1.3) mg/dL Est Cr Clr Drug Dosing 32.44 mL/min Estimated GFR (MDRD) 33 (>60) mL/min BUN/Creatinine Ratio 14.0 (14-18) Glucose 549 H* (70-99) mg/dL POC Glucose (70-99) mg/dL Hemoglobin A1c ( - 5.6) % Lactic Acid (0.4-2.0) mmol/L Calcium 9.2 (8.5-10.1) mg/dL Magnesium 1.9 (1.8-2.4) mg/dL Total Bilirubin 0.4 (0.2-1.0) mg/dL AST 16 (15-37) U/L ALT 24 (16-63) U/L Alkaline Phosphatase 82 (46-116) U/L C-Reactive Protein 15.9 H* (<1.0) mg/dL Total Protein 7.2 (6.4-8.2) g/dl Albumin 3.5 (3.4-5.0) g/dl Globulin 3.7 gm/dL Albumin/Globulin Ratio 1.0 (1-2) Urine Color (Yellow) Urine Appearance (Clear) Urine pH (5.0-8.0) Ur Specific [place] (1.005-1.030) Urine Protein (Negative) Urine Glucose (UA) (Negative) Urine Ketones (Negative) Urine Occult Blood (Negative) Urine Nitrite (Negative) Urine Bilirubin (Negative) Urine Urobilinogen (0.2-1.0) Ur Leukocyte Esterase (Negative) Ketones 0.18 (0.0-0.3) mM 01/03/21 01/03/21 01/03/21 Range/Units 18:16 18:30 19:53 WBC (4.23-9.07) K/mm3 RBC (4.63-6.08) M/mm3 Hgb (13.7-17.5) gm/dl Hct (40.1-51.0) % MCV (79.0-92.2) fl MCH (25.7-32.2) pg MCHC (32.2-35.5) g/dl RDW Std Deviation (35.1-43.9) fL Plt Count (163-337) K/mm3 MPV (9.4-12.3) fl Neut % (Auto) (34.0-67.9) % Lymph % (Auto) (21.8-53.1) % [place] % (Auto) (5.3-12.2) % Eos % (Auto) (0.8-7.0) Baso % (Auto) (0.1-1.2) % Neut # (Auto) (1.78-5.38) K/mm3 Lymph # (Auto) (1.32-3.57) K/mm3 [place] # (Auto) (0.30-0.82) K/mm3 Eos # (Auto) (0.04-0.54) K/mm3 Baso # (Auto) (0.01-0.08) K/mm3 D-Dimer, Quantitative (0.19-0.50) mg/L Puncture Site ABG pH (7.35-7.45) ABG pCO2 (35.0-45.0) mmHg ABG pO2 (80.0-100.0) mmHg ABG HCO3 (22.0-26.0) meq/L ABG O2 Saturation (96.0-97.0) % ABG Base Excess (-2-2.0) Kaz Test O2 Delivery Device Sodium (136-145) mEq/L Potassium (3.5-5.1) mEq/L Chloride (98-107) mEq/L Carbon Dioxide (21-32) mEq/L Anion Gap (5-15) BUN (7-18) mg/dL Creatinine (0.7-1.3) mg/dL Est Cr Clr Drug Dosing mL/min Estimated GFR (MDRD) (>60) mL/min BUN/Creatinine Ratio (14-18) Glucose (70-99) mg/dL POC Glucose 298 H (70-99) mg/dL Hemoglobin A1c ( - 5.6) % Lactic Acid 1.2 (0.4-2.0) mmol/L Calcium (8.5-10.1) mg/dL Magnesium (1.8-2.4) mg/dL Total Bilirubin (0.2-1.0) mg/dL AST (15-37) U/L ALT (16-63) U/L Alkaline Phosphatase (46-116) U/L C-Reactive Protein (<1.0) mg/dL Total Protein (6.4-8.2) g/dl Albumin (3.4-5.0) g/dl Globulin gm/dL Albumin/Globulin Ratio (1-2) Urine Color Yellow (Yellow) Urine Appearance Clear (Clear) Urine pH 7.0 (5.0-8.0) Ur Specific [place] 1.015 (1.005-1.030) Urine Protein Negative (Negative) Urine Glucose (UA) 2+ H (Negative) Urine Ketones Negative (Negative) Urine Occult Blood Negative (Negative) Urine Nitrite Negative (Negative) Urine Bilirubin Negative (Negative) Urine Urobilinogen 0.2 (0.2-1.0) Ur Leukocyte Esterase Negative (Negative) Ketones (0.0-0.3) mM Meds: Medications Generic Name Dose Route Start Last Admin Trade Name Freq PRN Reason Stop Dose Admin Diphenhydramine HCl 50 mg 01/03/21 15:36 Diphenhydramine 50 Mg/Ml Sdv IVPUSH ASDIRECTED PRN hypersensitivity reaction Epinephrine HCl 0.3 mg 01/03/21 15:36 Epinephrine 1 Mg/Ml Sdv IM ASDIRECTED PRN hypersensitivity reaction Famotidine 20 mg 01/03/21 15:36 Famotidine 20 Mg/2 Ml Sdv IVPUSH ASDIRECTED PRN hypersensitivity reaction Methylprednisolone Sodium Succinate 125 mg 01/03/21 15:36 Methylprednisolone Sodium Succinate 125 Mg/2 Ml Sdv IVPUSH ASDIRECTED PRN hypersensitivity reaction Sodium Chloride 30 ml 01/03/21 15:45 01/03/21 17:19 Sodium Chloride 0.9% 10 Ml Syringe FLUSH 30 ml ASDIRECTED SRAVANI Administration Sodium Chloride 10 ml 01/03/21 15:36 Sodium Chloride 0.9% 10 Ml Syringe FLUSH ASDIRECTED PRN Keep Vein Open Discontinued Medications Generic Name Dose Route Start Last Admin Trade Name Freq PRN Reason Stop Dose Admin Bamlanivimab 700 mg/ 160 mls @ 310 mls/hr 01/03/21 16:30 01/03/21 16:47 Etesevimab 1,400 mg/ Sodium IV 01/03/21 17:00 310 mls/hr Chloride ONETIME ONE Administration Sodium Chloride 1,000 mls @ 999 mls/hr 01/03/21 18:53 01/03/21 19:21 Normal Saline IV 01/03/21 19:53 999 mls/hr ONETIME ONE Administration Insulin Human Regular 10 unit 01/03/21 18:53 01/03/21 19:19 Insulin Regular, Human 100 Units/Ml 3 Ml Vial SUBCUT 01/03/21 18:54 10 unit ONETIME ONE Administration - Re-Assessments/Exams Free Text/Narrative Re-Assessment/Exam: 01/03/21 17:06 Radiologist impression portable view of the chest: 1. Mild cardiomegaly which is an interval change from prior chest x-ray. 2. Nothing acute is otherwise seen. I spoke with the patient to provide information about Regeneron for himself. I offered her the fax sheet for patients and caregivers for Regeneron to read and review. I stated the therapy has been approved by an emergency use authorization process and has not fully been FDA reviewed or approved. I shared the potential risks from the therapy including risks/adverse reactions. I discussed there are other potential treatment options that are currently not FDA approved to treat COVID-19. Offered opportunity ask questions and all questions were answered. Patient voiced understanding and agreed to proceed with treatment for himself. 01/03/21 19:14 Hematology is essentially unremarkable. Coagulation reveals a D-dimer of 1.33 Blood gas pH 7.42, PCO2 34.5, PO2 76, bicarb 22.0 Chemistry reveals a sodium of 134, potassium 5.0, carbon dioxide 26, anion gap 15.0, BUN 28, creatinine 2.0, GFR 33, glucose 549, hemoglobin A1c 11.9, lactic acid 1.2, magnesium 1.9, C-reactive protein 15.9 Urinalysis reveals 2+ glucose, negative urine ketones, negative leukocyte Estrace Serum ketones 0.18 Discussed the patient's lab studies with Dr. Valverde and he recommends treatment with 1 L of IV fluids and 10 units of regular insulin. We will recheck the patient's blood sugar in 1 hour after receiving the insulin. 01/03/21 19:54 Nursing staff notifies me that the patient does not want to stay to receive his IV fluids and have his blood sugar rechecked. He is leaving AGAINST MEDICAL ADVICE. The risks have been discussed with him which could even potentially lead to . Departure - Departure Time of Disposition: 20:23 Disposition: Against Medical Advice 07 Condition: Good Clinical Impression: COVID-19, Hyperglycemia - Discharge Information Referrals: PCP,None [Primary Care Provider] - Forms: ED Department Discharge Sepsis Event Note (ED) - Evaluation Sepsis Screening Result: No Definite Risk - Focused Exam Vital Signs: Vital Signs Temp Pulse Resp BP Pulse Ox 01/03/21 18:30 87 16 182/88 H 96 01/03/21 18:03 83 182/90 H 99 01/03/21 17:21 96.8 F L 87 18 172/95 H 99 01/03/21 17:11 85 97 01/03/21 16:52 96.5 F L 87 16 165/83 H 97 01/03/21 15:08 98.2 F 93 16 181/91 H 100 - My Orders Last 24 Hours: My Active Orders 01/03/21 15:36 EPINEPHrine [Adrenalin] 0.3 mg IM ASDIRECTED PRN Famotidine [Pepcid] 20 mg IVPUSH ASDIRECTED PRN Sodium Chloride 0.9% [Saline Flush] 10 ml FLUSH ASDIRECTED PRN diphenhydrAMINE [Benadryl] 50 mg IVPUSH ASDIRECTED PRN methylPREDNISolone Sod Succ [Solu-MEDROL] 125 mg IVPUSH ASDIRECTED PRN Saline Lock Insert [OM.PC] Stat 01/03/21 15:37 Vital Signs [RC] Q15M 01/03/21 15:45 Sodium Chloride 0.9% [Saline Flush] 30 ml FLUSH ASDIRECTED - Assessment/Plan Last 24 Hours: My Active Orders 01/03/21 15:36 EPINEPHrine [Adrenalin] 0.3 mg IM ASDIRECTED PRN Famotidine [Pepcid] 20 mg IVPUSH ASDIRECTED PRN Sodium Chloride 0.9% [Saline Flush] 10 ml FLUSH ASDIRECTED PRN diphenhydrAMINE [Benadryl] 50 mg IVPUSH ASDIRECTED PRN methylPREDNISolone Sod Succ [Solu-MEDROL] 125 mg IVPUSH ASDIRECTED PRN Saline Lock Insert [OM.PC] Stat 01/03/21 15:37 Vital Signs [RC] Q15M 01/03/21 15:45 Sodium Chloride 0.9% [Saline Flush] 30 ml FLUSH ASDIRECTED
[2021-01-03] MEDS ORDERED: Bamlanivimab 700 MG, ETESEVIMAB 1,400 MG in Sodium Chloride 0.9% 100 ML IV ONE (16:30)
--- NOTE | 2021-01-03 16:43 | CR ---
Chest: Portable view of the chest was obtained. Comparison: Prior chest x-ray of 03/21/[address] performed on 03/23/18. Heart size is slightly enlarged. Tortuous thoracic aorta is seen. Lungs are clear with no acute parenchymal change. Bony structure shows a detached osseous structure off the distal right clavicle which appears old. Impression: 1. Mild cardiomegaly which is an interval change from prior chest x-ray. 2. Nothing acute is otherwise seen. Diagnostic code #2
[2021-01-03 17:41] LABS: HEMOGLOBIN A1C 11.9 %
[2021-01-03] MEDS ORDERED: Sodium Chloride 0.9% 1,000 ML IV ONE (18:53)
[2021-01-03] MEDS ORDERED: Insulin Regular, Human 100 Units/ML 3 ML Vial SUBCUT ONE (18:53)
== END 2021-01-03 20:00 | disposition left against medical advice (07) ==
LOC: JD.ED 14:07
DX: U07.1 COVID-19 (principal); E11.65 Type 2 diabetes mellitus with hyperglycemia; E78.00 Pure hypercholesterolemia, unspecified; I10 Essential (primary) hypertension; J44.9 Chronic obstructive pulmonary disease, unspecified; Z79.4 Long term (current) use of insulin; Z79.02 Long term (current) use of antithrombotics/antiplatelets; Z79.899 Other long term (current) drug therapy
CPT/HCPCS: 36415; 36600; 71045; 80053; 81003; 82009; 82803; 82947; 83036; 83605; 83735; 85025; 85379; 86140; 99283; J1815; J7030; M0245; Q0245

== ENCOUNTER 2023-01-26 16:36 | Emergency (ER) | payer MEDICARE, OTHER | END 2023-01-26 19:25 | disposition home or self-care (01) | LOC: JD.ED 16:36 | DX: R45.6 Violent behavior (principal); I10 Essential (primary) hypertension; J44.9 Chronic obstructive pulmonary disease, unspecified; E78.00 Pure hypercholesterolemia, unspecified; E11.9 Type 2 diabetes mellitus without complications; Z79.84 Long term (current) use of oral hypoglycemic drugs; Z79.899 Other long term (current) drug therapy; Z79.4 Long term (current) use of insulin; Z86.16 Personal history of COVID-19; Z79.02 Long term (current) use of antithrombotics/antiplatelets | CPT/HCPCS: 99283; 99284 ==

== ENCOUNTER 2023-03-01 22:13 | Emergency (ER) | payer MEDICARE, OTHER ==
[2023-03-01] MEDS ORDERED: Sodium Chloride 0.9% 10 ML Syringe FLUSH PRN (22:42)
[2023-03-01] MEDS ORDERED: Acetaminophen 325 MG Tab PO ONE (23:25)
[2023-03-01 23:27] LABS: CORONAVIRUS COVID-19 NAA POSITIVE (NEGATIVE); INFLUENZA A NAA NEGATIVE (NEGATIVE); RESPIRATORY SYNCYTIAL VIR NAA NEGATIVE (NEGATIVE)
[2023-03-01 23:44] LABS: INR 1.12; PROTHROMBIN TIME 11.9 SECONDS (9.7-12.0)
[2023-03-01 23:51] LABS: LACTIC ACID 1.1 mmol/L (0.4-2.0)
[2023-03-02] LABS: A/G RATIO 0.9 (1-2); ALBUMIN 3.3 g/dl (3.4-5.0); ANION GAP 17.5 (5-15); BILIRUBIN TOTAL 0.3 mg/dL (0.2-1.0); BUN/CREATININE RATIO 15.7 (14-18); C-REACTIVE PROTEIN 1.7 mg/dL (<1.0); CALCIUM 9.2 mg/dL (8.5-10.1); CREATININE 2.1 mg/dL (0.7-1.3); EST CRCL DRUG DOSING (CG) 29.45 mL/min; POTASSIUM,K 4.5 mEq/L (3.5-5.1); PROTEIN TOTAL,TP 7.2 g/dl (6.4-8.2)
[2023-03-02 00:24] LABS: BASOPHILS PERCENT AUTO 0.4 % (0.0-1.0); EOSINOPHILS ABSOLUTE AUTO 0.1 K/mm3 (0.0-0.4); EOSINOPHILS PERCENT AUTO 0.9 % (0.0-6.0); HEMATOCRIT 33.7 % (42.0-52.0); HEMOGLOBIN 11.3 gm/dl (14.0-18.0); IMMATURE GRAN ABSOLUTE AUTO 0.02 K/mm3 (0.00-0.05); IMMATURE GRAN PERCENT AUTO 0.4 % (0.0-0.4); LYMPHOCYTES PERCENT AUTO 18.8 % (24.0-44.0); MEAN CORPUSCULAR HEMOGLOBIN 30.9 pg (28.0-32.0); MEAN CORPUSCULAR HGB CONC 33.5 g/dl (32.0-36.0); MEAN CORPUSCULAR VOLUME 92.1 fl (83.0-99.0); MEAN PLATELET VOLUME 9.9 fl (9.4-12.4); MONOCYTES ABSOLUTE AUTO 0.7 K/mm3 (0.0-0.8); MONOCYTES PERCENT AUTO 12.8 % (0.0-8.0); NEUTROPHILS ABSOLUTE AUTO 3.6 K/mm3 (1.8-7.7); NEUTROPHILS PERCENT AUTO 66.7 % (41.0-71.0); PLATELET COUNT,PLT 123 K/mm3 (150-400); RED BLOOD CELL COUNT 3.66 M/mm3 (4.52-5.90); WHITE BLOOD CELL COUNT,WBC 5.32 K/mm3 (3.9-11.3)
[2023-03-02] MEDS ORDERED: Furosemide 40 MG/4 ML VIAL IVPUSH ONE (01:58)
[2023-03-02] MEDS ORDERED: Heparin Sodium/D5W 25,000 UNITS/500 ML BAG IV SCH ×2 (03:30→03:45)
== END 2023-03-02 05:33 ==
LOC: JD.ED 22:13
DX: U07.1 COVID-19 (principal); I21.4 Non-ST elevation (NSTEMI) myocardial infarction; B27.90 Infectious mononucleosis, unspecified without complication; R79.89 Other specified abnormal findings of blood chemistry; I10 Essential (primary) hypertension; E78.00 Pure hypercholesterolemia, unspecified; K21.9 Gastro-esophageal reflux disease without esophagitis; J44.9 Chronic obstructive pulmonary disease, unspecified; E11.9 Type 2 diabetes mellitus without complications; E66.9 Obesity, unspecified; Z68.31 Body mass index [BMI] 31.0-31.9, adult; Z79.82 Long term (current) use of aspirin; Z79.899 Other long term (current) drug therapy; Z79.84 Long term (current) use of oral hypoglycemic drugs; Z88.8 Allergy status to other drugs, medicaments and biological substances; Z88.1 Allergy status to other antibiotic agents
CPT/HCPCS: 0241U; 36415; 71046; 80053; 83605; 83880; 84484; 85025; 85610; 86140; 87040; 93005; 96365; 96366; 96375; 99285; A9270; J1644; J1940; J3490

== ENCOUNTER 2023-04-18 16:40 | Emergency (ER) | payer MEDICARE, OTHER ==
[2023-04-18 17:33] LABS: BASOPHILS PERCENT AUTO 0.2 % (0.0-1.0); EOSINOPHILS ABSOLUTE AUTO 0.1 K/mm3 (0.0-0.4); EOSINOPHILS PERCENT AUTO 1.7 % (0.0-6.0); HEMATOCRIT 29.1 % (42.0-52.0); HEMOGLOBIN 9.9 gm/dl (14.0-18.0); IMMATURE GRAN ABSOLUTE AUTO 0.03 K/mm3 (0.00-0.05); IMMATURE GRAN PERCENT AUTO 0.4 % (0.0-0.4); LYMPHOCYTES PERCENT AUTO 12.8 % (24.0-44.0); MEAN CORPUSCULAR HEMOGLOBIN 31.4 pg (28.0-32.0); MEAN CORPUSCULAR VOLUME 92.4 fl (83.0-99.0); MEAN PLATELET VOLUME 9.4 fl (9.4-12.4); MONOCYTES ABSOLUTE AUTO 0.7 K/mm3 (0.0-0.8); NEUTROPHILS ABSOLUTE AUTO 6.2 K/mm3 (1.8-7.7); NEUTROPHILS PERCENT AUTO 75.9 % (41.0-71.0); PLATELET COUNT,PLT 137 K/mm3 (150-400); RED BLOOD CELL COUNT 3.15 M/mm3 (4.52-5.90); WHITE BLOOD CELL COUNT,WBC 8.12 K/mm3 (3.9-11.3)
[2023-04-18] MEDS ORDERED: Sodium Chloride 0.9% 10 ML Syringe FLUSH PRN (17:48)
[2023-04-18 17:58] LABS: A/G RATIO 0.8 (1-2); ALBUMIN 2.9 g/dl (3.4-5.0); ANION GAP 13.4 (5-15); BILIRUBIN TOTAL 0.2 mg/dL (0.2-1.0); BUN/CREATININE RATIO 17.5 (14-18); EST CRCL DRUG DOSING (CG) 28.98 mL/min; POTASSIUM,K 4.4 mEq/L (3.5-5.1); PROTEIN TOTAL,TP 6.7 g/dl (6.4-8.2)
[2023-04-18] MEDS: Furosemide 40 MG/4 ML VIAL IVPUSH ONE (18:50)
== END 2023-04-18 20:14 | disposition home or self-care (01) ==
LOC: JD.ED 16:40
DX: I21.4 Non-ST elevation (NSTEMI) myocardial infarction (principal); I50.31 Acute diastolic (congestive) heart failure; R79.89 Other specified abnormal findings of blood chemistry; I10 Essential (primary) hypertension; E78.00 Pure hypercholesterolemia, unspecified; J44.9 Chronic obstructive pulmonary disease, unspecified; E66.9 Obesity, unspecified; E11.9 Type 2 diabetes mellitus without complications; Z79.4 Long term (current) use of insulin; Z79.84 Long term (current) use of oral hypoglycemic drugs; Z79.82 Long term (current) use of aspirin; Z79.899 Other long term (current) drug therapy; Z88.8 Allergy status to other drugs, medicaments and biological substances; Z86.16 Personal history of COVID-19; Z68.34 Body mass index [BMI] 34.0-34.9, adult
CPT/HCPCS: 36415; 71045; 80053; 83880; 84484; 85025; 93005; 96374; 99285; J1940

== ENCOUNTER 2024-02-06 03:52 | Emergency (ER) | payer MEDICARE, OTHER ==
[2024-02-06] MEDS: diphenhydrAMINE 50 MG/ML SDV IVPUSH ONE (04:33)
[2024-02-06] MEDS: Metoclopramide 10 MG/2 ML SDV IVPUSH ONE (04:36)
== END 2024-02-06 07:14 ==
LOC: JD.ED 03:52
DX: S13.9XXA Sprain of joints and ligaments of unspecified parts of neck, initial encounter (principal); S30.0XXA Contusion of lower back and pelvis, initial encounter; S70.02XA Contusion of left hip, initial encounter; S00.531A Contusion of lip, initial encounter; S00.31XA Abrasion of nose, initial encounter; J32.0 Chronic maxillary sinusitis; K05.6 Periodontal disease, unspecified; K06.9 Disorder of gingiva and edentulous alveolar ridge, unspecified; I10 Essential (primary) hypertension; E78.00 Pure hypercholesterolemia, unspecified; J44.9 Chronic obstructive pulmonary disease, unspecified; K21.9 Gastro-esophageal reflux disease without esophagitis; M19.90 Unspecified osteoarthritis, unspecified site; E11.9 Type 2 diabetes mellitus without complications; E66.9 Obesity, unspecified; Z86.16 Personal history of COVID-19; Z96.659 Presence of unspecified artificial knee joint; Z88.8 Allergy status to other drugs, medicaments and biological substances; Z79.4 Long term (current) use of insulin; Z79.51 Long term (current) use of inhaled steroids; Z79.82 Long term (current) use of aspirin; Z79.899 Other long term (current) drug therapy; W01.198A Fall on same level from slipping, tripping and stumbling with subsequent striking against other object, initial encounter
CPT/HCPCS: 70450; 70486; 72125; 72170; 93005; 96374; 96375; 99284; J1200; J2765; 93010

== ENCOUNTER 2024-11-20 11:32 | Emergency (ER) | payer MEDICARE, OTHER ==
[2024-11-20 12:21] LABS: BASOPHILS ABSOLUTE AUTO 0.0 K/mm3 (0.0-0.2); BASOPHILS PERCENT AUTO 0.3 % (0.0-1.0); EOSINOPHILS ABSOLUTE AUTO 0.1 K/mm3 (0.0-0.4); EOSINOPHILS PERCENT AUTO 0.4 % (0.0-6.0); IMMATURE GRAN ABSOLUTE AUTO 0.15 K/mm3 (0.00-0.05); IMMATURE GRAN PERCENT AUTO 1.3 % (0.0-0.4); LYMPHOCYTES ABSOLUTE AUTO 1.0 K/mm3 (1.0-4.8); LYMPHOCYTES PERCENT AUTO 8.9 % (24.0-44.0); MEAN PLATELET VOLUME 9.7 fl (9.4-12.4); MONOCYTES ABSOLUTE AUTO 0.5 K/mm3 (0.0-0.8); MONOCYTES PERCENT AUTO 4.4 % (0.0-8.0); NEUTROPHILS ABSOLUTE AUTO 9.9 K/mm3 (1.8-7.7); NEUTROPHILS PERCENT AUTO 84.7 % (41.0-71.0); NRBC ABSOLUTE 0.00 (0.00-0.02); NRBC PERCENT 0.0 % (0.0-0.2); PLATELET COUNT,PLT 172 K/mm3 (150-400); RED BLOOD CELL COUNT 3.86 M/mm3 (4.52-5.90); WHITE BLOOD CELL COUNT,WBC 11.65 K/mm3 (3.9-11.3)
[2024-11-20 12:42] LABS: INR 1.11
[2024-11-20 12:56] LABS: A/G RATIO 0.6 (1-2); ALANINE AMINOTRANSFERASE,ALT 22.0 U/L (16-63); ASPARTATE AMNIOTRANSFERASE,AST 53.0 U/L (15-37); BILIRUBIN TOTAL 0.6 mg/dL (0.2-1.0); BLOOD UREA NITROGEN,BUN 44.0 mg/dL (7-18); CARBON DIOXIDE,CO2 31.0 mEq/L (21-32); CHLORIDE,CL 98.0 mEq/L (98-107); CREATININE 2.1 mg/dL (0.7-1.3); EST CRCL DRUG DOSING (CG) 30.79 mL/min; ESTIMATED GFR 31.0 mL/min (>60); GLUCOSE RANDOM 245.0 mg/dL (70-99); POTASSIUM,K 3.4 mEq/L (3.5-5.1); PROTEIN TOTAL,TP 7.9 g/dl (6.4-8.2); SODIUM,NA 139.0 mEq/L (136-145)
[2024-11-20 13:17] LABS: TROPONIN I HIGH SENSITIVITY 42023.0 pg/mL (<=76)
[2024-11-20] MEDS: Bumetanide 1 MG/4 ML MDV IVPUSH STA (13:46)
[2024-11-20] MEDS ORDERED: Sodium Chloride 0.9% 10 ML Syringe FLUSH PRN (15:01)
== END 2024-11-20 15:00 | disposition home or self-care (01) ==
LOC: JD.ED 11:32
DX: I21.4 Non-ST elevation (NSTEMI) myocardial infarction (principal); R79.89 Other specified abnormal findings of blood chemistry; I11.0 Hypertensive heart disease with heart failure; I50.9 Heart failure, unspecified; F03.90 Unspecified dementia, unspecified severity, without behavioral disturbance, psychotic disturbance, mood disturbance, and anxiety; E78.00 Pure hypercholesterolemia, unspecified; J44.9 Chronic obstructive pulmonary disease, unspecified; K21.9 Gastro-esophageal reflux disease without esophagitis; E11.9 Type 2 diabetes mellitus without complications; Z86.16 Personal history of COVID-19; Z88.8 Allergy status to other drugs, medicaments and biological substances; Z79.02 Long term (current) use of antithrombotics/antiplatelets; Z79.899 Other long term (current) drug therapy; Z79.82 Long term (current) use of aspirin; Z79.4 Long term (current) use of insulin
CPT/HCPCS: 36415; 71045; 80053; 83690; 83735; 83880; 84484; 85025; 85610; 93005; 96374; 99285; A9270; 93010; 99284